=== PATIENT | female | born 1955 | race Caucasian/White ===

== ENCOUNTER 2024-03-05 22:57 | Inpatient (IN) | payer MEDICARE, SELFPAY ==
[2024-03-05] VITALS (10 sets, daily range): BP systolic 93–117; BP diastolic 46–73; BMI 15.2
[2024-03-05 18:34] LABS: % Basophils 0.1 % (0-2); % Eosinophils 0.1 % (0-6); % Immature Granulocytes 0.6 % (0-0.5); % Lymphocytes 19.8 % (20.5-51.1); % Monocytes 8.1 % (1.7-9.3); % Neutrophils 71.3 % (42.2-75.2); Absolute Immature Granulocytes 0.1 10^3/uL (0-0.05); Absolute Lymphocytes 1.8 10^3/uL (1.2-3.4); Absolute Monocytes 0.7 10^3/uL (0.1-0.6); Absolute Neutrophils 6.4 10^3/uL (1.4-6.5); Hematocrit 41.3 % (37.0-47.0); Hemoglobin 15.1 g/dL (12.0-16.0); Mean Corp Hgb Conc. 36.6 g/dL (33.0-37.0); Mean Corpuscular Hgb 31.8 pg (27.0-31.0); Mean Corpuscular Volume 86.9 fL (81.0-99.0); Mean Platelet Volume 9.8 fL (7.4-10.4); Nucleated Red Blood Cells % 0 %; Platelet Count 168 10^3/uL (130-400); Red Blood Cell Count 4.75 10^6/uL (4.20-5.40); Red Cell Dist. Width 13.7 % (11.5-14.5); White Blood Cell Count 8.9 10^3/uL (4.8-10.8)
[2024-03-05] MEDS: NSS 500 IV (18:47)
[2024-03-05 19:08] LABS: Ammonia < 9 umol/L (9-30)
[2024-03-05 19:39] LABS: ALT (SGPT) 41 U/L (0-35); AST (SGOT) 66 U/L (14-36); Albumin 3.1 g/dl (3.5-5.0); Alkaline Phosphatase 77 U/L (38-126); Blood Urea Nitrogen 14 mg/dl (7-17); Calcium 8.1 mg/dl (8.4-10.2); Carbon Dioxide 25 mmol/L (22-30); Chloride 95 mmol/L (98-107); Estimated Creatinine Clearance 45 ml/min; Glucose 83 mg/dl (70-99); Potassium 4.1 mmol/L (3.5-5.1); Sodium 126 mmol/L (135-145); Total Bilirubin 0.9 mg/dl (0.2-1.3); Total Protein 5.8 g/dl (6.3-8.2); eGFR > 60.00
--- NOTE | 2024-03-05 20:05 | ED.GENMED ---
History of Present Illness
General
Chief Complaint: Change in Mental Status
Time Seen by Provider: 03/05/24 18:24
History of Present Illness
History of Present Illness:
68-year-old female with remote history of breast cancer status postmastectomy presents to the emergency department for evaluation of confusion for the past 24 to 48 hours. states that she typically has no level of confusion, seems to be
'off' for the past few days but does not provide many further details of the symptoms. Patient cannot tell me why she is here, she is oriented only to place and self, disoriented to time. She denies any pain or other complaints otherwise. The
does note that she is not eaten or drank for the past several days and it has been 'a few weeks' since she has last eaten a full meal. Does not seek preventative medical care, estimates it has been at least 15 years since her last
medical evaluation. He notes that it was in the early that she was treated for breast cancer
Review of Systems
Review of Systems
Allergies reviewed?: Yes
All Other Systems: ROS reviewed and negative except as documented in HPI and ROS
Phy Exam
Physical Exam
Physical Exam:
GEN: Frail and emaciated appearing, no acute distress
Eyes: PERRLA, EOMs intact, no scleral icterus
HENT: NCAT, oral mucosa dry, severe bitemporal wasting
Lungs: CTAB, no wheezes, rales, rhonchi, normal chest wall excursion
Cardiac: RRR, no M/R/G, no peripheral edema. Radial pulses 2+ bilat
Abdomen: Flat, nontender
Neuro: Alert, follows commands, oriented to self and place only, disoriented to time, bilateral upper and lower extremity strength is symmetric
MSK: No gross deformity or ecchymosis. No edema. No digital clubbing
Skin: No rashes, petechiae. Normal color, no pallor or jaundice.
Psych: Calm, cooperative, proper hygiene
Course
Orders/Labs/Results
Orders:
Orders
03/05/24 18:03
EKG [Electrocardiogram (*1)] Urgent
Reason for Study: Tachycardia
EKG- Treatment ONCE
03/05/24 18:24
Ammonia Urgent
Complete Blood Count/With Diff Urgent
03/05/24 18:37
CT Head W/o Iv Contrast Urgent
Comment:
Reason For Exam: altered mental status
0.9% Sodium Chloride 500 ml [Nss] 500 ml IV BOLUS
03/05/24 19:13
Comprehensive Metabolic Panel Urgent
Serum Osmolality Urgent
Comment: ADD ON
03/05/24 19:48
Add On- LAB Urgent
Tests Added?: serum osmol
03/05/24 20:37
Osmolality, Random Urine Urgent
Date Specimen was Collected: 03/05/24
Time Specimen was Collected: 20:36
Urinalysis Reflex To Culture Urgent
Date Specimen was Collected: 03/05/24
Time Specimen was Collected: 20:36
Urine Microscopic Reflex Cult Urgent
Urine Sodium Urgent
Date Specimen was Collected: 03/05/24
Time Specimen was Collected: 20:36
Urine Culture Urgent
MICHAEL Source: U
Specimen Description:
Date Specimen was Collected: 03/05/24
Time Specimen was Collected: 20:36
03/05/24 21:03
0.9% Sodium Chloride 1000 ml [Nss] 1,000 ml IV 78 mls/hr
Abnormal Lab Results
03/05/24 03/05/24 03/05/24
18:24 19:13 20:37
MCH 31.8 H pg
(27.0-31.0)
Abs Immat Gran (auto) 0.1 H 10^3/uL
(0-0.05)
Absolute Monos (auto) 0.7 H 10^3/uL
(0.1-0.6)
Immature Gran % 0.6 H %
(0-0.5)
Lymphocytes % 19.8 L %
(20.5-51.1)
Sodium 126 L mmol/L
(135-145)
Chloride 95 L mmol/L
(98-107)
Serum Osmolality 261 L mOsm/kg
(275-300)
Calcium 8.1 L mg/dl
(8.4-10.2)
AST 66 H U/L
(14-36)
ALT 41 H U/L
(0-35)
Ammonia < 9 L umol/L
(9-30)
Total Protein 5.8 L g/dl
(6.3-8.2)
Albumin 3.1 L g/dl
(3.5-5.0)
Urine Ketones 1+ A
(Negative)
Ur Occult Blood Reflex 1+ A
(Negative)
Leukocyte Esterase Rfl Trace A
(Negative)
Urine Bacteria (Reflex) Moderate A
(Negative)
Urine Sodium 18 L mmol/L
(30-90)
03/05/24 18:24
03/05/24 19:13
Vital Signs
Initial and Last Documented VS:
Initial Vital Signs
Temp Pulse Resp BP Pulse Ox
98.2 F 115 18 102/73 97
03/05/24 17:58 03/05/24 17:58 03/05/24 17:58 03/05/24 17:58 03/05/24 17:58
Last Documented Vital Signs
Temp Pulse Resp BP Pulse Ox
98.2 F 78 15 117/46 100
03/05/24 17:58 03/05/24 21:08 03/05/24 21:08 03/05/24 21:08 03/05/24 21:08
MDM/Problems Addressed
MDM/Problems Addressed:
Patient is moderately hyponatremic and likely profoundly dehydrated based on history, she does not take any prescription meds that would cause SIADH. Due to her significant confusion will admit for gentle IV fluid rehydration, no evidence of
infectious etiology, CT of the head with no acute disease.
*Critical Care Note
Total Time (30-74mins, 75-104mins- exclusive of procedures): Not Applicable
ED Attending Note
-
Portions of this chart may have been created with voice recognition software.� Occasional wrong word or��sound alike� substitutions may have occurred due to the inherent limitations of voice recognition software.
Discharge Plan
Departure
Patient Disposition: Admit
Date of Disposition: 03/05/24
Time of Disposition: 21:42
Presentation/result/management discussed w/ accepting MD/DO: Hospitalist
Discharge Problem:
Acute metabolic encephalopathy, Acute hyponatremia, Acute dehydration, Malnutrition
Prescriptions:
No Action
No Current Medications
0
Referrals:
NONE,* [Family Provider] -
Interventions
Interventions:
*Risk Screen - Suicide Last Done: 03/05/24 17:58
*General Assessment Last Done: 03/05/24 17:58
*Neglect/Abuse Screening Last Done: 03/05/24 17:58
ED- Pulmonary Assessment Last Done: 03/05/24 18:30
ED- Neurological Assessment Last Done: 03/05/24 18:30
ED- Cardiac Assessment Last Done: 03/05/24 18:30
Discharge Date and Time
Print Language: TAIWANESE
[2024-03-05 20:41] LABS: Osmolality Serum 261 mOsm/kg (275-300)
[2024-03-05 20:46] LABS: Urine Albumin Trace (Neg - Trace); Urine Bilirubin Negative (Negative); Urine Character Slightly Cloudy (Clear); Urine Color Yellow; Urine Glucose Negative (Negative); Urine Ketone 1+ (Negative); Urine Leukocyte Trace (Negative); Urine Nitrite Negative (Negative); Urine Occult Blood 1+ (Negative); Urine Urobilinogen Negative (Neg - 1+)
[2024-03-05 20:59] LABS: Urine Squamous Cell >30 /LPF (Few)
[2024-03-05 21:01] LABS: Urine Bacteria Moderate (Negative); Urine Red Blood Cell 0-2 /HPF (0-2)
[2024-03-05 21:06] LABS: Urine Sodium 18 mmol/L (30-90)
[2024-03-05] MEDS: NSS 1000 IV (21:12)
[2024-03-05 21:15] LABS: Osmolality Urine 481 mOsm/kg (300-900)
--- NOTE | 2024-03-05 21:44 | HPS.HSE ---
Addendum entered and electronically signed by Korey Malik DO 03/05/24 23:32:
Patient seen and examined independently. Agree with findings and plan as set forth by ZUNILDA Khan.
Patient is a 68y F with PMH significant for breast cancer and no recent routine healthcare who presents to ED with her for evaluation of confusion. states that patient has seemed increasingly confused over the past 2 days or so.
Intermittent visual hallucinations noted at home. In the ED, patient is alert but confused. Not oriented to time. She denies any specific complaints.
states that she eats very little - and has done for several years. She drinks water throughout the day and drinks 2-3 beers daily on average. She is an every day smoker.
Ass:
Acute Confusion / Disorientation
Symptomatic Hyponatremia
Alcohol Use Disorder
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
Tobacco Use Disorder
Protein-Calorie Malnutrition
Breast Cancer s/p Mastectomy (1989)
Plan:
Admit for further evaluation and treatment.
Symptoms / confusion likely secondary to Na abnormality which seems secondary to beer potomania / SIADH.
CT head with old CVA / encephalomalacia which could contribute to inappropriate ADH release.
Check CXR, TFTs, AM Cortisol, etc.
Fluid restriction.
Follow for improvement in Na levels and confusion.
Nephrology evaluation for additional recommendations.
Monitor for symptoms of alcohol withdrawal and treat as needed.
Original Note:
Family Physician
-
Family Physician: * NONE
Chief Complaint
-
change in mental status
History of Present Illness
Patient is a 68-year-old female with PMH breast cancer with mastectomy in 1989. Patient is AAOx2 with noted confusion. Patients at bedside that helped supply HPI r/t patient confusion. Over past two day patient has had new onset confusion
with episodes of visual and audible hallucinations. Mr. Pierson states that patient has been eating very little over the past several years, approximately a total of 1-1.5 meals a day. Patient states she drinks water all day, but unable to quantify
an amount, states he has not paid that close attention but she does carry a 'glass' of water with her all day. Patient also reports she smokes a half of pack of cigarettes a day for years and drinks two to three beers a day. Patient and
spouse deny any recent travel, sickness, shortness of breath, chest pain, nausea, vomiting, constipation, diarrhea, urinary symptoms, fever or chills.
Medical History
Past Medical History
Past Medical History: Reports Other
Additional Past Medical History:
Breast Cancer
Past Surgical History: Reports Other
Additional Past Surgical History:
Mastectomy 1989
Social History
Tobacco: Smoker (0.5 pack per day)
Alcohol: Daily (2-3 beers per day)
Drug: None
Personal:
Living: With Family
Employment: Retired
Family History
Family History: Cancer (Mom and Sister from breast cancer)
Allergies / Home Medications
Allergies reflects when Allergies were last updated in [facility].
Home Medications with original date entered in [facility]
Allergy/Medication List:
Allergies
Allergy/AdvReac Type Severity Reaction Status Date / Time
No Known Allergies Allergy Unverified 03/05/24 17:58
Home Medications Table - record
�Medication �Instructions �Recorded �Confirmed
No Meds [No Current Medications] 03/05/24 03/05/24
Review of Systems
-
History Source: Patient and Family
Constitutional: Reports No Symptoms
EENT: Reports No Symptoms
Respiratory: Reports No Symptoms
Cardiac: Reports No Symptoms
Abdomen/GI: Reports No Symptoms
: Reports No Symptoms
Musculoskeletal: Reports No Symptoms
Skin: Reports No Symptoms
Neurological: Reports Other (change in mental status, confusion, audible/visual hallucinations)
Endocrine: Reports No Symptoms
Hematologic/Lymphatic: Reports No Symptoms
Psych: Reports No Symptoms
Physical Exam
Vital Signs
Vital Signs
Temp Pulse Resp BP Pulse Ox
98.2 F 78 15 117/46 100
03/05/24 17:58 03/05/24 21:08 03/05/24 21:08 03/05/24 21:08 03/05/24 21:08
Physical Exam
General: Well Developed, Well Nourished, No Apparent Distress and Cachectic
HEENT: NormoCephalic, Moist mucous membranes, Atraumatic and PERRLA
Respiratory: Clear and Non Labored Respirations
Cardiac: S1/S2 and Regular Rhythm; No Murmur, Rub or Gallop
Breast: Deferred by me
GI: Soft, Non Tender, Non Distended and Normal Bowel Sounds; No Organomegaly
Rectal: Deferred by Provider
Genito-urinary: Deferred by me
Musculoskeletal: No Clubbing, No Cyanosis and No Edema
Skin: Warm, Dry and IV/Catheter Site; No Rash
Neuro: Awake, Alert, Nonfocal/grossly intact and Other (Oriented to self and place, not oriented to time)
Hematologic/Lymphatic: No Lymphadenopathy
Psych: Calm and Confused
Laboratory Results
-
03/05/24 18:24
03/05/24 19:13
Laboratory Results
Total Bilirubin 0.9 mg/dl (0.2-1.3) 03/05/24 19:13
AST 66 U/L (14-36) H 03/05/24 19:13
ALT 41 U/L (0-35) H 03/05/24 19:13
Alkaline Phosphatase 77 U/L (38-126) 03/05/24 19:13
Data Reviewed
-
CT Scan: Report Reviewed by me (No acute intracranial abnormality noted. No acute intracranial hemorrhage. Old infarct with encephalomalacia involving the right temporal lobe.)
Lab Data: Labs Reviewed by me (Na+ 126)
Impression/Plan
-
IMPRESSION/PLAN:
#Hyponatremia vs. SIADH
- Na+ 126
- Head CT: No acute intracranial abnormality noted. No acute intracranial hemorrhage. 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
- Chest X-Ray
- Fluid restriction 40 ounces/day
- Consult Nephrology
#Alcohol dependency
- drinks 2-3 beers per day for years
- MSAS protocol
#Nicotine dependency
- smokes 0.5/pk/day
- encourage smoking cessation
- affects all aspects of care
Full Code
DVT Px:Lovenox
[2024-03-06 00:28] VITALS: BP 119/78; BMI 15.2
--- NOTE | 2024-03-06 00:30 | PTCARENOTE ---
Pt arrived to [facility] from ED and ambulated with x1 assist from stretcher to bed. Pt is AAOx2 to person and place. No complaints of pain, VSS. Call mari explained to pt who verbalizes understanding but remains confused; bed alarm in place and bed
in lowest position.
[2024-03-06 01:47] LABS: INR 1.07; PT 13.7 Sec (11.4-14.6)
[2024-03-06 01:48] LABS: APTT 26.8 Sec (23.4-35.0)
[2024-03-06 01:52] LABS: Phosphorus 3.9 mg/dl (2.5-4.5)
[2024-03-06 02:19] LABS: Alcohol None Detected; GGTP 68 U/L (12-43)
[2024-03-06 02:26] LABS: B-Hydroxybutyrate 1.27 mmol/L (0.02-0.27)
[2024-03-06 05:55] LABS: Urine Albumin Negative (Neg - Trace); Urine Bilirubin Negative (Negative); Urine Character Clear (Clear); Urine Color Yellow; Urine Glucose Negative (Negative); Urine Ketone 2+ (Negative); Urine Leukocyte Negative (Negative); Urine Nitrite Negative (Negative); Urine Occult Blood Negative (Negative); Urine Urobilinogen Negative (Neg - 1+)
[2024-03-06 06:09] LABS: Amphetamines Negative (Negative); Barbiturates Negative (Negative); Benzodiazepines Negative (Negative); Buprenorphine Negative (Negative); Cocaine Negative (Negative); Marijuana Negative (Negative); Methadone Negative (Negative); Methamphetamines Negative (Negative); Opiates Negative (Negative); Phencyclidine Negative (Negative); Tricyclic Antidepressants Negative (Negative)
[2024-03-06 07:00] VITALS: BP 105/65
[2024-03-06 07:25] LABS: Hematocrit 33.9 % (37.0-47.0); Hemoglobin 12.4 g/dL (12.0-16.0); Mean Corp Hgb Conc. 36.6 g/dL (33.0-37.0); Mean Corpuscular Volume 87.6 fL (81.0-99.0); Mean Platelet Volume 9.6 fL (7.4-10.4); Platelet Count 141 10^3/uL (130-400); Red Blood Cell Count 3.87 10^6/uL (4.20-5.40); Red Cell Dist. Width 13.7 % (11.5-14.5); White Blood Cell Count 7.6 10^3/uL (4.8-10.8)
[2024-03-06 08:07] LABS: Cortisol, Random 19.5 ug/dl; TSH 0.56 uIU/ml (0.47-4.68)
[2024-03-06 08:25] LABS: Blood Urea Nitrogen 13 mg/dl (7-17); Calcium 7.9 mg/dl (8.4-10.2); Carbon Dioxide 18 mmol/L (22-30); Chloride 100 mmol/L (98-107); Estimated Creatinine Clearance 52 ml/min; Glucose 61 mg/dl (70-99); Potassium 3.5 mmol/L (3.5-5.1); Sodium 129 mmol/L (135-145); eGFR > 60.00
[2024-03-06 08:36] LABS: Osmolality Serum 264 mOsm/kg (275-300)
[2024-03-06 08:52] LABS: Osmolality Urine 509 mOsm/kg (300-900)
[2024-03-06] MEDS: THIAMINE INJECTION 200 MG IV (09:33)
[2024-03-06] MEDS: FOLVITE 1 MG PO (09:33)
--- NOTE | 2024-03-06 09:44 | W.PN.HOSP.TC ---
Today's Communication/Plan
-
High-dose IV thiamine
Fluid restriction
Nutrition consult
Nephrology consult
PT/OT
Assessment / Plan
Assessment / Plan
Gen-awake, alert, not completely oriented, NAD
HEENT-NC, AT, anicteric, clear oral mm
Neck-supple
CV-reg, no M, +S1/S2
Lungs-clear B/L
Abd-soft, NT, ND
Ext-no edema
Musculoskeletal-no cyanosis, clubbing
Skin-warm and dry
Neuro-grossly non-focal. Right beating nystagmus on right lateral gaze
Psych-calm, cooperative
Wernicke encephalopathy -likely due to alcoholism. Diagnostic criteria are nystagmus, confusion, malnutrition. Ambulate with PT to assess for ataxia. Start high-dose IV thiamine.
Hyponatremia - probably due to multiple factors including SIADH, alcohol consumption, low solute consumption, etc. Sodium improving with fluid restriction. Nephrology consulted.
TSH normal, random cortisol 19.5. Serum osmolality 264, urine osmolality 481, urine sodium 18.
Alcohol use disorder -she claims she drinks 4 cans of beer daily, 12 ounces each. Denies liquor consumption. Counseled on need to abstain moving forward to improve her health. Watch for alcohol withdrawal symptoms. Continue thiamine, folic acid.
Tobacco dependence -chest x-ray consistent with hyperinflation, likely COPD. Incidental 1.5 cm sclerotic lesion in the region of the left suprascapular notch noted. Will need outpatient follow-up.
Protein/calorie malnutrition -in the setting of alcohol abuse. Consult nutrition.
Evidence of old infarct on CT head with encephalomalacia involving the right temporal lobe.
History of breast cancer -treated in 1989 with mastectomy.
Full code
Anticipated Discharge: > 48 hours
Subjective/Interval History
-
Date of Service: March 06, 2024
Patient seen and examined. No complaints.
Objective Data
-
Labs:
Laboratory Results
03/06/24 03/06/24
01:25 06:50
WBC 7.6
Hgb 12.4
Hct 33.9 L
Plt Count 141
PT 13.7
INR 1.07
APTT 26.8
Sodium 129 L
Potassium 3.5
Chloride 100
Carbon Dioxide 18 L
BUN 13
Creatinine 0.6
Glucose 61 L
Calcium 7.9 L
Vital Signs:
Vital Signs
Temp Pulse Resp BP Pulse Ox
98.1 F 99 16 105/65 94
03/06/24 07:00 03/06/24 07:00 03/06/24 07:00 03/06/24 07:00 03/06/24 07:00
I&O
03/05/24 03/06/24 03/07/24
06:59 06:59 06:59
Intake Total 240 / 240
Balance 240 / 240
Review of Systems
-
History Source: Patient
All other systems: Reviewed and negative
--- NOTE | 2024-03-06 11:01 | W.CON.NEPH ---
Consultation
-
Date/Time Consultation Requested: 03/06/2024 7:30 AM
Date/Time Consultation Performed: 03/06/2024 11:00
Requesting Provider: Dr. Malik
Performing Provider: Dr. Chong
Reason for Consultation: Hyponatremia
Medical History
-
Chief Complaint: Hyponatremia
History of Present Illness:
Patient is a 68-year-old female with PMH breast cancer with mastectomy in 1989. The patient presented to the emergency room with confusion. Over past two days the patient has had new onset confusion with episodes of visual and audible
hallucinations. Her states that patient has been eating very little over the past several years, approximately a total of 1-1.5 meals a day. Patient states she drinks water all day, but unable to quantify an amount, states he has
not paid that close attention but she does carry a 'glass' of water with her all day. Patient also reports she smokes a half of pack of cigarettes a day for years and drinks two to three beers a day. Patient and spouse deny any recent travel,
sickness, shortness of breath, chest pain, nausea, vomiting, constipation, diarrhea, urinary symptoms, fever or chills. When she presented to the hospital her serum sodium level was depressed to 126 and nephrology was consulted.
Past Medical History
Breast cancer status post mastectomy in 1989
Social History
Tobacco: Smoker
Alcohol: Daily
Family History
No CKD
Allergies / Home Medications
Allergy/AdvReac Type Severity Reaction Status Date / Time
No Known Allergies Allergy Unverified 03/05/24 17:58
�Medication �Instructions �Recorded �Confirmed �Type
No Meds [No Current Medications] 03/05/24 03/05/24 History
Review of Systems
-
History Source: Patient
All other systems: Negative unless noted
Constitutional: Other (Decreased appetite)
Abdomen/GI: Anorexia
Neurological: Other (Confusion)
Physical Exam
Vital Signs
Vital Signs
Temp Pulse Resp BP Pulse Ox
98.1 F 99 16 105/65 94
03/06/24 07:00 03/06/24 07:00 03/06/24 07:00 03/06/24 07:00 03/06/24 07:00
Lab Results
03/06/24 06:50
03/06/24 06:50
WBC 7.6 10^3/uL (4.8-10.8) 03/06/24 06:50
RBC 3.87 10^6/uL (4.20-5.40) L 03/06/24 06:50
Hgb 12.4 g/dL (12.0-16.0) 03/06/24 06:50
Hct 33.9 % (37.0-47.0) L 03/06/24 06:50
Plt Count 141 10^3/uL (130-400) 03/06/24 06:50
Sodium 129 mmol/L (135-145) L 03/06/24 06:50
Potassium 3.5 mmol/L (3.5-5.1) 03/06/24 06:50
Chloride 100 mmol/L (98-107) 03/06/24 06:50
Carbon Dioxide 18 mmol/L (22-30) L 03/06/24 06:50
BUN 13 mg/dl (7-17) 03/06/24 06:50
Creatinine 0.6 mg/dL (0.6-1.0) 03/06/24 06:50
eGFR > 60.00 03/06/24 06:50
Glucose 61 mg/dl (70-99) L 03/06/24 06:50
Calcium 7.9 mg/dl (8.4-10.2) L 03/06/24 06:50
Phosphorus 3.9 mg/dl (2.5-4.5) 03/06/24 01:25
Albumin 3.1 g/dl (3.5-5.0) L 03/05/24 19:13
Physical Exam
General: AOx3, Nontoxic , NAD, profoundly cachectic
HEENT: PERRL, EOMI, Anicteric, Conjunctivae Clear, Ear/Nose Intact, Hearing Normal, Oropharynx Clear/Moist, Dentition Intact, Facial Symmetry, Neck Supple, Neck: Trachea Midline, No JVD and No Thyromegaly, no Bruits
Respiratory: Clear to auscultation bilaterally with normal lung exersion
Cardiac: S1/S2 and Regular Rate/Rhythm
Breast: Deferred by me
Abdomen: Soft, Nontender, Nondistended, Normal Bowel Sounds and No Hepatosplenomegaly
Rectal: Deferred by Provider
Genito-urinary: No Costovertebral Tenderness
Extremities: No Clubbing, No Cyanosis and No Edema
Skin: No Rash or open lesions
Neuro: Nonfocal/Grossly Intact, CN II-XII (Intact) and Strength (Musculoskeletal exam 5 out of 5 both upper and lower extremities)
Hematologic/Lymphatic: No Cervical Lymphadenopathy, No Submandibular Lymphadenopathy and No Supraclavicular Lymphadenopathy
Psych: Mood/afflect pleasant, Insight/judgement questionable
Vascular: plus 2 pedal and radial pulses
Data Reviewed
-
CT Scan: Report Reviewed by me (CT of head report reviewed old infarct with encephalomalacia of right temporal lobe no acute findings)
Labs: Labs Reviewed by me (CBC BMP urine osmolarity urine sodium)
Old Records: Requested (Will obtain old patient records for previous sodium levels)
Assessment/Plan
-
Impression:
Hyponatremia
Confusion on presentation
Cachexia and anorexia
Tobacco and alcohol dependence
Plan:
Hyponatremia:
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
-I also believe her excessive fluid intake and poor solute intake in the setting of her hyponatremia is contributing
-Fluid restriction and affect
-If serum sodium levels do not rise I would implement salt tablets first
-Monitor closely for alcohol withdrawal
-TSH and cortisol within acceptable limits
[2024-03-06] MEDS: THIAMINE INJECTION 255 MG IV ×2 (12:55→16:32)
[2024-03-06] MEDS: KCL 20 MEQ PO (12:56)
--- NOTE | 2024-03-06 14:28 | CM ---
Initial assessment completed with pt.
Pt is a 68yr old female admitted with Hyponatremia/acute metabolic encephalopathy.
At baseline, pt lives with her in a 2 story home with 3ste and a 2nd floor bed/bath. Pt does have 1st floor bath.
Pt is indep and drives at bedside.
Pt has no equip and no hx of VN/SNF
PCP; [facility]
Pharm; [facility]
PLAN; Pt would like to dc to home with no needs identified.
[2024-03-06 14:45] VITALS: BP 112/77; O2SAT 95
[2024-03-06 15:00] VITALS: BP 119/73
[2024-03-06] MEDS: LOVENOX 40 MG SC (20:41)
[2024-03-06 22:58] VITALS: BP 103/55
[2024-03-07] MEDS: THIAMINE INJECTION 255 MG IV ×4 (00:06→23:48)
[2024-03-07 07:48] LABS: ALT (SGPT) 39 U/L (0-35); AST (SGOT) 56 U/L (14-36); Alkaline Phosphatase 73 U/L (38-126); Blood Urea Nitrogen 12 mg/dl (7-17); Calcium 8.2 mg/dl (8.4-10.2); Carbon Dioxide 17 mmol/L (22-30); Chloride 103 mmol/L (98-107); Estimated Creatinine Clearance 52 ml/min; Glucose 45 mg/dl (70-99); Magnesium 2.2 mg/dl (1.6-2.3); Phosphorus 3.5 mg/dl (2.5-4.5); Potassium 3.8 mmol/L (3.5-5.1); Sodium 132 mmol/L (135-145); Total Bilirubin 0.6 mg/dl (0.2-1.3); Total Protein 5.5 g/dl (6.3-8.2); eGFR > 60.00
[2024-03-07 08:01] VITALS: BP 104/54
[2024-03-07 08:10] LABS: Glucose - Point of Care 77 mg/dl (70-99)
[2024-03-07] MEDS: KCL 20 MEQ PO (09:41)
[2024-03-07] MEDS: FOLVITE 1 MG PO (09:41)
[2024-03-07 10:40] VITALS: BMI 15.2
--- NOTE | 2024-03-07 11:32 | W.PN.HOSP.TC ---
Today's Communication/Plan
-
Add Ensure
Encourage p.o. intake
Continue vitamins
PT/OT
Viral hepatitis panel
Assessment / Plan
Assessment / Plan
Gen-awake, alert, not completely oriented, NAD
HEENT-NC, AT, anicteric, clear oral mm
Neck-supple
CV-reg, no M, +S1/S2
Lungs-clear B/L
Abd-soft, NT, ND
Ext-no edema
Musculoskeletal-no cyanosis, clubbing
Skin-warm and dry
Neuro-grossly non-focal. Right beating nystagmus on right lateral gaze
Psych-calm, cooperative
Wernicke encephalopathy -likely due to alcoholism. Diagnostic criteria are nystagmus, confusion, malnutrition. Ambulate with PT to assess for ataxia. Continue high-dose IV thiamine.
Hyponatremia - probably due to multiple factors including SIADH, alcohol consumption, low solute consumption, etc. Sodium improving with fluid restriction. Nephrology consulted.
TSH normal, random cortisol 19.5. Serum osmolality 264, urine osmolality 481, urine sodium 18.
Hypoglycemia -likely due to malnutrition, alcoholism. Cortisol 19.5 making adrenal insufficiency unlikely.
[place] metabolic acidosis noted, bicarb 17. Positive urine ketones. Suspect starvation ketosis.
Alcohol use disorder -she claims she drinks 4 cans of beer daily, 12 ounces each. Denies liquor consumption. Counseled on need to abstain moving forward to improve her health. Watch for alcohol withdrawal symptoms. Continue thiamine, folic acid.
Patient has little insight into her drinking problem.
Acute hepatitis -mild transaminase elevation noted, GGT 68. Possibly due to alcohol induced hepatitis. Check viral hepatitis panel.
Tobacco dependence -chest x-ray consistent with hyperinflation, likely COPD. Incidental 1.5 cm sclerotic lesion in the region of the left suprascapular notch noted. Will need outpatient follow-up.
Protein/calorie malnutrition -in the setting of alcohol abuse. Nutrition consult noted. Ensure added.
Evidence of old infarct on CT head with encephalomalacia involving the right temporal lobe.
History of breast cancer -treated in 1989 with mastectomy.
Full code
PT/OT
Anticipated Discharge: 24 - 48 hours
Subjective/Interval History
-
Date of Service: March 07, 2024
Patient seen and examined. No complaints.
Objective Data
-
Labs:
Laboratory Results
03/07/24
06:33
Sodium 132 L
Potassium 3.8
Chloride 103
Carbon Dioxide 17 L
BUN 12
Creatinine 0.6
Glucose 45 L*
Calcium 8.2 L
Total Bilirubin 0.6
AST 56 H
ALT 39 H
Alkaline Phosphatase 73
Vital Signs:
Vital Signs
Temp Pulse Resp BP Pulse Ox
97.7 F 81 16 104/54 94
03/07/24 08:01 03/07/24 08:01 03/07/24 08:01 03/07/24 08:01 03/07/24 08:01
I&O
03/06/24 03/07/24 03/08/24
06:59 06:59 06:59
Intake Total 240 / 240 1250 / 1250
Balance 240 / 240 1250 / 1250
Review of Systems
-
History Source: Patient
All other systems: Reviewed and negative
--- NOTE | 2024-03-07 11:58 | CM ---
Patient with Dx Wernicke encephalopathy -likely due to alcoholism. Receiving IV Folic Acid & Thiamine. MSAS 1 per nursing. PT 03/06 recommends HH.
Message from Dr Rivas- patient needs KAMALA evdevika.
Spoke with patient who declines offer to speak with KAMALA, even regarding outpatient referrals or resources.
Plan follow patient's mobility and offer VN for PT as needed.
Plan home.
[2024-03-07 13:58] VITALS: BP 107/64; PULSE 74; O2SAT 95
--- NOTE | 2024-03-07 14:44 | W.PN.NEPH.PH ---
Today's Communication / Plan
-
Adjusted fluid restriction to 48 ounce
Follow BMP
Assessment/Plan
-
Impression:
Hyponatremia
Confusion on presentation/Wernicke's encephalopathy
Cachexia and anorexia
Tobacco and alcohol dependence
Plan:
Hyponatremia:
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
-I also believe her excessive fluid intake and poor solute intake in the setting of her hyponatremia is contributing
-Fluid restriction continues and sodium now up to 132
-If serum sodium levels do not rise I would implement salt tablets first
-Monitor closely for alcohol withdrawal
-TSH and cortisol within acceptable limits
-
-
Date of Service: March 07, 2024
CC / HPI / ROS
-
Chief Complaint:
Hyponatremia
History of Present Illness:
Serum sodium up to 132 on fluid restriction
Hemodynamically stable
Review of Systems:
Mental status improving
Poor appetite
No chest pain or shortness of breath
Labs
-
Labs:
WBC 7.6 10^3/uL (4.8-10.8) 03/06/24 06:50
RBC 3.87 10^6/uL (4.20-5.40) L 03/06/24 06:50
Hgb 12.4 g/dL (12.0-16.0) 03/06/24 06:50
Hct 33.9 % (37.0-47.0) L 03/06/24 06:50
Plt Count 141 10^3/uL (130-400) 03/06/24 06:50
Sodium 132 mmol/L (135-145) L 03/07/24 06:33
Potassium 3.8 mmol/L (3.5-5.1) 03/07/24 06:33
Chloride 103 mmol/L (98-107) 03/07/24 06:33
Carbon Dioxide 17 mmol/L (22-30) L 03/07/24 06:33
BUN 12 mg/dl (7-17) 03/07/24 06:33
Creatinine 0.6 mg/dL (0.6-1.0) 03/07/24 06:33
eGFR > 60.00 03/07/24 06:33
Glucose 45 mg/dl (70-99) L* 03/07/24 06:33
Calcium 8.2 mg/dl (8.4-10.2) L 03/07/24 06:33
Phosphorus 3.5 mg/dl (2.5-4.5) 03/07/24 06:33
Albumin 3.0 g/dl (3.5-5.0) L 03/07/24 06:33
Physical Exam
-
Vital Signs:
Vital Signs
Temp Pulse Resp BP Pulse Ox
97.7 F 81 16 104/54 94
03/07/24 08:01 03/07/24 08:01 03/07/24 08:01 03/07/24 08:01 03/07/24 09:00
Cardiovascular:: Regular rate and rhythm
Respiratory:: Bilateral: CTA
Lung Excursion:: Normal
Abdomen:: Nontender and Soft
Bowel Sounds:: Normal
Extremity Edema:: None: Bilateral:
Jo Catheter: No
[2024-03-07 15:00] VITALS: BP 110/69
[2024-03-07] MEDS: LOVENOX 40 MG SC (17:39)
[2024-03-07 23:57] VITALS: BP 95/70
[2024-03-08 07:26] VITALS: BP 124/71
[2024-03-08] MEDS: THIAMINE INJECTION 250 MG IV (08:44)
[2024-03-08] MEDS: FOLVITE 1 MG PO (08:46)
[2024-03-08] MEDS: KCL 20 MEQ PO ×2 (08:46→13:09)
[2024-03-08 09:11] LABS: ALT (SGPT) 32 U/L (0-35); AST (SGOT) 42 U/L (14-36); Albumin 2.3 g/dl (3.5-5.0); Alkaline Phosphatase 56 U/L (38-126); Blood Urea Nitrogen 6 mg/dl (7-17); Calcium 7.8 mg/dl (8.4-10.2); Carbon Dioxide 22 mmol/L (22-30); Chloride 104 mmol/L (98-107); Estimated Creatinine Clearance 52 ml/min; Glucose 81 mg/dl (70-99); Magnesium 1.9 mg/dl (1.6-2.3); Phosphorus 2.9 mg/dl (2.5-4.5); Potassium 3.4 mmol/L (3.5-5.1); Sodium 133 mmol/L (135-145); Total Bilirubin 0.3 mg/dl (0.2-1.3); Total Protein 4.6 g/dl (6.3-8.2); eGFR > 60.00
--- NOTE | 2024-03-08 12:52 | W.PN.NEPH.PH ---
Today's Communication / Plan
-
replace k
FR
Assessment/Plan
-
Impression:
Hyponatremia
Confusion on presentation/Wernicke's encephalopathy
Cachexia and anorexia
Tobacco and alcohol dependence
Plan:
Hyponatremia:
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
-I also believe her excessive fluid intake and poor solute intake in the setting of her hyponatremia is contributing
-Fluid restriction continues and sodium now up to 133
replace k
-If serum sodium levels do not rise I would implement salt tablets first
-Monitor closely for alcohol withdrawal
-TSH and cortisol within acceptable limits
-
-
Date of Service: March 08, 2024
CC / HPI / ROS
-
Chief Complaint:
Hyponatremia
History of Present Illness:
Serum sodium up to 133 on fluid restriction
Hemodynamically stable
Review of Systems:
Mental status improving
improving appetite
No chest pain or shortness of breath
Labs
-
Labs:
WBC 7.6 10^3/uL (4.8-10.8) 03/06/24 06:50
RBC 3.87 10^6/uL (4.20-5.40) L 03/06/24 06:50
Hgb 12.4 g/dL (12.0-16.0) 03/06/24 06:50
Hct 33.9 % (37.0-47.0) L 03/06/24 06:50
Plt Count 141 10^3/uL (130-400) 03/06/24 06:50
Sodium 133 mmol/L (135-145) L 03/08/24 08:26
Potassium 3.4 mmol/L (3.5-5.1) L 03/08/24 08:26
Chloride 104 mmol/L (98-107) 03/08/24 08:26
Carbon Dioxide 22 mmol/L (22-30) 03/08/24 08:26
BUN 6 mg/dl (7-17) L 03/08/24 08:26
Creatinine 0.4 mg/dL (0.6-1.0) L 03/08/24 08:26
eGFR > 60.00 03/08/24 08:26
Glucose 81 mg/dl (70-99) 03/08/24 08:26
Calcium 7.8 mg/dl (8.4-10.2) L 03/08/24 08:26
Phosphorus 2.9 mg/dl (2.5-4.5) 03/08/24 08:26
Albumin 2.3 g/dl (3.5-5.0) L 03/08/24 08:26
Physical Exam
-
Vital Signs:
Vital Signs
Temp Pulse Resp BP Pulse Ox
98.3 F 75 17 124/71 99
03/08/24 07:26 03/08/24 07:26 03/08/24 07:26 03/08/24 07:26 03/08/24 07:26
Cardiovascular:: Regular rate and rhythm
Respiratory:: Bilateral: CTA
Lung Excursion:: Normal
Abdomen:: Nontender and Soft
Extremity Edema:: None: Bilateral:
Jo Catheter: No
--- NOTE | 2024-03-08 13:38 | W.PN.HOSP.TC ---
Today's Communication/Plan
-
Conitnue IV thiamine
Assessment / Plan
Assessment / Plan
Imaging
Physical Exam
NAD, resting comfortably in bed, at bedside
Temporal wasting, muscle atrophy
Scleral anicteric
Moist mucous membranes
No JVD
CTA bilateral
Normal S1-S2 no murmurs
Soft nontender nondistended bowel sounds active
No peripheral pitting edema, No asterixs
Moves extremities spontaneously
AAOx3
Assessment and Plan
Warnicke's encephalopathy secondary to alcoholism as per previous documentation. I agree with this diagnosis.
-Continue on high-dose IV thiamine
Hyponatremia
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
-Improving now 133
-Fluid restrict
-If not improving then would consider adding salt tabs per nephrology's recommendations
Hypokalemia
-Replete as needed
Severe protein calorie malnutrition with evidence of cachexia temporal wasting
-Encourage protein intake
-Ensure
-Encourage p.o. intake
-Albumin 2.3 with a BMI of 15.2
-Nutrition consult noted
-In the setting of alcohol abuse
Transaminitis
-Related to alcohol use
-Improving mild labs
Anticipated Discharge: 24 - 48 hours
Subjective/Interval History
-
Date of Service: March 08, 2024
Seen and examined. No new complaints. No acute overnight events.
Objective Data
-
Labs:
Laboratory Results
03/08/24 03/08/24
07:20 08:26
Sodium Cancelled 133 L
Potassium Cancelled 3.4 L
Chloride Cancelled 104
Carbon Dioxide Cancelled 22
BUN Cancelled 6 L
Creatinine Cancelled 0.4 L
Glucose Cancelled 81
Calcium Cancelled 7.8 L
Total Bilirubin Cancelled 0.3
AST Cancelled 42 H
ALT Cancelled 32
Alkaline Phosphatase Cancelled 56
Vital Signs:
Vital Signs
Temp Pulse Resp BP Pulse Ox
98.3 F 75 17 124/71 99
03/08/24 07:26 03/08/24 07:26 03/08/24 07:26 03/08/24 07:26 03/08/24 07:26
I&O
03/07/24 03/08/24 03/09/24
06:59 06:59 06:59
Intake Total 1250 / 1250 2069
Balance 1250 / 1250 2069
[2024-03-08 15:27] VITALS: BP 124/62
--- NOTE | 2024-03-08 16:36 | CM ---
Chart reviewed and plan is to home with spouse when stable, possibly with visiting nurse services if patient is agreeable. per notes patient has declined [facility] follow up after discharge.
Plan; Home with spouse when stable.
[2024-03-08] MEDS: LOVENOX 40 MG SC (17:11)
[2024-03-08 21:49] LABS: Hepatitis B Core Ab, Total Negative (Negative); Hepatitis C Antibody Negative (Negative)
[2024-03-08 22:34] LABS: Hepatitis A IgM Antibody Negative (Negative)
[2024-03-08 23:30] VITALS: BP 131/63
[2024-03-09 00:52] LABS: Glucose - Point of Care 81 mg/dl (70-99)
[2024-03-09 07:25] VITALS: BP 119/61
[2024-03-09 08:10] LABS: ALT (SGPT) 29 U/L (0-35); AST (SGOT) 31 U/L (14-36); Albumin 2.5 g/dl (3.5-5.0); Alkaline Phosphatase 60 U/L (38-126); Blood Urea Nitrogen 5 mg/dl (7-17); Calcium 7.8 mg/dl (8.4-10.2); Carbon Dioxide 21 mmol/L (22-30); Chloride 103 mmol/L (98-107); Estimated Creatinine Clearance 52 ml/min; Glucose 71 mg/dl (70-99); Magnesium 1.9 mg/dl (1.6-2.3); Phosphorus 3.2 mg/dl (2.5-4.5); Potassium 3.6 mmol/L (3.5-5.1); Sodium 132 mmol/L (135-145); Total Bilirubin 0.4 mg/dl (0.2-1.3); Total Protein 4.7 g/dl (6.3-8.2); eGFR > 60.00
[2024-03-09] MEDS: KCL 20 MEQ PO (10:07)
[2024-03-09] MEDS: FOLVITE 1 MG PO (10:08)
[2024-03-09] MEDS: THIAMINE INJECTION 250 MG IV (10:08)
[2024-03-09] MEDS: FLUSH (NSS) 1 FLUSH IV (10:09)
--- NOTE | 2024-03-09 11:46 | CM ---
telephonic nurse case manager reviewed patient's chart and met with patient this am, case specialist offered patient visiting nurses services at discharge however patient declined stating that her spouse and daughter would be home to assist if needed.
Plan; Home when stable, patient declined [facility] and visiting nurses at discharge.
--- NOTE | 2024-03-09 14:21 | W.PN.HOSP.TC ---
Today's Communication/Plan
-
still with poor po intake.
will continue ivf for now
likely DC tomorrow
Assessment / Plan
Assessment / Plan
Imaging
Physical Exam
NAD, resting comfortably in bed, at bedside
Temporal wasting, muscle atrophy
Scleral anicteric
Moist mucous membranes
No JVD
CTA bilateral
Normal S1-S2 no murmurs
Soft nontender nondistended bowel sounds active
No peripheral pitting edema, No asterixs
Moves extremities spontaneously
AAOx3
Assessment and Plan
Warnicke's encephalopathy secondary to alcoholism as per previous documentation. I agree with this diagnosis.
-Continue on high-dose IV thiamine
Hyponatremia
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
-Improving now 133
-Fluid restrict
-If not improving then would consider adding salt tabs per nephrology's recommendations
Hypokalemia
-Replete as needed
Severe protein calorie malnutrition with evidence of cachexia temporal wasting
-Encourage protein intake
-Ensure
-Encourage p.o. intake
-Albumin 2.3 with a BMI of 15.2
-Nutrition consult noted
-In the setting of alcohol abuse
Transaminitis
-Related to alcohol use
-Improving mild labs
Anticipated Discharge: Within 24 hours
Subjective/Interval History
-
Date of Service: March 09, 2024
Seen and examined. No new complaints. No acute overniggt events
Objective Data
-
Labs:
Laboratory Results
03/09/24
07:15
Sodium 132 L
Potassium 3.6
Chloride 103
Carbon Dioxide 21 L
BUN 5 L
Creatinine 0.4 L
Glucose 71
Calcium 7.8 L
Total Bilirubin 0.4
AST 31
ALT 29
Alkaline Phosphatase 60
Vital Signs:
Vital Signs
Temp Pulse Resp BP Pulse Ox
98.4 F 61 20 119/61 96
03/09/24 07:25 03/09/24 07:25 03/09/24 07:25 03/09/24 07:25 03/09/24 07:25
I&O
03/08/24 03/09/24 03/10/24
06:59 06:59 06:59
Intake Total 2069 480 / 480
Balance 2069 480 / 480
[2024-03-09 15:09] VITALS: BP 131/67
--- NOTE | 2024-03-09 17:49 | W.PN.NEPH.PH ---
Today's Communication / Plan
-
will s/o, call with ?s
Assessment/Plan
-
Impression:
Hyponatremia
Confusion on presentation/Wernicke's encephalopathy
Cachexia and anorexia
Tobacco and alcohol dependence
Plan:
Hyponatremia:
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
-I also believe her excessive fluid intake and poor solute intake in the setting of her hyponatremia is contributing
-Fluid restriction continues and sodium stable in low 130s
-If serum sodium levels do not rise I would implement salt tablets first
-TSH and cortisol within acceptable limits
encourage solute intake
f/u with PCP, BMP in 1 week post d/c
-
-
Date of Service: March 09, 2024
CC / HPI / ROS
-
Chief Complaint:
Hyponatremia
History of Present Illness:
Serum sodium relatively stable at 132 on fluid restriction
Hemodynamically stable
Review of Systems:
Mental status improving
No chest pain or shortness of breath
Labs
-
Labs:
WBC 7.6 10^3/uL (4.8-10.8) 03/06/24 06:50
RBC 3.87 10^6/uL (4.20-5.40) L 03/06/24 06:50
Hgb 12.4 g/dL (12.0-16.0) 03/06/24 06:50
Hct 33.9 % (37.0-47.0) L 03/06/24 06:50
Plt Count 141 10^3/uL (130-400) 03/06/24 06:50
Sodium 132 mmol/L (135-145) L 03/09/24 07:15
Potassium 3.6 mmol/L (3.5-5.1) 03/09/24 07:15
Chloride 103 mmol/L (98-107) 03/09/24 07:15
Carbon Dioxide 21 mmol/L (22-30) L 03/09/24 07:15
BUN 5 mg/dl (7-17) L 03/09/24 07:15
Creatinine 0.4 mg/dL (0.6-1.0) L 03/09/24 07:15
eGFR > 60.00 03/09/24 07:15
Glucose 71 mg/dl (70-99) 03/09/24 07:15
Calcium 7.8 mg/dl (8.4-10.2) L 03/09/24 07:15
Phosphorus 3.2 mg/dl (2.5-4.5) 03/09/24 07:15
Albumin 2.5 g/dl (3.5-5.0) L 03/09/24 07:15
Physical Exam
-
Vital Signs:
Vital Signs
Temp Pulse Resp BP Pulse Ox
99.2 F 58 18 131/67 95
03/09/24 15:09 03/09/24 15:09 03/09/24 15:09 03/09/24 15:09 03/09/24 15:09
Cardiovascular:: Regular rate and rhythm
Respiratory:: Bilateral: CTA
Lung Excursion:: Normal
Abdomen:: Nontender and Soft
Extremity Edema:: None: Bilateral:
Jo Catheter: No
[2024-03-09] MEDS: LOVENOX 40 MG SC (18:16)
[2024-03-09 22:41] VITALS: BP 138/66
[2024-03-10 07:48] VITALS: BP 120/56
[2024-03-10] MEDS: FOLVITE 1 MG PO (08:39)
[2024-03-10] MEDS: KCL 20 MEQ PO (08:39)
[2024-03-10 08:46] LABS: ALT (SGPT) 31 U/L (0-35); AST (SGOT) 42 U/L (14-36); Albumin 2.8 g/dl (3.5-5.0); Alkaline Phosphatase 65 U/L (38-126); Blood Urea Nitrogen 7 mg/dl (7-17); Carbon Dioxide 18 mmol/L (22-30); Chloride 102 mmol/L (98-107); Estimated Creatinine Clearance 52 ml/min; Glucose 55 mg/dl (70-99); Phosphorus 3.5 mg/dl (2.5-4.5); Potassium 3.8 mmol/L (3.5-5.1); Sodium 134 mmol/L (135-145); Total Bilirubin 0.7 mg/dl (0.2-1.3); Total Protein 5.4 g/dl (6.3-8.2); eGFR > 60.00
[2024-03-10] MEDS: THIAMINE INJECTION 250 MG IV (11:00)
--- NOTE | 2024-03-10 13:35 | PTCARENOTE ---
medsitter removed at approximately 1300. patient continues to have bed alarm present. family at bedside presently
[2024-03-10 15:15] VITALS: BP 117/59
--- NOTE | 2024-03-10 15:19 | W.PN.HOSP.TC ---
Today's Communication/Plan
-
Assessment / Plan
Assessment / Plan
Physical Exam
NAD, resting comfortably in bed, at bedside
Temporal wasting, muscle atrophy
Scleral anicteric
Moist mucous membranes
No JVD
CTA bilateral
Normal S1-S2 no murmurs
Soft nontender nondistended bowel sounds active
No peripheral pitting edema, No asterixs
Moves extremities spontaneously
AAOx3
Assessment and Plan
Warnicke's encephalopathy secondary to alcoholism as per previous documentation. I agree with this diagnosis.
-Continue on high-dose IV thiamine
Hyponatremia
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
-Improving now 134
-Fluid restrict
-If not improving then would consider adding salt tabs per nephrology's recommendations
Hypokalemia
-Replete as needed
Severe protein calorie malnutrition with evidence of cachexia temporal wasting with BMI <18
-Encourage protein intake
-Ensure added. Per not drinking them
-Encourage p.o. intake
-Albumin 2.3 with a BMI of 15.2
-Nutrition consult noted
-In the setting of alcohol abuse
- -Per on going over hte last 1yr.
--she tell me that she does not have an appetite.
- -started remeron
-will need outpt age appropriate cancer screening
-if no improvement in po intake then may need to try feed tube/Peg tube ( updated about this plan)
-tsh 0.56
-will have psych eval
- - she tells me that she is not depressed. to me she has a flat affect, withdrawn, soft speech, poor eye contact, all of which is consistent with depression
- - -appreciate psychs input
Hypoglycemic
-releted to poor po intake
-accuchecks q6h
-if bg remains low then will need to start dextrose containing fluids
-hypoglycemic protocol
Transaminitis
-Related to alcohol use
-Improving meld labs
Anticipated Discharge: 24 - 48 hours
Subjective/Interval History
-
Date of Service: March 10, 2024
Seen and examined. No new complaints. No acute overnight events.
This morning hypoglycemic 55
Breakfast tray in front of her when I evaluated her top portion of banana eat and some scrambled eggs eaten. Likely had about 5% of tray
Objective Data
-
Labs:
Laboratory Results
03/10/24
07:57
Sodium 134 L
Potassium 3.8
Chloride 102
Carbon Dioxide 18 L
BUN 7
Creatinine 0.4 L
Glucose 55 L*
Calcium 8.0 L
Total Bilirubin 0.7
AST 42 H
ALT 31
Alkaline Phosphatase 65
Vital Signs:
Vital Signs
Temp Pulse Resp BP Pulse Ox
98.4 F 72 20 117/59 96
03/10/24 15:15 03/10/24 15:15 03/10/24 15:15 03/10/24 15:15 03/10/24 15:15
I&O
03/09/24 03/10/24 03/11/24
06:59 06:59 06:59
Intake Total 480 / 480 360 / 360
Balance 480 / 480 360 / 360
[2024-03-10 17:47] LABS: Glucose - Point of Care 96 mg/dl (70-99)
[2024-03-10] MEDS: LOVENOX 40 MG SC (17:54)
[2024-03-10] MEDS: REMERON 15 MG PO (21:31)
[2024-03-10 22:41] VITALS: BP 108/60
[2024-03-11 03:37] LABS: Glucose - Point of Care 79 mg/dl (70-99)
[2024-03-11 07:15] LABS: Glucose - Point of Care 76 mg/dl (70-99)
[2024-03-11 07:30] VITALS: BP 116/70
[2024-03-11 07:30] LABS: Phosphorus 3.1 mg/dl (2.5-4.5)
[2024-03-11 07:40] LABS: Glucose - Point of Care 81 mg/dl (70-99)
[2024-03-11] MEDS: FOLVITE 1 MG PO (07:48)
[2024-03-11] MEDS: KCL 20 MEQ PO (07:48)
[2024-03-11] MEDS: THIAMINE INJECTION 250 MG IV (08:05)
[2024-03-11 08:13] LABS: Hematocrit 34.2 % (37.0-47.0); Mean Corp Hgb Conc. 35.1 g/dL (33.0-37.0); Mean Corpuscular Hgb 31.7 pg (27.0-31.0); Mean Corpuscular Volume 90.2 fL (81.0-99.0); Mean Platelet Volume 9.6 fL (7.4-10.4); Platelet Count 176 10^3/uL (130-400); Red Blood Cell Count 3.79 10^6/uL (4.20-5.40); Red Cell Dist. Width 13.7 % (11.5-14.5); White Blood Cell Count 5.7 10^3/uL (4.8-10.8)
--- NOTE | 2024-03-11 09:47 | VNURNOTE ---
Late entry- [facility] liaison met with pt at bedside 03/10. Explained [facility] services, frequency, screened for PCP, homebound status. Unclear of skilled nurse need. The patient declined services. CLARICE Mitchell aware.
--- NOTE | 2024-03-11 09:58 | CM ---
Chart reviewed and pillowcase folder will follow with patient progress and assist with discharge planning needs.
Plan; To follow with patient progress.
--- NOTE | 2024-03-11 10:17 | CON.GI ---
Addendum entered and electronically signed by Owen Navas MD 03/11/24 13:21:
I saw and examined the patient.
The HYDROMETEOROLOGICAL TECHNICIAN or PA's note was reviewed and I agree with the note.
Comment: 68yo female presents with change in MS and no significant recent medical care. She has lost weight over last 5 years and has no appetite. Eats very little. Drinks significant EtOH and treating for Wernicke's encephalopathy this adm. Had
hyponatremia on admission, treated by Nephrology. Denies dysphagia, abd pain, vomiting. BMS somewhat erratic. History partially given by family in room. No prior EGD/colonoscopy. LFTs mildly elevated on admission AST 66, ALT 41. INR and
platelets normal arguing against cirrhosis. GI consulted for PEG. CT CAP ordered
REC:
Would await results of CT CAP first to r/o occult malignancy or other significant pathology
She is able to eat and ideally would prefer enteral feeding via mouth rather than TF. Encouraged PO supplements. Remeron started.
If CT negative, consider DHT feeds first and consider PEG early next week if not improving
Original Note:
Consultation
-
Date/Time Consultation Requested: 03/11/24 1000
Date/Time Consultation Performed: 03/11/24 1015
Requesting Provider: Parish Coe MD
Performing Provider: ZUNILDA Green, Owen navas MD
Reason for Consultation: peg evaluation
Medical History
Chief Complaint / HPI
Chief Complaint: malnutrition
History of Present Illness:
Pt is a 68yo with hx breast Ca with prior mastectomy, chemo and radiation, depression, ETOH/tobacco abuse presents with no medical care for last 10+ years with change in mental status on 03/05. On admission noted with BMI 15 with severe
calorie malnutrition, hyponatremia, hypoalbuminemia and concern for Wernicke's encephalopathy. HCT on admission with old infarct with encephalomalacia right temp lobe and CXR with subscapular sclerotic lesion--- calcification vs mets.Labs on
admission noted with for hyponatremia with Na down to 126 with elevated serum osmolarity c/w SIADH, hypoglycemia with FBS down to 45, hypoalbuminemia with albumin 3.1 on admission and mild AST 66/ALT 41 with improvement since admission. Labs
otherwise stable TSH, cortisol, hbg, platelets and INR. Tox screen neg, no ETOH detected but elevated B hydroxybutyrate. Asked to eval for malnutrition and eval for peg.
In review with family, pt has always been thin with decreased appetite. She retired in December and family concerned for increased ETOH use. Pt admits to 2-3 drink per week but per family at least 2-3 week per day. Prior to admission she was
noted with confusion and difficulty getting out of bed. Pt admits to occasional constipation with miralax use as needed but denies odynophagia, dysphagia, nausea, vomiting, abdominal pain, diarrhea or rectal bleeding. She also denies difficulty
with gait or numbness in extremities.
3. 1.5 cm sclerotic lesion in the region of the left suprascapular notch. Diagnostic possibilities are (1) a benign sclerotic bone tumor, (2) an extraosseous calcific or ossific body, or (3) a blastic osseous metastasis given the history of breast
cancer.
Past Medical History
Past Medical History: Cancer (breast CA with prior mastectomy, chemo and radiation), Psychiatric (depression) and Other (severe protein calorie malnutrition, hyponatremia, SIADH )
Past Surgical History: Other (mastectomy )
Social History
Tobacco: Smoker
Alcohol: Daily (2-3 drinks )
Drug: None
Personal:
Living: With Family
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
Family History
Family History: Other (no family hx colon CA or polyps)
Allergies / Home Medications
Allergy/AdvReac Type Severity Reaction Status Date / Time
No Known Allergies Allergy Unverified 03/05/24 17:58
�Medication �Instructions �Recorded
No Meds [No Current Medications] 03/05/24
Review of Systems
-
History Source: Patient and Family
Constitutional: Reports Weight Loss (over time with chronic low weight and decreased appetite ) and Fatigue
EENT: Reports No Symptoms
Respiratory: Reports No Symptoms
Cardiac: Reports No Symptoms
Abdomen/GI: Reports Constipated
: Reports No Symptoms
Musculoskeletal: Reports No Symptoms
Skin: Reports No Symptoms
Neurological: Reports Weakness
Endocrine: Reports No Symptoms
Hematologic/Lymphatic: Reports No Symptoms
Vital Signs
Temp Pulse Resp BP Pulse Ox
97.4 F 76 24 116/70 97
03/11/24 07:30 03/11/24 07:30 03/11/24 07:30 03/11/24 07:30 03/11/24 07:30
Physical Exam
Exam
General: Other (thin appearing female with flat affect )
HEENT: Normocephalic and Anicteric
Respiratory: Clear
Cardiac: Regular Rhythm
GI: Soft, Non Tender and Non Distended
Musculoskeletal: No Clubbing and No Cyanosis
Skin: Warm and Dry
Neuro: Awake, Alert, AO x 3 and Other (no asterixis )
Psych: Calm
Results
WBC 5.7 10^3/uL (4.8-10.8) 03/11/24 08:04
Hgb 12.0 g/dL (12.0-16.0) 03/11/24 08:04
Hct 34.2 % (37.0-47.0) L 03/11/24 08:04
MCV 90.2 fL (81.0-99.0) 03/11/24 08:04
Plt Count 176 10^3/uL (130-400) D 03/11/24 08:04
Absolute Neuts (auto) 6.4 10^3/uL (1.4-6.5) 03/05/24 18:24
PT 13.7 Sec (11.4-14.6) 03/06/24 01:25
INR 1.07 03/06/24 01:25
APTT 26.8 Sec (23.4-35.0) 03/06/24 01:25
Sodium 134 mmol/L (135-145) L 03/10/24 07:57
Potassium 3.8 mmol/L (3.5-5.1) 03/10/24 07:57
Chloride 102 mmol/L (98-107) 03/10/24 07:57
Carbon Dioxide 18 mmol/L (22-30) L 03/10/24 07:57
BUN 7 mg/dl (7-17) 03/10/24 07:57
Creatinine 0.4 mg/dL (0.6-1.0) L 03/10/24 07:57
Calcium 8.0 mg/dl (8.4-10.2) L 03/10/24 07:57
Total Bilirubin 0.7 mg/dl (0.2-1.3) 03/10/24 07:57
AST 42 U/L (14-36) H 03/10/24 07:57
ALT 31 U/L (0-35) 03/10/24 07:57
Alkaline Phosphatase 65 U/L (38-126) 03/10/24 07:57
Hepatitis A IgM Ab Negative (Negative) 03/07/24 11:56
Hep B Core Total Ab Negative (Negative) 03/07/24 11:56
Hep B Core IgM Ab Cancelled 03/07/24 11:56
Hepatitis C Antibody Negative (Negative) 03/07/24 11:56
Diagnostic Image Results:
CT chest/abd/pelvis pending
03/05 HCT
No acute intracranial abnormality noted. No acute intracranial hemorrhage. 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
03/06/2024 CR Chest - 2 Views
1. Moderate bilateral lung hyperinflation.
2. Previous right mastectomy.
3. 1.5 cm sclerotic lesion in the region of the left suprascapular notch. Diagnostic possibilities are (1) a benign sclerotic bone tumor, (2) an extraosseous calcific or ossific body, or (3) a blastic osseous metastasis given the history of breast
cancer.
Prior GI Procedures:
EGD: none
Colonoscopy: none
Assessment / Plan
-
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 On admission noted with
BMI 15 with severe calorie malnutrition (per family chronic low wt) hyponatremia with SIADH, hypoalbuminemia, hypoglycemia, mild transaminase elevation and concern for Wernicke's encephalopathy. Asked to eval for malnutrition and peg placement.
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 Labs on admission noted with for hyponatremia with Na down to 126 with elevated serum osmolarity c/w SIADH,
hypoglycemia with FBS down to 45, hypoalbuminemia with albumin 3.1 on admission and mild AST 66/ALT 41 with improvement since admission. Labs otherwise stable TSH, cortisol, hbg, platelets and INR. Tox screen neg, no ETOH detected but elevated B
hydroxybutyrate. No prior EGD or colonoscopy.
-several calorie malnutrition
-change in mental status with concern for Wernicke's encephalopathy
-hyponatremia with SIADH
-hypoglycemia
-depression
-ETOH/tobacco abuse
-tobacco abuse
-transaminase elevation with improvement since admission
-CXR with sclerotic lesion-- calcification vs mets
-hx breast CA 1989 with mastectomy/chemo and radiation with no medical care in last 10 + years
-constipation
PLAN:
In review with family pt has had chronic low weight now with some worsening appetite recently
agree with Remeron can help with depression and appetite-- will need close watch of Na with use
plan for CT chest/abd/pelvis -- will add oral contrast to study to exclude malignant process with hx breast CA/sclerotic lesion on CXR
if CT stable discussed option for nutrition-- ideal option is oral diet with supplement but if pt unwilling to eat can consider temporary DHT to see if start of nutrition stimulates appetites. If still no improvement can consider peg but noted with
risks of procedure vs benefit
ETOH abstinence
continue thiamine and folate
encouraged PO intakes
cont rx for hyponatremia per renal
reviewed with Psych with concern for depression
some chronic constipation -- check stool burden on CT-- will need to consider eventual OP screening colonoscopy when able to tolerate prep
family updated
-
-
Thank you for consultation and allowing me to participate in the patient's care. Please call the communications instructor GI physician during the after hours with any questions or concerns.
[2024-03-11 10:37] LABS: Blood Urea Nitrogen 8 mg/dl (7-17); Carbon Dioxide 22 mmol/L (22-30); Chloride 103 mmol/L (98-107); Estimated Creatinine Clearance 52 ml/min; Glucose 75 mg/dl (70-99); Potassium 3.8 mmol/L (3.5-5.1); Sodium 132 mmol/L (135-145); eGFR > 60.00
[2024-03-11] MEDS: OMNIPAQUE 50 ML PO (11:00)
--- NOTE | 2024-03-11 11:32 | CON.MD ---
Consultation - Medical
-
patient seen chart reviewed. case discussed with cm and gi. daughter and at bedside. 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 family notes she had note eaten for a few days and in recent weeks she had
not consumed a full meal. her bmi is 15.2. she has always been on the thin side but never this thin. unclear how much weight she has lost. judie feels mom has been increasingly depressed for about five years. 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 she said 'it was starting to get old'. d has noted mom's sensorium at this point is much clearer and patient was able to engage in this interview. she was oriented for the most part (she said originally
it was nov then corrected herself). she was not ready to say she was depressed but when d said her opinion she did not disagree. she has been drinking more admits to two to three beers daily . she has no energy at this point. sleeps too much. she
is NOT suicidal there is nothing to suggest psychosis she does not enjoy much. she used to garden, read watch tv now not much interests her. she was on zoloft some years ago. she thinks it 'may have helped but is not sure
past psych hx no hosp or therapy in the past see above re zoloft
medical hx breast ca rx w mastectomy in 1989. she has not seen an md in over ten years. notable on admit hyponatremia resolving w Na now of 134 hx cva as seen on cat brain. cbc ok qtc elevated at 549 ua osmolality greater than [address] chest abd pelvis w contrast ordered vital signs ok has not been in etoh wd notably needed no ativan as per msas beta hydroxybutyrate elevated patient apparently has had hypoglycemic episodes documented here
fh mother w dep anx brother depressed committed suicide
substance abuse see above re etoh
social resides w h of many years retired medical records receptionist two kids two grands used to enjoy reading gardening
mse alert ox3 cooperative. some psychomotor retardation. depressed mood affect constricted no si aver intelligence insight poor judgment fair
recommendations i do feel patient is depressed. she is NOT suicidal. remeron ok could help w appetite and depression BUT need to monitor serum sodium. while remeron is better as far as hyponatremia goes it still can cause it. patient needs a pcp
to monitor physical and psych condition. it is unlikely she will go to a psychiatrist. feeding tube apparently under discussion advised patient that eating would be preferable obviously to a feeding tube . psych will look in on her over the
weekend.
--- NOTE | 2024-03-11 11:36 | PN.CDI ---
CDI
- -
CDI:
Physician Documentation Request
Admit Date: 03/05/24 22:57
Dear Doctor Saravanan,
Please review the following and provide your response in the progress notes.
Clinical Indicators:
- RN skin assessment indicates stage 2 coccyx pressure injury, POA
Physician documentation of the type and location of wounds is required for compliant documentation. Based on the above clinical findings and your assessment, please provide the following in your progress note:
1. Location of the ulcer/wound, including laterality.
2. Type (etiology) of ulcer/wound:
- Diabetic ulcer
- Arterial (ischemic) ulcer
- Traumatic wound
- Venous stasis ulcer
- Pressure (decubitus) ulcer
- Non-healing surgical wound
- Other
- Unable to determine
Use of terms such as suspected, likely, concern for, or probable (associated with a specific diagnosis that is being evaluated, monitored, or treated as if it exists) are acceptable and can be coded in the inpatient setting, when documented at the
time of discharge.
Thank you,
Anne Greco RN
CDI Specialist
Please use your independent medical judgment in providing your response.
*Source: National Pressure Ulcer Advisory Panel (NPUAP)
[2024-03-11 12:13] LABS: Glucose - Point of Care 165 mg/dl (70-99)
[2024-03-11 12:58] VITALS: BP 120/79
--- NOTE | 2024-03-11 13:49 | W.PN.HOSP.TC ---
Today's Communication/Plan
-
Assessment / Plan
Assessment / Plan
Physical Exam
NAD, resting comfortably in bed, daughter and both at bedside
Temporal wasting, muscle atrophy
Scleral anicteric
Moist mucous membranes
No JVD
CTA bilateral
Normal S1-S2 no murmurs
Soft nontender nondistended bowel sounds active
No peripheral pitting edema, No asterixs
Moves extremities spontaneously
AAOx3
Assessment and Plan
Warnicke's encephalopathy secondary to alcoholism as per previous documentation. I agree with this diagnosis.
-Continue on high-dose IV thiamine
Hyponatremia
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
-Improving now 134
-Fluid restrict
-Start salt tabs as she has been started on Remeron which has potential of causing hyponatremia
Hypokalemia
-Replete as needed
Severe protein calorie malnutrition with evidence of cachexia temporal wasting with BMI <18
-Encourage protein intake
-Ensure added. Per not drinking them
-Encourage p.o. intake
-Albumin 2.3 with a BMI of 15.2
-Nutrition consult noted
-In the setting of alcohol abuse
- -Per on going over hte last 1yr.
--she tell me that she does not have an appetite.
- -started remeron
-will need outpt age appropriate cancer screening
-if no improvement in po intake then may need to try feed tube/Peg tube ( updated about this plan)
-tsh 0.56
-will have psych eval
- - she tells me that she is not depressed. to me she has a flat affect, withdrawn, soft speech, poor eye contact, all of which is consistent with depression
- - -appreciate psychs input
I spoke with daughter at bedside. Discussed feeding tube. Discussed obtaining CT chest abdomen pelvis to rule out occult malignancy. GI consulted.
Hypoglycemic
-releted to poor po intake
-accuchecks q6h
-if bg remains low then will need to start dextrose containing fluids
-hypoglycemic protocol
Transaminitis
-Related to alcohol use
-Improving meld labs
Anticipated Discharge: > 48 hours
Subjective/Interval History
-
Date of Service: March 11, 2024
Seen and examined. No new complaints. No acute overnight events.
Objective Data
-
Labs:
Laboratory Results
03/11/24 03/11/24
06:17 08:04
WBC 5.7
Hgb 12.0
Hct 34.2 L
Plt Count 176 D
Sodium 132 L
Potassium 3.8
Chloride 103
Carbon Dioxide 22
BUN 8
Creatinine 0.4 L
Glucose 75
Calcium 8.0 L
Vital Signs:
Vital Signs
Temp Pulse Resp BP Pulse Ox
97.4 F 76 24 116/70 97
03/11/24 07:30 03/11/24 07:30 03/11/24 07:30 03/11/24 07:30 03/11/24 07:30
I&O
03/10/24 03/11/24 03/12/24
06:59 06:59 06:59
Intake Total 360 / 360 1200 / 1200
Balance 360 / 360 1200 / 1200
[2024-03-11 16:00] VITALS: BP 87/52
[2024-03-11] MEDS: LOVENOX 40 MG SC (16:07)
[2024-03-11 16:18] VITALS: BP 90/48
[2024-03-11 16:52] LABS: Glucose - Point of Care 150 mg/dl (70-99)
[2024-03-11] MEDS: SODIUM CHLORIDE 1 GRAM PO (19:39)
[2024-03-11 21:16] LABS: Glucose - Point of Care 136 mg/dl (70-99)
[2024-03-11] MEDS: REMERON 15 MG PO (21:21)
[2024-03-11 23:27] VITALS: BP 123/59
[2024-03-12 07:30] VITALS: BP 138/71
[2024-03-12 07:37] LABS: Glucose - Point of Care 107 mg/dl (70-99)
[2024-03-12 08:04] LABS: Hematocrit 36.7 % (37.0-47.0); Hemoglobin 12.9 g/dL (12.0-16.0); Mean Corp Hgb Conc. 35.1 g/dL (33.0-37.0); Mean Corpuscular Hgb 32.7 pg (27.0-31.0); Mean Corpuscular Volume 93.1 fL (81.0-99.0); Mean Platelet Volume 9.2 fL (7.4-10.4); Platelet Count 217 10^3/uL (130-400); Red Blood Cell Count 3.94 10^6/uL (4.20-5.40); Red Cell Dist. Width 13.6 % (11.5-14.5); White Blood Cell Count 6.4 10^3/uL (4.8-10.8)
[2024-03-12 09:31] LABS: Blood Urea Nitrogen 9 mg/dl (7-17); Calcium 8.5 mg/dl (8.4-10.2); Carbon Dioxide 28 mmol/L (22-30); Chloride 103 mmol/L (98-107); Estimated Creatinine Clearance 52 ml/min; Glucose 100 mg/dl (70-99); Potassium 3.9 mmol/L (3.5-5.1); Sodium 135 mmol/L (135-145); eGFR > 60.00
[2024-03-12] MEDS: SODIUM CHLORIDE 1 GRAM PO ×2 (09:49→21:33)
[2024-03-12] MEDS: KCL 20 MEQ PO (09:50)
[2024-03-12] MEDS: FOLVITE 1 MG PO (09:51)
[2024-03-12] MEDS: THIAMINE INJECTION 250 MG IV (09:52)
[2024-03-12 11:46] LABS: Glucose - Point of Care 191 mg/dl (70-99)
--- NOTE | 2024-03-12 14:42 | CM ---
manager of financial reporting reviewed patient's chart and met with patient, daughter, son and spouse. Patient ambulated 200 feet and recommendation is for visiting nurses, referral sent [facility] visiting nurses and referral sent to [facility] liaison yesterday. family
are asking about rehab however physical therapy are recommending home health not rehab at discharge. Family asking for list of private caregivers at discharge, list of caregivers provided to patient and family.
Plan; Home with spouse, and [facility], family has list of private caregivers.
[2024-03-12 15:00] VITALS: BP 96/54
--- NOTE | 2024-03-12 15:03 | W.PN.HOSP.TC ---
Today's Communication/Plan
-
still has poor po intake.
Assessment / Plan
Assessment / Plan
Imaging
CTAP
IMPRESSION:
Ovoid calcified soft tissue mass between the left scapular coracoid process and clavicle could represent dystrophic ossification along the course of the coracoclavicular ligament, possibly related to remote trauma or repetitive microtrauma, or
perhaps soft tissue chondroma.
No suspicious osteolytic or blastic lesion.
Mucous plugging in the left lower lobe. Minor patchy parenchymal opacity in the left lower lobe, related to atelectasis as a result of mucous plugging, or underlying infectious bronchiolitis.
Minor focus of subtle bronchiolitis in the central right lower lobe.
No focal dense consolidation.
Mild emphysematous lung changes. 1.5 mm nodule in the anterolateral left upper lobe. Consider follow-up in one year.
No obstructive uropathy. Renal cysts. Left renal small benign angiomyolipoma. Probable small complex left renal cyst (hemorrhagic or proteinaceous). Small solid mass not entirely excluded. Initial step for further evaluation may be considered with
ultrasound.
Moderate to advanced sigmoid diverticulosis. No diverticulitis.
Physical Exam
NAD, resting comfortably in bed, daughter and both at bedside
Temporal wasting, muscle atrophy
Scleral anicteric
Moist mucous membranes
No JVD
CTA bilateral
Normal S1-S2 no murmurs
Soft nontender nondistended bowel sounds active
No peripheral pitting edema, No asterixs
Moves extremities spontaneously
AAOx3
Assessment and Plan
Wernicke's encephalopathy secondary to alcoholism as per previous documentation. I agree with this diagnosis.
-Completed high-dose IV thiamine
-Continue PO thiamine
Hyponatremia
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
-Improving now 135
-Fluid restrict
-Started salt tabs as she has been started on Remeron which has potential of causing hyponatremia
-Continue to follow
Hypokalemia
-Replete as needed
Severe protein calorie malnutrition with evidence of cachexia temporal wasting with BMI <18
-Encourage protein intake
-Ensure added. Per not drinking them
-Encourage p.o. intake
-Albumin 2.3 with a BMI of 15.2
-Nutrition consult noted
-In the setting of alcohol abuse
- -Per on going over hte last 1yr.
--she tell me that she does not have an appetite.
- -started remeron
-will need outpt age appropriate cancer screening
-if no improvement in po intake then may need to try feed tube/Peg tube ( updated about this plan)
-tsh 0.56
-will have psych eval
- - she tells me that she is not depressed. to me she has a flat affect, withdrawn, soft speech, poor eye contact, all of which is consistent with depression
- - -appreciate psychs input
I spoke with daughter at bedside. Discussed feeding tube. Discussed obtaining CT chest abdomen pelvis to rule out occult malignancy. GI consulted.
-may consider DHT, family wants to see how much po intake she will take before placing a feeding tube
Hypoglycemic
-releted to poor po intake
-accuchecks q6h
-if bg remains low then will need to start dextrose containing fluids
-hypoglycemic protocol
Transaminitis
-Related to alcohol use
-Improving meld labs
-Repeat ordered for the AM
Anticipated Discharge: 24 - 48 hours
Subjective/Interval History
-
Date of Service: March 12, 2024
seen and examined. no new complaints. no acute overnight events
daughter at [facility]
verbalizing more this AM, most since Brooke started seeing her
daughter states that she had some chicken, a burger david from [employer]
reveiew CT report with daughter and gave her a copy
Objective Data
-
Labs:
Laboratory Results
03/12/24 03/12/24
07:46 09:09
WBC 6.4
Hgb 12.9
Hct 36.7 L
Plt Count 217 D
Sodium 135
Potassium 3.9
Chloride 103
Carbon Dioxide 28
BUN 9
Creatinine 0.5 L
Glucose 100 H
Calcium 8.5
Vital Signs:
Vital Signs
Temp Pulse Resp BP Pulse Ox
98.4 F 91 20 138/71 96
03/12/24 07:30 03/12/24 07:30 03/12/24 07:30 03/12/24 07:30 03/12/24 07:30
I&O
03/11/24 03/12/24 03/13/24
06:59 06:59 06:59
Intake Total 1200 / 1200 2039
Balance 1200 / 1200 2039
--- NOTE | 2024-03-12 16:47 | W.PN.GI.CBS2 ---
Addendum entered and electronically signed by Ria Zarate MD 03/12/24 19:50:
Remeron seems to be helping as well.
Addendum entered and electronically signed by Ria Zarate MD 03/12/24 19:50:
I saw and examined the patient.
The WINE STEWARD/STEWARDESS or PA's note was reviewed and I agree with the note.
Comment: Patient currently feels well. Denies any abdominal pain, nausea or vomiting. Reports that she is able to eat better. Family bedside.
History of alcohol abuse since tobacco abuse. Concern for Wernicke's encephalopathy.
Given she is able to tolerate p.o. diet, will do calorie count and if she continues to eat well, no need to discuss regarding PEG tube and patient is not interested either.
She does have chronic constipation, continue MiraLAX daily. Will need outpatient colonoscopy.
Will follow-up Friday on the calorie count, continue Ensure. Family updated at bedside
Original Note:
Today's Communication / Plan
-
Improved, patient tolerating more PO intake (ate soup, Ensure today; bur/fri yesterday)
-continue Remeron
Assessment / Plan
-
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 On admission noted with
BMI 15 with severe calorie malnutrition (per family chronic low wt) hyponatremia with SIADH, hypoalbuminemia, hypoglycemia, mild transaminase elevation and concern for Wernicke's encephalopathy. Asked to eval for malnutrition and peg placement.
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 Labs on admission noted with for hyponatremia with Na down to 126 with elevated serum osmolarity c/w SIADH,
hypoglycemia with FBS down to 45, hypoalbuminemia with albumin 3.1 on admission and mild AST 66/ALT 41 with improvement since admission. Labs otherwise stable TSH, cortisol, hbg, platelets and INR. Tox screen neg, no ETOH detected but elevated B
hydroxybutyrate. No prior EGD or colonoscopy.
-several calorie malnutrition
-change in mental status with concern for Wernicke's encephalopathy
-hyponatremia with SIADH
-hypoglycemia
-depression
-ETOH/tobacco abuse
-tobacco abuse
-transaminase elevation with improvement since admission
-CXR with sclerotic lesion-- calcification vs mets
-hx breast CA 1989 with mastectomy/chemo and radiation with no medical care in last 10 + years
-constipation
CT Abdomen/pelvis 03/11/24:
-Ovoid calcified soft tissue mass between the left scapular coracoid process and clavicle could represent dystrophic ossification along the course of the coracoclavicular ligament, possibly related to remote trauma or repetitive microtrauma, or
perhaps soft tissue chondroma.
-No suspicious osteolytic or blastic lesion.
-Mucous plugging in the left lower lobe. Minor patchy parenchymal opacity in the left lower lobe, related to atelectasis as a result of mucous plugging, or underlying infectious bronchiolitis.
-Minor focus of subtle bronchiolitis in the central right lower lobe.
-No focal dense consolidation.
-Mild emphysematous lung changes. 1.5 mm nodule in the anterolateral left upper lobe. Consider follow-up in one year.
-No obstructive uropathy. Renal cysts. Left renal small benign angiomyolipoma. Probable small complex left renal cyst (hemorrhagic or proteinaceous). Small solid mass not entirely excluded. Initial step for further evaluation may be considered with
ultrasound.
-Moderate to advanced sigmoid diverticulosis. No diverticulitis.
PLAN:
-In review with family pt has had chronic low weight now with some worsening appetite recently
-Agree with Remeron can help with depression and appetite-- will need close watch of Na with use
-ETOH abstinence
-continue thiamine and folate
-encouraged PO intake; patient has been eating more (confirmed by daughter who is at bedside). Would hold off on Dobhoff tube or PEG as patient seems to be tolerating PO intake better.
-some chronic constipation -- check stool burden on CT-- will need to consider eventual OP screening colonoscopy when able to tolerate prep
family updated
Subjective
Subjective
Date of Service: March 12, 2024
Patient has been eating more. Today she ate soup and Ensure. Yesterday had a burger, mal[place] fries.
-Remeron recently started, tolerating well
-no abdominal pain, n/v, or heartburn
Objective
Data Reviewed
Laboratory Data:
Laboratory Results
03/12/24 07:46
03/12/24 09:09
Laboratory Results
PT 13.7 Sec (11.4-14.6) 03/06/24 01:25
INR 1.07 03/06/24 01:25
APTT 26.8 Sec (23.4-35.0) 03/06/24 01:25
Phosphorus 3.1 mg/dl (2.5-4.5) 03/11/24 06:17
Magnesium 2.0 mg/dl (1.6-2.3) 03/11/24 06:17
Total Bilirubin 0.7 mg/dl (0.2-1.3) 03/10/24 07:57
AST 42 U/L (14-36) H 03/10/24 07:57
ALT 31 U/L (0-35) 03/10/24 07:57
Alkaline Phosphatase 65 U/L (38-126) 03/10/24 07:57
Vital Signs and I&O:
Vital Signs
Temp Pulse Resp BP Pulse Ox
97.9 F 68 16 96/54 96
03/12/24 15:00 03/12/24 15:00 03/12/24 15:00 03/12/24 15:00 03/12/24 15:00
I&O
03/11/24 03/12/24 03/13/24
06:59 06:59 06:59
Intake Total 1200 / 1200 2039
Balance 1200 / 1200 2039
Physical Exam
Physical Exam
GI: Soft, Non Distended, Non Tender and Normal Bowel Sounds
[2024-03-12 16:56] LABS: Glucose - Point of Care 98 mg/dl (70-99)
[2024-03-12] MEDS: LOVENOX 40 MG SC (18:18)
[2024-03-12 19:00] VITALS: BP 95/52
[2024-03-12] MEDS: REMERON 15 MG PO (21:33)
[2024-03-12 23:20] VITALS: BP 124/60
[2024-03-13 00:14] LABS: Glucose - Point of Care 116 mg/dl (70-99)
[2024-03-13 06:31] LABS: Glucose - Point of Care 97 mg/dl (70-99)
[2024-03-13 07:15] VITALS: BP 114/61
[2024-03-13 07:36] LABS: Hematocrit 31.4 % (37.0-47.0); Hemoglobin 10.8 g/dL (12.0-16.0); Mean Corp Hgb Conc. 34.4 g/dL (33.0-37.0); Mean Corpuscular Hgb 31.5 pg (27.0-31.0); Mean Corpuscular Volume 91.5 fL (81.0-99.0); Mean Platelet Volume 9.4 fL (7.4-10.4); Platelet Count 221 10^3/uL (130-400); Red Blood Cell Count 3.43 10^6/uL (4.20-5.40); Red Cell Dist. Width 13.7 % (11.5-14.5); White Blood Cell Count 6.8 10^3/uL (4.8-10.8)
[2024-03-13 07:55] LABS: ALT (SGPT) 20 U/L (0-35); AST (SGOT) 17 U/L (14-36); Albumin 2.4 g/dl (3.5-5.0); Alkaline Phosphatase 49 U/L (38-126); Blood Urea Nitrogen 7 mg/dl (7-17); Calcium 8.1 mg/dl (8.4-10.2); Carbon Dioxide 30 mmol/L (22-30); Chloride 104 mmol/L (98-107); Direct Bilirubin 0.1 mg/dl (0.0-0.4); Estimated Creatinine Clearance 52 ml/min; Glucose 96 mg/dl (70-99); Potassium 3.9 mmol/L (3.5-5.1); Sodium 136 mmol/L (135-145); Total Bilirubin 0.3 mg/dl (0.2-1.3); Total Protein 4.8 g/dl (6.3-8.2); eGFR > 60.00
[2024-03-13] MEDS: KCL 20 MEQ PO (10:22)
[2024-03-13] MEDS: SODIUM CHLORIDE 1 GRAM PO ×2 (10:22→20:03)
[2024-03-13] MEDS: FOLVITE 1 MG PO (10:22)
[2024-03-13] MEDS: VITAMIN B1 100 MG PO (10:22)
[2024-03-13] MEDS: MIRALAX 17 GRAMS PO (10:24)
[2024-03-13 13:29] LABS: Glucose - Point of Care 164 mg/dl (70-99)
--- NOTE | 2024-03-13 13:57 | W.PN.HOSP.TC ---
Today's Communication/Plan
-
calorie counts per GI
Assessment / Plan
Assessment / Plan
Imaging
CTAP
IMPRESSION:
Ovoid calcified soft tissue mass between the left scapular coracoid process and clavicle could represent dystrophic ossification along the course of the coracoclavicular ligament, possibly related to remote trauma or repetitive microtrauma, or
perhaps soft tissue chondroma.
No suspicious osteolytic or blastic lesion.
Mucous plugging in the left lower lobe. Minor patchy parenchymal opacity in the left lower lobe, related to atelectasis as a result of mucous plugging, or underlying infectious bronchiolitis.
Minor focus of subtle bronchiolitis in the central right lower lobe.
No focal dense consolidation.
Mild emphysematous lung changes. 1.5 mm nodule in the anterolateral left upper lobe. Consider follow-up in one year.
No obstructive uropathy. Renal cysts. Left renal small benign angiomyolipoma. Probable small complex left renal cyst (hemorrhagic or proteinaceous). Small solid mass not entirely excluded. Initial step for further evaluation may be considered with
ultrasound.
Moderate to advanced sigmoid diverticulosis. No diverticulitis.
Physical Exam
NAD, resting comfortably in bed, daughter and both at bedside
Temporal wasting, muscle atrophy
Scleral anicteric
Moist mucous membranes
No JVD
CTA bilateral
Normal S1-S2 no murmurs
Soft nontender nondistended bowel sounds active
No peripheral pitting edema, No asterixs
Moves extremities spontaneously
AAOx3
Assessment and Plan
Wernicke's encephalopathy secondary to alcoholism as per previous documentation. I agree with this diagnosis.
-Completed high-dose IV thiamine
-Continue PO thiamine
Hyponatremia
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
-Improving now 135
-Fluid restrict
-Started salt tabs as she has been started on Remeron which has potential of causing hyponatremia
-Continue to follow
Hypokalemia
-Replete as needed
Severe protein calorie malnutrition with evidence of cachexia temporal wasting with BMI <18
-Encourage protein intake
-Ensure added. Per not drinking them
-Encourage p.o. intake
-Albumin 2.3 with a BMI of 15.2
-Nutrition consult noted
-In the setting of alcohol abuse
- -Per on going over hte last 1yr.
--she tell me that she does not have an appetite.
- -started remeron
-will need outpt age appropriate cancer screening
-if no improvement in po intake then may need to try feed tube/Peg tube ( updated about this plan)
-tsh 0.56
-evaled by psych, no further recs provided, outpatietn follow up
-GI following, rec calorie counts and if low then would place terminal supervisor feeding tube
Hypoglycemic
-releted to poor po intake
-accuchecks q6h
-if bg remains low then will need to start dextrose containing fluids
-hypoglycemic protocol
Transaminitis
-Related to alcohol use
-Improving meld labs
-Repeat ordered for the AM
Anticipated Discharge: 24 - 48 hours
Subjective/Interval History
-
Date of Service: March 13, 2024
seen and examined. no new compalints. no acute overnight events
was about to eat breakfast, more and 4 pancake medallions with ensure
Objective Data
-
Labs:
Laboratory Results
03/13/24
07:12
WBC 6.8
Hgb 10.8 L
Hct 31.4 L
Plt Count 221
Sodium 136
Potassium 3.9
Chloride 104
Carbon Dioxide 30
BUN 7
Creatinine 0.4 L
Glucose 96
Calcium 8.1 L
Total Bilirubin 0.3
AST 17
ALT 20
Alkaline Phosphatase 49
Vital Signs:
Vital Signs
Temp Pulse Resp BP Pulse Ox
98.4 F 65 14 114/61 100
03/13/24 07:15 03/13/24 07:15 03/13/24 07:15 03/13/24 07:15 03/13/24 07:15
I&O
03/12/24 03/13/24 03/14/24
06:59 06:59 06:59
Intake Total 2039 530 / 530
Balance 2039 530 / 530
[2024-03-13 15:20] VITALS: BP 106/53
[2024-03-13] MEDS: LOVENOX 40 MG SC (17:24)
[2024-03-13 18:00] LABS: Glucose - Point of Care 141 mg/dl (70-99)
[2024-03-13] MEDS: REMERON 15 MG PO (22:06)
[2024-03-13 23:00] VITALS: BP 116/54
[2024-03-14 00:37] LABS: Glucose - Point of Care 107 mg/dl (70-99)
[2024-03-14 06:58] LABS: Glucose - Point of Care 95 mg/dl (70-99)
[2024-03-14 07:21] VITALS: BP 120/60
[2024-03-14 07:24] LABS: Hematocrit 31.9 % (37.0-47.0); Hemoglobin 11.1 g/dL (12.0-16.0); Mean Corp Hgb Conc. 34.8 g/dL (33.0-37.0); Mean Corpuscular Hgb 32.9 pg (27.0-31.0); Mean Corpuscular Volume 94.7 fL (81.0-99.0); Mean Platelet Volume 9.8 fL (7.4-10.4); Platelet Count 246 10^3/uL (130-400); Red Blood Cell Count 3.37 10^6/uL (4.20-5.40); Red Cell Dist. Width 13.9 % (11.5-14.5); White Blood Cell Count 7.9 10^3/uL (4.8-10.8)
[2024-03-14 07:40] LABS: Blood Urea Nitrogen 8 mg/dl (7-17); Carbon Dioxide 28 mmol/L (22-30); Chloride 105 mmol/L (98-107); Estimated Creatinine Clearance 52 ml/min; Glucose 84 mg/dl (70-99); Potassium 3.8 mmol/L (3.5-5.1); Sodium 138 mmol/L (135-145); eGFR > 60.00
[2024-03-14] MEDS: SODIUM CHLORIDE 1 GRAM PO ×2 (07:58→19:50)
[2024-03-14] MEDS: VITAMIN B1 100 MG PO (07:59)
[2024-03-14] MEDS: FOLVITE 1 MG PO (07:59)
[2024-03-14] MEDS: KCL 20 MEQ PO (07:59)
[2024-03-14] MEDS: MIRALAX 17 GRAMS PO (08:00)
[2024-03-14 12:11] LABS: Glucose - Point of Care 165 mg/dl (70-99)
--- NOTE | 2024-03-14 13:21 | W.PN.HOSP.TC ---
Addendum entered and electronically signed by Parish Coe MD 03/14/24 14:25:
present on admission coccyx
left buttock area
stage 2
Original Note:
Today's Communication/Plan
-
calorie count
update daughter [phone] (Sonal)
Assessment / Plan
Assessment / Plan
Imaging
CTAP
IMPRESSION:
Ovoid calcified soft tissue mass between the left scapular coracoid process and clavicle could represent dystrophic ossification along the course of the coracoclavicular ligament, possibly related to remote trauma or repetitive microtrauma, or
perhaps soft tissue chondroma.
No suspicious osteolytic or blastic lesion.
Mucous plugging in the left lower lobe. Minor patchy parenchymal opacity in the left lower lobe, related to atelectasis as a result of mucous plugging, or underlying infectious bronchiolitis.
Minor focus of subtle bronchiolitis in the central right lower lobe.
No focal dense consolidation.
Mild emphysematous lung changes. 1.5 mm nodule in the anterolateral left upper lobe. Consider follow-up in one year.
No obstructive uropathy. Renal cysts. Left renal small benign angiomyolipoma. Probable small complex left renal cyst (hemorrhagic or proteinaceous). Small solid mass not entirely excluded. Initial step for further evaluation may be considered with
ultrasound.
Moderate to advanced sigmoid diverticulosis. No diverticulitis.
Physical Exam
NAD, resting comfortably in bed, daughter and both at bedside
Temporal wasting, muscle atrophy
Scleral anicteric
Moist mucous membranes
No JVD
CTA bilateral
Normal S1-S2 no murmurs
Soft nontender nondistended bowel sounds active
No peripheral pitting edema, No asterixs
Moves extremities spontaneously
AAOx3
Assessment and Plan
Wernicke's encephalopathy secondary to alcoholism as per previous documentation. I agree with this diagnosis.
-Completed high-dose IV thiamine
-Continue PO thiamine
Hyponatremia
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
-Improving now 135
-Fluid restrict
-Started salt tabs as she has been started on Remeron which has potential of causing hyponatremia
-Continue to follow
Hypokalemia
-Replete as needed
Severe protein calorie malnutrition with evidence of cachexia temporal wasting with BMI <18
-Encourage protein intake
-Ensure added. Per not drinking them
-Encourage p.o. intake
-Albumin 2.3 with a BMI of 15.2
-Nutrition consult noted
-In the setting of alcohol abuse
- -Per on going over hte last 1yr.
--she tell me that she does not have an appetite.
- -started remeron
-will need outpt age appropriate cancer screening
-if no improvement in po intake then may need to try feed tube/Peg tube ( updated about this plan)
-tsh 0.56
-evaled by psych, no further recs provided, outpatietn follow up
-GI following, rec calorie counts and if low then would place intermediate teacher feeding tube
Hypoglycemic
-releted to poor po intake
-accuchecks q6h
-if bg remains low then will need to start dextrose containing fluids
-hypoglycemic protocol
Transaminitis
-Related to alcohol use
-Improving meld labs
-Repeat ordered for the AM
calorie counts
update daughter [phone] (Sonal)
Anticipated Discharge: 24 - 48 hours
Subjective/Interval History
-
Date of Service: March 14, 2024
seen and examined. no new comaplitns
daughter sonal at bedside
-she flies back to [place] tonight: [phone]
Objective Data
-
Labs:
Laboratory Results
03/14/24
06:00
WBC 7.9
Hgb 11.1 L
Hct 31.9 L
Plt Count 246
Sodium 138
Potassium 3.8
Chloride 105
Carbon Dioxide 28
BUN 8
Creatinine 0.4 L
Glucose 84
Calcium 8.0 L
Vital Signs:
Vital Signs
Temp Pulse Resp BP Pulse Ox
97.8 F 57 16 120/60 97
03/14/24 07:21 03/14/24 07:21 03/14/24 07:21 03/14/24 07:21 03/14/24 07:21
I&O
03/13/24 03/14/24 03/15/24
06:59 06:59 06:59
Intake Total 530 / 530 1440 / 1440
Balance 530 / 530 1440 / 1440
[2024-03-14 15:00] VITALS: BP 101/56
[2024-03-14 17:00] LABS: Glucose - Point of Care 108 mg/dl (70-99)
[2024-03-14] MEDS: LOVENOX 40 MG SC (18:01)
[2024-03-14 21:12] LABS: Glucose - Point of Care 96 mg/dl (70-99)
[2024-03-14] MEDS: REMERON 15 MG PO (21:19)
[2024-03-14 23:43] VITALS: BP 152/64
[2024-03-15 00:12] LABS: Glucose - Point of Care 86 mg/dl (70-99)
[2024-03-15 06:18] LABS: Glucose - Point of Care 89 mg/dl (70-99)
[2024-03-15 07:46] VITALS: BP 124/70
[2024-03-15] MEDS: VITAMIN B1 100 MG PO (07:53)
[2024-03-15] MEDS: KCL 20 MEQ PO (07:53)
[2024-03-15] MEDS: FOLVITE 1 MG PO (07:53)
[2024-03-15] MEDS: MIRALAX 17 GRAMS PO ×2 (07:53→20:48)
[2024-03-15] MEDS: SODIUM CHLORIDE 1 GRAM PO ×2 (07:53→20:48)
[2024-03-15 08:23] LABS: Hemoglobin 10.8 g/dL (12.0-16.0); Mean Corp Hgb Conc. 34.8 g/dL (33.0-37.0); Mean Corpuscular Hgb 32.8 pg (27.0-31.0); Mean Corpuscular Volume 94.2 fL (81.0-99.0); Mean Platelet Volume 9.2 fL (7.4-10.4); Platelet Count 304 10^3/uL (130-400); Red Blood Cell Count 3.29 10^6/uL (4.20-5.40); Red Cell Dist. Width 13.7 % (11.5-14.5); White Blood Cell Count 6.1 10^3/uL (4.8-10.8)
[2024-03-15 08:34] LABS: Blood Urea Nitrogen 10 mg/dl (7-17); Carbon Dioxide 27 mmol/L (22-30); Chloride 105 mmol/L (98-107); Estimated Creatinine Clearance 52 ml/min; Glucose 86 mg/dl (70-99); Potassium 4.2 mmol/L (3.5-5.1); Sodium 136 mmol/L (135-145); eGFR > 60.00
--- NOTE | 2024-03-15 10:21 | W.PN.HOSP.TC ---
Today's Communication/Plan
-
Continue calorie counts
Low flow require alternative feedings for such as PEG tube
update daughter [phone] (Mary)
Assessment / Plan
Assessment / Plan
Imaging
CTAP
IMPRESSION:
Ovoid calcified soft tissue mass between the left scapular coracoid process and clavicle could represent dystrophic ossification along the course of the coracoclavicular ligament, possibly related to remote trauma or repetitive microtrauma, or
perhaps soft tissue chondroma.
No suspicious osteolytic or blastic lesion.
Mucous plugging in the left lower lobe. Minor patchy parenchymal opacity in the left lower lobe, related to atelectasis as a result of mucous plugging, or underlying infectious bronchiolitis.
Minor focus of subtle bronchiolitis in the central right lower lobe.
No focal dense consolidation.
Mild emphysematous lung changes. 1.5 mm nodule in the anterolateral left upper lobe. Consider follow-up in one year.
No obstructive uropathy. Renal cysts. Left renal small benign angiomyolipoma. Probable small complex left renal cyst (hemorrhagic or proteinaceous). Small solid mass not entirely excluded. Initial step for further evaluation may be considered with
ultrasound.
Moderate to advanced sigmoid diverticulosis. No diverticulitis.
Physical Exam
NAD, resting comfortably in bed, daughter and both at bedside
Temporal wasting, muscle atrophy
Scleral anicteric
Moist mucous membranes
No JVD
CTA bilateral
Normal S1-S2 no murmurs
Soft nontender nondistended bowel sounds active
No peripheral pitting edema, No asterixs
Moves extremities spontaneously
AAOx3
Assessment and Plan
Wernicke's encephalopathy secondary to alcoholism as per previous documentation. I agree with this diagnosis.
-Completed high-dose IV thiamine
-Continue PO thiamine
Hyponatremia
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
-Improving now 135
-Fluid restrict
-Started salt tabs as she has been started on Remeron which has potential of causing hyponatremia
-Continue to follow
Hypokalemia
-Replete as needed
Severe protein calorie malnutrition with evidence of cachexia temporal wasting with BMI <18
-Encourage protein intake
-Ensure added. Per not drinking them
-Encourage p.o. intake
-Albumin 2.3 with a BMI of 15.2
-Nutrition consult noted
-In the setting of alcohol abuse
- -Per on going over hte last 1yr.
--she tell me that she does not have an appetite.
- -started remeron
-will need outpt age appropriate cancer screening
-if no improvement in po intake then may need to try feed tube/Peg tube ( updated about this plan)
-tsh 0.56
-evaled by psych, no further recs provided, outpatietn follow up
-GI following, rec calorie counts and if low then would place parts counterman feeding tube
Hypoglycemic
-releted to poor po intake
-accuchecks q6h
-if bg remains low then will need to start dextrose containing fluids
-hypoglycemic protocol
Transaminitis
-Related to alcohol use
-Improving meld labs
-Repeat ordered for the AM
calorie counts
update daughter [phone] (Mary)
Anticipated Discharge: 24 - 48 hours
Subjective/Interval History
-
Date of Service: March 15, 2024
Seen and examined. No new complaints. No acute overnight events.
States that she is eating however breakfast tray looks quite full
Again states does not have much of appetite
No family at bedside to push her to eat
Objective Data
-
Labs:
Laboratory Results
03/15/24
07:30
WBC 6.1
Hgb 10.8 L
Hct 31.0 L
Plt Count 304 D
Sodium 136
Potassium 4.2
Chloride 105
Carbon Dioxide 27
BUN 10
Creatinine 0.4 L
Glucose 86
Calcium 8.0 L
Vital Signs:
Vital Signs
Temp Pulse Resp BP Pulse Ox
98.3 F 62 17 124/70 96
03/15/24 07:46 03/15/24 07:46 03/15/24 07:46 03/15/24 07:46 03/15/24 07:46
I&O
03/14/24 03/15/24 03/16/24
06:59 06:59 06:59
Intake Total 1440 / 1440
Balance 1440 / 1440
[2024-03-15 12:50] LABS: Glucose - Point of Care 80 mg/dl (70-99)
--- NOTE | 2024-03-15 14:00 | CM ---
Home with spouse.
Plan; Home with spouse.
[2024-03-15 15:16] VITALS: BP 94/51; BP 98/54; PULSE 65; O2SAT 97
[2024-03-15 15:37] VITALS: BP 94/51
[2024-03-15] MEDS: LOVENOX 40 MG SC (17:16)
--- NOTE | 2024-03-15 17:51 | W.PN.GI.CBS2 ---
Today's Communication / Plan
-
PLAN:
Calorie count in progress with patient does not seem to be taking enough oral intake. severe protein energy malnutrition-noted nutrition recommendations.
Discussed with patient that if she does not have enough calorie intake, next step would be a feeding tube placement for failure to thrive.
Patient currently on Remeron, unclear, which it is helping her at this point.
she had CT scan of the chest/abdomen's pelvis without contrast which did not show any evidence of malignancy causing weight loss. Thank
-Noted hemoglobin is slightly low
Will check celiac panel and heme test stool as well.
-No bowel movement since admission in spite of MiraLAX, will increase MiraLAX to twice a day.
-ETOH abstinence
-continue thiamine and folate
Assessment / Plan
-
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 On admission noted with
BMI 15 with severe calorie malnutrition (per family chronic low wt) hyponatremia with SIADH, hypoalbuminemia, hypoglycemia, mild transaminase elevation and concern for Wernicke's encephalopathy. Asked to eval for malnutrition and peg placement.
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 Labs on admission noted with for hyponatremia with Na down to 126 with elevated serum osmolarity c/w SIADH,
hypoglycemia with FBS down to 45, hypoalbuminemia with albumin 3.1 on admission and mild AST 66/ALT 41 with improvement since admission. Labs otherwise stable TSH, cortisol, hbg, platelets and INR. Tox screen neg, no ETOH detected but elevated B
hydroxybutyrate. No prior EGD or colonoscopy.
-several calorie malnutrition
-change in mental status with concern for Wernicke's encephalopathy
-hyponatremia with SIADH
-hypoglycemia
-depression
-ETOH/tobacco abuse
-tobacco abuse
-transaminase elevation with improvement since admission
-CXR with sclerotic lesion-- calcification vs mets
-hx breast CA 1989 with mastectomy/chemo and radiation with no medical care in last 10 + years
-constipation
CT Abdomen/pelvis 03/11/24:
-Ovoid calcified soft tissue mass between the left scapular coracoid process and clavicle could represent dystrophic ossification along the course of the coracoclavicular ligament, possibly related to remote trauma or repetitive microtrauma, or
perhaps soft tissue chondroma.
-No suspicious osteolytic or blastic lesion.
-Mucous plugging in the left lower lobe. Minor patchy parenchymal opacity in the left lower lobe, related to atelectasis as a result of mucous plugging, or underlying infectious bronchiolitis.
-Minor focus of subtle bronchiolitis in the central right lower lobe.
-No focal dense consolidation.
-Mild emphysematous lung changes. 1.5 mm nodule in the anterolateral left upper lobe. Consider follow-up in one year.
-No obstructive uropathy. Renal cysts. Left renal small benign angiomyolipoma. Probable small complex left renal cyst (hemorrhagic or proteinaceous). Small solid mass not entirely excluded. Initial step for further evaluation may be considered with
ultrasound.
-Moderate to advanced sigmoid diverticulosis. No diverticulitis.
PLAN:
Calorie count in progress with patient does not seem to be taking enough oral intake. severe protein energy malnutrition-noted nutrition recommendations.
Discussed with patient that if she does not have enough calorie intake, next step would be a feeding tube placement for failure to thrive.
Patient currently on Remeron, unclear, which it is helping her at this point.
she had CT scan of the chest/abdomen's pelvis without contrast which did not show any evidence of malignancy causing weight loss. Thank
-Noted hemoglobin is slightly low
Will check celiac panel and heme test stool as well.
-No bowel movement since admission in spite of MiraLAX, will increase MiraLAX to twice a day.
-ETOH abstinence
-continue thiamine and folate
Subjective
Subjective
Date of Service: March 15, 2024
Patient denies any complaints. No bowel movement since admission.
Objective
Data Reviewed
Laboratory Data:
Laboratory Results
03/15/24 07:30
03/15/24 07:30
Laboratory Results
PT 13.7 Sec (11.4-14.6) 03/06/24 01:25
INR 1.07 03/06/24 01:25
APTT 26.8 Sec (23.4-35.0) 03/06/24 01:25
Phosphorus 3.1 mg/dl (2.5-4.5) 03/11/24 06:17
Magnesium 2.0 mg/dl (1.6-2.3) 03/11/24 06:17
Total Bilirubin 0.3 mg/dl (0.2-1.3) 03/13/24 07:12
AST 17 U/L (14-36) 03/13/24 07:12
ALT 20 U/L (0-35) 03/13/24 07:12
Alkaline Phosphatase 49 U/L (38-126) 03/13/24 07:12
Vital Signs and I&O:
Vital Signs
Temp Pulse Resp BP Pulse Ox
98.1 F 65 19 94/51 97
03/15/24 15:37 03/15/24 15:37 03/15/24 15:37 03/15/24 15:37 03/15/24 15:37
I&O
03/14/24 03/15/24 03/16/24
06:59 06:59 06:59
Intake Total 1440 / 1440
Balance 1440 / 1440
Physical Exam
Physical Exam
GI: Soft, Non Distended and Non Tender
[2024-03-15] MEDS: REMERON 15 MG PO (20:53)
[2024-03-15 23:00] VITALS: BP 106/49
[2024-03-16 00:29] LABS: Glucose - Point of Care 85 mg/dl (70-99)
[2024-03-16 06:04] LABS: Glucose - Point of Care 84 mg/dl (70-99)
[2024-03-16 07:20] VITALS: BP 136/66
[2024-03-16] MEDS: FOLVITE 1 MG PO (07:33)
[2024-03-16] MEDS: KCL 20 MEQ PO (07:33)
[2024-03-16] MEDS: MIRALAX 17 GRAMS PO (07:33)
[2024-03-16] MEDS: SODIUM CHLORIDE 1 GRAM PO (07:39)
[2024-03-16] MEDS: VITAMIN B1 100 MG PO (07:39)
[2024-03-16 08:15] LABS: Mean Corp Hgb Conc. 34.4 g/dL (33.0-37.0); Mean Corpuscular Hgb 31.8 pg (27.0-31.0); Mean Corpuscular Volume 92.5 fL (81.0-99.0); Mean Platelet Volume 9.8 fL (7.4-10.4); Platelet Count 247 10^3/uL (130-400); Red Blood Cell Count 3.46 10^6/uL (4.20-5.40); Red Cell Dist. Width 13.8 % (11.5-14.5); White Blood Cell Count 4.8 10^3/uL (4.8-10.8)
[2024-03-16 08:40] LABS: Blood Urea Nitrogen 10 mg/dl (7-17); Calcium 8.1 mg/dl (8.4-10.2); Carbon Dioxide 24 mmol/L (22-30); Chloride 107 mmol/L (98-107); Estimated Creatinine Clearance 52 ml/min; Glucose 76 mg/dl (70-99); Iron 60 ug/dl (37-170); Potassium 4.5 mmol/L (3.5-5.1); Sodium 136 mmol/L (135-145); eGFR > 60.00
[2024-03-16 08:49] LABS: Percent Saturation 32 % (20-50); Total Iron Binding Capacity 182 ug/dl (265-497)
[2024-03-16 10:14] LABS: Folate > 20.0 ng/ml (2.76-20); Vitamin B12 694 pg/ml (239-931)
--- NOTE | 2024-03-16 11:32 | W.PN.UPDATE ---
Update Note
Progress Note Update
Patient seen at bedside, chart reviewed, discussed with staff. Ms. Pierson is presently resting. RN denies any acute issues overnight. Patient has been noted to be cooperative. calorie count completed yesterday and awaiting results/recommendations.
There has been talk of a feeding tube however, RN believes this is not the wish if the family?
Impression/Recommendations: R/O depressive disorder, unspecified; Wernicke's encephalopathy secondary to alcoholism per history; Cachexia - Would continue with Remeron 15mg which could benefit depressive symptoms and appetite, started on 03/10 and
could take up to 6 weeks for notable benefit. Will follow.
--- NOTE | 2024-03-16 11:46 | W.PN.GI.CBS2 ---
Today's Communication / Plan
-
I review of nursing notes taking 50-80 percent and currently eating over 50 % lunch and not finished
calorie counts pending but I reviewed with patient again for peg and she declines
would hold on peg as pt appetite improving
will check follow up weight
await celiac panel with mild anemia
ETOH abstinence
cont thiamine/folate
cont Miralax daily
OP follow up for considering eventual colonoscopy
for discharge today
Assessment / Plan
-
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 On admission noted with
BMI 15 with severe calorie malnutrition (per family chronic low wt) hyponatremia with SIADH, hypoalbuminemia, hypoglycemia, mild transaminase elevation and concern for Wernicke's encephalopathy. Asked to eval for malnutrition and peg placement.
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 Labs on admission noted with for hyponatremia with Na down to 126 with elevated serum osmolarity c/w SIADH,
hypoglycemia with FBS down to 45, hypoalbuminemia with albumin 3.1 on admission and mild AST 66/ALT 41 with improvement since admission. Labs otherwise stable TSH, cortisol, hbg, platelets and INR. Tox screen neg, no ETOH detected but elevated B
hydroxybutyrate. No prior EGD or colonoscopy.
-several calorie malnutrition
-change in mental status with concern for Wernicke's encephalopathy
-hyponatremia with SIADH
-hypoglycemia
-depression
-ETOH/tobacco abuse
-tobacco abuse
-transaminase elevation with improvement since admission
-CXR with sclerotic lesion-- calcification vs mets
-hx breast CA 1989 with mastectomy/chemo and radiation with no medical care in last 10 + years
-constipation
CT Abdomen/pelvis 03/11/24:
-Ovoid calcified soft tissue mass between the left scapular coracoid process and clavicle could represent dystrophic ossification along the course of the coracoclavicular ligament, possibly related to remote trauma or repetitive microtrauma, or
perhaps soft tissue chondroma.
-No suspicious osteolytic or blastic lesion.
-Mucous plugging in the left lower lobe. Minor patchy parenchymal opacity in the left lower lobe, related to atelectasis as a result of mucous plugging, or underlying infectious bronchiolitis.
-Minor focus of subtle bronchiolitis in the central right lower lobe.
-No focal dense consolidation.
-Mild emphysematous lung changes. 1.5 mm nodule in the anterolateral left upper lobe. Consider follow-up in one year.
-No obstructive uropathy. Renal cysts. Left renal small benign angiomyolipoma. Probable small complex left renal cyst (hemorrhagic or proteinaceous). Small solid mass not entirely excluded. Initial step for further evaluation may be considered with
ultrasound.
-Moderate to advanced sigmoid diverticulosis. No diverticulitis.
PLAN:
I review of nursing notes taking 50-80 percent and currently eating over 50 % lunch and not finished
calorie counts pending but I reviewed with patient again for peg and she declines
would hold on peg as pt appetite improving
will check follow up weight
await celiac panel with mild anemia
ETOH abstinence
cont thiamine/folate
cont Miralax daily
OP follow up for considering eventual colonoscopy
for discharge today
Subjective
Subjective
Date of Service: March 16, 2024
03/16 formed stools, awaiting calorie counts, variable intake per nursing 50-80% but currently eating full grilled cheese [place] and 1/2 tomato soup
Objective
Data Reviewed
Laboratory Data:
Laboratory Results
03/16/24 07:45
03/16/24 07:14
Laboratory Results
PT 13.7 Sec (11.4-14.6) 03/06/24 01:25
INR 1.07 03/06/24 01:25
APTT 26.8 Sec (23.4-35.0) 03/06/24 01:25
Phosphorus 3.1 mg/dl (2.5-4.5) 03/11/24 06:17
Magnesium 2.0 mg/dl (1.6-2.3) 03/11/24 06:17
Total Bilirubin 0.3 mg/dl (0.2-1.3) 03/13/24 07:12
AST 17 U/L (14-36) 03/13/24 07:12
ALT 20 U/L (0-35) 03/13/24 07:12
Alkaline Phosphatase 49 U/L (38-126) 03/13/24 07:12
Vital Signs and I&O:
Vital Signs
Temp Pulse Resp BP Pulse Ox
98.2 F 56 19 136/66 99
03/16/24 07:20 03/16/24 07:20 03/16/24 07:20 03/16/24 07:20 03/16/24 07:20
I&O
03/15/24 03/16/24 03/17/24
06:59 06:59 06:59
Intake Total 480 / 480
Balance 480 / 480
Physical Exam
Physical Exam
HEENT: Anicteric, Moist mucous membranes and Other (thin appearing)
Cardiology: Normal Sinus Rhythm
Pulmonary: Clear
GI: Soft, Non Distended and Non Tender
Extremities: No Edema
Neuro: Non Focal
[2024-03-16 12:02] LABS: Glucose - Point of Care 93 mg/dl (70-99)
--- NOTE | 2024-03-16 12:06 | PTCARENOTE ---
notified dietitian, patient's calorie count is ready to be assessed.
--- NOTE | 2024-03-16 13:02 | CM ---
Home with spouse, and to follow up with obtaining a PCP, per patient she has an appointment set up, [facility] but without a PCP unable to set up vn, [id number] aware, patient's family have hired private duty after discharge.
Plan; Home no needs.
[2024-03-16 13:09] VITALS: BP 99/42
--- NOTE | 2024-03-16 13:39 | VNURNOTE ---
[facility] referral in place for home PT to see pt after she is seen by new PCP. Noted in referral. Placed in [facility].
--- NOTE | 2024-03-16 16:16 | W.PN.HOSP.TC ---
Today's Communication/Plan
-
d/c home
Assessment / Plan
Assessment / Plan
CT A/P
Ovoid calcified soft tissue mass between the left scapular coracoid process and clavicle could represent dystrophic ossification along the course of the coracoclavicular ligament, possibly related to remote trauma or repetitive microtrauma, or
perhaps soft tissue chondroma.
No suspicious osteolytic or blastic lesion.
Mucous plugging in the left lower lobe. Minor patchy parenchymal opacity in the left lower lobe, related to atelectasis as a result of mucous plugging, or underlying infectious bronchiolitis.
Minor focus of subtle bronchiolitis in the central right lower lobe.
No focal dense consolidation.
Mild emphysematous lung changes. 1.5 mm nodule in the anterolateral left upper lobe. Consider follow-up in one year.
No obstructive uropathy. Renal cysts. Left renal small benign angiomyolipoma. Probable small complex left renal cyst (hemorrhagic or proteinaceous). Small solid mass not entirely excluded. Initial step for further evaluation may be considered with
ultrasound.
Moderate to advanced sigmoid diverticulosis. No diverticulitis.

Wernicke's encephalopathy secondary to alcoholism as per previous documentation.
-Completed high-dose IV thiamine
-Continue PO thiamine
Hyponatremia -resolved
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
-Improving now 135
-Fluid restrict
-Started salt tabs as she has been started on Remeron which has potential of causing hyponatremia
-Continue to follow
Hypokalemia
-Replete as needed
Severe protein calorie malnutrition with evidence of cachexia temporal wasting with BMI <18
-Encourage protein intake
-Ensure added. Per not drinking them
-Encourage p.o. intake
-Albumin 2.3 with a BMI of 15.2
-Nutrition consult noted
-In the setting of alcohol abuse
-if no improvement in po intake then may need to try feed tube/Peg tube ( updated about this plan)
-tsh 0.56
-evaled by psych, no further recs provided, outpatient follow up
-GI following, rec calorie counts and if low then would place gyroscope repairer feeding tube
Hypoglycemic
-related to poor po intake
-accu-checks q6h
-if bg remains low then will need to start dextrose containing fluids
-hypoglycemic protocol
Transaminitis
-Related to alcohol use
-Improving meld labs
-Repeat ordered for the AM
Full code
Discharge home
Anticipated Discharge: Today
Subjective/Interval History
-
Date of Service: March 16, 2024
No issues overnight
Objective Data
-
Labs:
Laboratory Results
03/16/24 03/16/24
07:14 07:45
WBC 4.8
Hgb 11.0 L
Hct 32.0 L
Plt Count 247
Sodium 136
Potassium 4.5
Chloride 107
Carbon Dioxide 24
BUN 10
Creatinine 0.4 L
Glucose 76
Calcium 8.1 L
Vital Signs:
Vital Signs
Temp Pulse Resp BP Pulse Ox
98.2 F 72 18 99/42 96
03/16/24 13:09 03/16/24 13:09 03/16/24 13:09 03/16/24 13:09 03/16/24 13:09
I&O
03/15/24 03/16/24 03/17/24
06:59 06:59 06:59
Intake Total 480 / 480 180 / 180
Output Total 0 / 0
Balance 480 / 480 180 / 180
Review of Systems
-
Respiratory: Reports No Symptoms
Cardiac: Reports No Symptoms
Abdomen/GI: Reports No Symptoms
Physical Exam
-
General: Cachectic
HEENT: Negative Oxygen
Respiratory: Clear to Auscultation
Cardiac: Regular Rhythm and S1/S2; Negative Murmur or Rub
GI: Soft, Nontender, Nondistended and Normal Bowel Sounds
Musculoskeletal: No Edema
Neuro: Awake, Alert, Oriented, No Motor Deficits and Nonfocal/Grossly Intact
Psych: Calm
--- NOTE | 2024-03-16 17:06 | W.DCSUMMARY ---
Discharge Summary
Discharge Data
Date of Admission: 03/05/24
Date of Discharge: 03/16/24
-
Pending Results: No
Hospital Course
Discharging Physician : Dr Joaquin Coe
Disposition : Home
Primary care physician : Dr Wellington Berry
Principal Discharge diagnosis :
Warnicke's encephalopathy
Hyponatremia
Severe protein calorie malnutrition
Episodes of hypoglycemia
Alcohol use disorder
Acute transaminitis
Chronic Discharge diagnosis :
History of breast cancer post mastectomy/chemo/radiation
Depression
Cerebral infarcts
Hospital Course :
Patient is a 68-year-old female with above-mentioned past medical history was brought into hospital for new onset of confusion. Patient was noted to having increasing confusion over 48 hours. Patient also was noted to having some visual
hallucinations. Patient have alcohol use disorder and drinks 2-3 beers daily on average. Patient was admitted for further evaluation with initial CT head in ER showing old CVA and encephalomalacia. Clinically patient was diagnosed to have
Warnicke's encephalopathy and was started on high-dose of IV thiamine. Patient had slow improvement in mentation. At admission patient was also noted to be having hyponatremia and Hypoglycemia. Hyponatremia was felt to be related to low solute
intake and possible ADH excess. Patient was started on fluid restriction. TSH/random cortisol were within normal limit. Nephrology was involved in care and following during this hospitalization. After normalization of sodium patient recommended
to continue follow-up with primary care physician for periodic lab work. Patient also had severe protein calorie malnutrition and was encouraged to increase oral intake. Patient had CT chest abdomen pelvis which ruled out any malignancy. PEG tube
was discussed although patient declined. Patient at discharge recommended to continue taking Ensure with meals to increase protein/calorie intake. Patient was discharged home, home health was planned to be arranged although patient does not have a
primary care physician and is planning to be seen by 1 in 2 weeks.
Important imaging findings :
None
Procedure findings :
None
Discharge Plan
-
Patient Disposition: Home (Routine Discharge)
Discharge Diagnosis/Procedures: Alcohol use disorder, Hyponatremia, Wernicke's encephalopathy, Protein calorie malnutrition
Condition: Fair
Diet: Regular
Additional Diets: Please consume Ensure Protein shake or Pudding with meal.
Activity: As tolerated
Driving Restrictions: No driving
Bathing Restrictions: OK to Shower
Activity Restrictions/Additional Instructions:
CTAP
IMPRESSION:
Ovoid calcified soft tissue mass between the left scapular coracoid process and clavicle could represent dystrophic ossification along the course of the coracoclavicular ligament, possibly related to remote trauma or repetitive microtrauma, or
perhaps soft tissue chondroma.
No suspicious osteolytic or blastic lesion.
Mucous plugging in the left lower lobe. Minor patchy parenchymal opacity in the left lower lobe, related to atelectasis as a result of mucous plugging, or underlying infectious bronchiolitis.
Minor focus of subtle bronchiolitis in the central right lower lobe.
No focal dense consolidation.
Mild emphysematous lung changes. 1.5 mm nodule in the anterolateral left upper lobe. Consider follow-up in one year.
No obstructive uropathy. Renal cysts. Left renal small benign angiomyolipoma. Probable small complex left renal cyst (hemorrhagic or proteinaceous). Small solid mass not entirely excluded. Initial step for further evaluation may be considered with
ultrasound.
Moderate to advanced sigmoid diverticulosis. No diverticulitis.
Avoid alcohol
Outpatient urology follow up for renal cyst
Outpatient PCP follow up
Outpatient psych follow up
Outpatient pulmonary follow up for pulmonary function testing, CT demonstrating emphysematous changes
Outpatient cbc and bmp in 1week with PCP
Repeat CT chest with in 1 year due to pulm nodule
Referrals:
Owen Powell MD [Active] - (follow up for weight issues, consider colonoscopy for screening. Avoid all ETOH. Calll 1 week to review celiac testing)
eNreida Berry MD [Active] - 03/30/24
Prescriptions:
New
thiamine HCl (vitamin B1) 100 mg Tablet
100 mg PO DAILY 30 Days Qty: 30 1RF
mirtazapine 15 mg Tablet
15 mg PO HS 30 Days Qty: 30 1RF
folic acid 1 mg Tablet
1 mg PO DAILY 30 Days Qty: 30 0RF
Combivent Respimat 20-100 mcg/actuation mist
1 puff inhalation Q6H 30 Days Qty: 4 0RF
Discharge Orders:
Discharge Patient (As Directed); Ordered 03/16/24
Ordered By: Joaquin Coe
Discharge Date and Time
Discharge Date/Time: 03/16/24 13:46
Print Language: GREEK
[2024-03-17 11:28] LABS: tTG IgA Antibody 14.1 EU/ml (0-19); tTG IgG Antibody 10.5 EU/ml (0-19)
[2024-03-17 23:36] LABS: IgA 324 mg/dl (70-400)
== END 2024-03-16 13:46 | disposition home or self-care (01) | DRG 643 ==
LOC: 4 WEST ACU 22:57
PROVIDERS: Hospitalist; Internal Medicine Gastroenterology; Nurse Practitioner Family; Physician Assistant; ADMITTING PHYSICIAN Hospitalist; ATTENDING PHYSICIAN Hospitalist; CONSULT PHYSICIAN Internal Medicine Endocrinology, Diabetes & Metabolism; CONSULT PHYSICIAN Psychiatry & Neurology Psychiatry; CONSULT PHYSICIAN Specialist; EMERGENCY PHYSICIAN Emergency Medicine
DX: E22.2 Syndrome of inappropriate secretion of antidiuretic hormone (principal); E43 Unspecified severe protein-calorie malnutrition; E51.2 Wernicke's encephalopathy; Z68.1 Body mass index [BMI] 19.9 or less, adult; R64 Cachexia; L89.322 Pressure ulcer of left buttock, stage 2; E88.09 Other disorders of plasma-protein metabolism, not elsewhere classified; F17.210 Nicotine dependence, cigarettes, uncomplicated; F10.20 Alcohol dependence, uncomplicated; E86.0 Dehydration; E16.2 Hypoglycemia, unspecified; K70.10 Alcoholic hepatitis without ascites; E87.6 Hypokalemia; F32.A Depression, unspecified; N28.1 Cyst of kidney, acquired; K57.30 Diverticulosis of large intestine without perforation or abscess without bleeding; K59.09 Other constipation; Z92.21 Personal history of antineoplastic chemotherapy; Z90.11 Acquired absence of right breast and nipple; Z85.3 Personal history of malignant neoplasm of breast
CPT/HCPCS: 70450; 71046; 71260; 74177; 80048; 80053; 80306; 81003; 81015; 82010; 82077; 82140; 82248; 82533; 82607; 82728; 82746; 82784; 82962; 82977; 83516; 83540; 83550; 83735; 83930; 83935; 84100; 84300; 84443; 85025; 85027; 85610; 85730; 86231; 86704; 86705; 86709; 86803; 87086; 93005; 96360; 96361; 97116; 97162; 97166; 97530; 97535; 99285; 99406; Q9967

== ENCOUNTER 2024-04-26 14:48 | Inpatient (IN) | payer MEDICARE, SELFPAY ==
[2024-04-26] VITALS (13 sets, daily range): BP systolic 111–169; BP diastolic 51–91; BMI 18.8
--- NOTE | 2024-04-26 10:30 | EDRN ---
Pt arrived w/ dirty clothes and hair unkempt as well as very dirty skin. All fingernails appear to have stool imbedded in them and very dirty. Pt has poop stains on shirt and pants. Pt had her bra stuffed w/multiple kleenex. Pt was given a box of
kleenex upon her request and started dabbing her nose and putting more and more kleenex into her bra on arrival. Pt had jacey 50 kleenexes in her bra. Pt is very thin and cachectic looking. Pt has a pony tail in her hair and 10 barrettes in her hair
at varying angles. Son reports pt will not shower and pt has been going around house cleaning it then repeating this routine multiple times throughout the day. Pt also has not eaten for 2 days prior to arrival. 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 Pt upon arrival is argumenative and has asked to go to BR 15 times in past 15 minutes. pt informed no but repetitively asking to go. Pt was taken to BR and did not void but had spot of
stool that was saved for a specimen. Pt's son states pt is not clean at home and going to BR non-stop urine and poop and inc of poop in the BR and the house. Pt refuses to go to MD office and family is using MD via phone and house visits.
--- NOTE | 2024-04-26 10:45 | ED.GENMED ---
History of Present Illness
General
Chief Complaint: Abdominal Symptoms
Time Seen by Provider: 04/26/24 10:26
History of Present Illness
History of Present Illness:
5-year-old female presents to the emergency department for ration of altered mental status. According to her son she has been ambulating about the house frantically frequently visiting the bathroom over the past several days. She also appears to
be acutely confused off her baseline. 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 Per the son she is no longer drinking alcohol. Resides with her
but he is unable to take care of her at this point.
Review of Systems
Review of Systems
Allergies reviewed?: Yes
All Other Systems: ROS reviewed and negative except as documented in HPI and ROS
Phy Exam
Physical Exam
Physical Exam:
GEN: Acutely well-appearing but thin and frail, disheveled
Eyes: PERRLA, EOMs intact, no scleral icterus
HENT: NCAT, oral mucosa moist
Lungs: CTAB, no wheezes, rales, rhonchi, normal chest wall excursion
Cardiac: RRR, no M/R/G, no peripheral edema. Radial pulses 2+ bilat
Abdomen: S, NT, ND, NABS, no masses or hepatosplenomegaly
Neuro: Alert, follows commands but appears quite anxious pacing about the room, confused to time and events
MSK: No gross deformity or ecchymosis. No edema. No digital clubbing
Skin: No rashes, petechiae. Normal color, no pallor or jaundice.
Psych: Anxious, easily redirected, disheveled
Course
Orders/Labs/Results
Orders:
Orders
04/26/24 10:44
CT Head W/o Iv Contrast Urgent
Comment:
Reason For Exam: altered mental status
04/26/24 11:39
Complete Blood Count/With Diff Urgent
Comprehensive Metabolic Panel Urgent
Serum Osmolality Urgent
04/26/24 12:46
Norovirus by PCR Urgent
MICHAEL Source: Feces/Stool
Specimen Description:
Date Specimen was Collected: 04/26/24
Time Specimen was Collected: 12:41
Stool Culture Urgent
MICHAEL Source: Feces/Stool
Specimen Description:
Date Specimen was Collected: 04/26/24
Time Specimen was Collected: 12:41
04/26/24 13:13
Urinalysis Reflex To Culture Urgent
Date Specimen was Collected: 04/26/24
Time Specimen was Collected: 13:06
Urine Sodium Urgent
Date Specimen was Collected: 04/26/24
Time Specimen was Collected: 13:06
04/26/24 13:53
Speech Screening from Li Routine
04/26/24 14:02
CDIFF [C difficile Antigen & Toxins] Routine
MICHAEL Source: Feces/Stool
Specimen Description:
04/26/24 14:05
Admit/Transfer Patient As Directed
Co-Sign Provider:
Level of Care: Inpatient admission
Assign to:: Medical/Surgical
Physician / Group: Gail
Diagnosis: Dementia, altered MS
Reason for Hospitalization: Above
Expected length of stay greater than two midnights?: Yes
ELOS- Estimated Length of Stay in days: 2
I certify the patient meets the requirements for IP care: Yes
04/26/24 14:06
PRN Pain Medication Management As Directed
May give lesser potent ordered pain med per pt: Yes
preference::
Protocol:: Medication orders for pain may be administered in a
manner that supports deferring to patient preference
when the pt is:
- Requesting an ordered lesser potent pain medication.
Least to most potent pain medications are defined
as: acetaminophen < NSAID < tramadol < opioids
(morphine, oxycodone, hydromorphone).
- Requesting a lesser dose of the same medication IF
ORDERED.
- Requesting a less intrusive route of administration
if both routes are prescribed by the provider (PO <
IV).
04/26/24 14:07
Code Status As Directed
Resuscitation Status: Full Code
Abnormal Lab Results
04/26/24 04/26/24
11:39 13:13
RBC 3.56 L 10^6/uL
(4.20-5.40)
Hgb 11.2 L g/dL
(12.0-16.0)
Hct 32.8 L %
(37.0-47.0)
MCH 31.5 H pg
(27.0-31.0)
Absolute Neuts (auto) 8.1 H 10^3/uL
(1.4-6.5)
Absolute Lymphs (auto) 1.1 L 10^3/uL
(1.2-3.4)
Absolute Monos (auto) 0.9 H 10^3/uL
(0.1-0.6)
Neutrophils % 79.5 H %
(42.2-75.2)
Lymphocytes % 10.7 L %
(20.5-51.1)
Sodium 127 L mmol/L
(135-145)
Chloride 93 L mmol/L
(98-107)
Serum Osmolality 266 L mOsm/kg
(275-300)
Total Protein 6.1 L g/dl
(6.3-8.2)
Urine Sodium 6 L mmol/L
(30-90)
04/26/24 11:39
04/26/24 11:39
Vital Signs
Initial and Last Documented VS:
Initial Vital Signs
Temp Pulse Resp Pulse Ox
98.5 F 92 16 100
04/26/24 10:29 04/26/24 10:29 04/26/24 10:29 04/26/24 10:29
Last Documented Vital Signs
Temp Pulse Resp BP Pulse Ox
98.5 F 71 13 143/71 100
04/26/24 10:29 04/26/24 15:00 04/26/24 15:00 04/26/24 15:00 04/26/24 12:04
MDM/Problems Addressed
MDM/Problems Addressed:
Patient is clearly altered, low sodium may be playing a role however cannot discount the potential role of gradual cognitive decline at this time. Will admit to the hospitalist service for further management
*Critical Care Note
Total Time (30-74mins, 75-104mins- exclusive of procedures): Not Applicable
ED Attending Note
-
Portions of this chart may have been created with voice recognition software.� Occasional wrong word or��sound alike� substitutions may have occurred due to the inherent limitations of voice recognition software.
Discharge Plan
Departure
Patient Disposition: Admit
Date of Disposition: 04/26/24
Time of Disposition: 13:30
Admit to: Med/Surg
Presentation/result/management discussed w/ accepting MD/DO: Hospitalist
Discharge Problem:
Acute encephalopathy, Acute hyponatremia
Interventions
Interventions:
*Risk Screen - Suicide Last Done: 04/26/24 10:29
*General Assessment Last Done: 04/26/24 10:29
*Neglect/Abuse Screening Last Done: 04/26/24 14:00
ED- Fall Risk Assessment Last Done: 04/26/24 10:29
*ED COVID-19 Vaccine History Last Done: 04/26/24 10:47
BK-Qamigk-Btsrbockfs Assessment Last Done: 04/26/24 11:58
ED- Cardiac Assessment Last Done: 04/26/24 11:58
ED- Neurological Assessment Last Done: 04/26/24 11:58
ED- Pulmonary Assessment Last Done: 04/26/24 11:58
ED Swallowing Screen Last Done: 04/26/24 12:30
[2024-04-26 11:47] LABS: % Basophils 0.2 % (0-2); % Eosinophils 0.2 % (0-6); % Immature Granulocytes 0.3 % (0-0.5); % Lymphocytes 10.7 % (20.5-51.1); % Monocytes 9.1 % (1.7-9.3); % Neutrophils 79.5 % (42.2-75.2); Absolute Lymphocytes 1.1 10^3/uL (1.2-3.4); Absolute Monocytes 0.9 10^3/uL (0.1-0.6); Absolute Neutrophils 8.1 10^3/uL (1.4-6.5); Hematocrit 32.8 % (37.0-47.0); Hemoglobin 11.2 g/dL (12.0-16.0); Mean Corp Hgb Conc. 34.1 g/dL (33.0-37.0); Mean Corpuscular Hgb 31.5 pg (27.0-31.0); Mean Corpuscular Volume 92.1 fL (81.0-99.0); Mean Platelet Volume 8.9 fL (7.4-10.4); Nucleated Red Blood Cells % 0 %; Platelet Count 260 10^3/uL (130-400); Red Blood Cell Count 3.56 10^6/uL (4.20-5.40); Red Cell Dist. Width 13.8 % (11.5-14.5); White Blood Cell Count 10.1 10^3/uL (4.8-10.8)
[2024-04-26 12:03] LABS: ALT (SGPT) 18 U/L (0-35); AST (SGOT) 31 U/L (14-36); Albumin 3.6 g/dl (3.5-5.0); Alkaline Phosphatase 77 U/L (38-126); Blood Urea Nitrogen 17 mg/dl (7-17); Calcium 8.8 mg/dl (8.4-10.2); Carbon Dioxide 28 mmol/L (22-30); Chloride 93 mmol/L (98-107); Estimated Creatinine Clearance 57 ml/min; Glucose 96 mg/dl (70-99); Potassium 3.7 mmol/L (3.5-5.1); Sodium 127 mmol/L (135-145); Total Bilirubin 0.7 mg/dl (0.2-1.3); Total Protein 6.1 g/dl (6.3-8.2); eGFR > 60.00
[2024-04-26 12:31] LABS: Osmolality Serum 266 mOsm/kg (275-300)
--- NOTE | 2024-04-26 13:10 | EDRN ---
Unable to get a commode. ED PCT is going to attempt urine spec in BR at this time as pt is incessant about getting OOB to BR to void.
[2024-04-26 13:32] LABS: Urine Albumin Negative (Neg - Trace); Urine Bilirubin Negative (Negative); Urine Character Clear (Clear); Urine Color Yellow; Urine Glucose Negative (Negative); Urine Ketone Negative (Negative); Urine Leukocyte Negative (Negative); Urine Nitrite Negative (Negative); Urine Occult Blood Negative (Negative); Urine Urobilinogen Negative (Neg - 1+)
--- NOTE | 2024-04-26 13:50 | EDRN ---
Dr. Worley in room w/ pt and son at this time.
[2024-04-26 13:53] LABS: Urine Sodium 6 mmol/L (30-90)
--- NOTE | 2024-04-26 14:15 | HPS.HSE ---
Family Physician
-
Family Physician: NOT KNOW UNKNOWN - PT DOES
Chief Complaint
-
Progressive decline of cognitive status.
History of Present Illness
Patient is a 68 years old female who was admitted in February 2024 at that time working diagnosis was progressive dementia with alcohol use disorder and Wernicke's encephalopathy.
According to patient's son who is present at the bedside patient had been progressively declining in terms of her cognitive status, mood mostly disoriented wandering around the house, progressively declining oral intake with poor appetite. She has
been abstinent from alcohol since her previous admission February 2024. Poor historian herself, although per patient's son there was a concern for frequent urination and patient empirically initiated on Bactrim, although she has no fever, urinary
symptoms. She also has a loose stools, although denies abdominal pain nausea and vomiting.
Medical History
Past Medical History
Past Medical History: Reports Cancer (Breast carcinoma status post mastectomy, chemo and radiation treatment.), CVA and Other (Dementia likely vascular type)
Past Surgical History: Reports Other (Mastectomy)
Social History
Tobacco: Non-smoker
Alcohol: Former
Drug: None
Personal:
Living: With Family
Employment: Not Employed
Family History
Family History: Not pertinent
Allergies / Home Medications
Allergies reflects when Allergies were last updated in [facility].
Home Medications with original date entered in [facility]
Allergy/Medication List:
Allergies
Allergy/AdvReac Type Severity Reaction Status Date / Time
No Known Allergies Allergy Unverified 04/26/24 10:28
Home Medications
folic acid 1 mg tablet 1 mg PO DAILY 30 days #30 tabs 03/12/24
mirtazapine 15 mg tablet 15 mg PO HS 30 days #30 tabs 03/12/24
thiamine HCl (vitamin B1) 100 mg tablet 100 mg PO DAILY 30 days #30 tabs 03/12/24
ipratropium 20 mcg-albuterol 100 mcg/actuation mist for inhalation (Combivent Respimat) 1 puff inhalation R DAILY 04/26/24
sulfamethoxazole 800 mg-trimethoprim 160 mg tablet 1 tab PO BID 04/26/24
Review of Systems
-
Unable to obtain full review of systems at this time due to: Dementia
A 12 point ROS was completed and negative except as noted: No
Physical Exam
Vital Signs
Vital Signs
Temp Pulse Resp BP Pulse Ox
98.5 F 71 18 169/85 100
04/26/24 10:29 04/26/24 13:45 04/26/24 13:45 04/26/24 13:00 04/26/24 12:04
Physical Exam
General: Well Developed, Well Nourished and No Apparent Distress
HEENT: NormoCephalic, Moist mucous membranes and Atraumatic
Respiratory: Clear
Cardiac: S1/S2 and Regular Rhythm; No Murmur or Rub
GI: Soft, Non Tender, Non Distended and Normal Bowel Sounds; No Organomegaly
Rectal: Deferred by Provider
Musculoskeletal: No Clubbing, No Cyanosis and No Edema
Skin: No Rash
Neuro: Nonfocal/grossly intact
Laboratory Results
-
04/26/24 11:39
04/26/24 11:39
Laboratory Results
Total Bilirubin 0.7 mg/dl (0.2-1.3) 04/26/24 11:39
AST 31 U/L (14-36) 04/26/24 11:39
ALT 18 U/L (0-35) 04/26/24 11:39
Alkaline Phosphatase 77 U/L (38-126) 04/26/24 11:39
Impression/Plan
-
IMPRESSION:
68 years old female presents with progressively declining cognitive status, poor oral intake
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
Alcohol use disorder recently abstinent from March 11
History of Wernicke encephalopathy
Mild hyponatremia.
Other conditions:
History of breast carcinoma status postmastectomy/chemotherapy/radiation baseline old cerebral infarct
Depression.
PLAN:
Progressive declining with worsening cognitive status, poor oral intake.
Dementia vascular type likely.
CT scan of the head with no acute abnormalities.
Prior CVA with encephalomalacia within the right temporal lobe. Overall chronic changes consistent with small vessel ischemic disease.
Exam with no focal neurologic findings.
Does not appear to be infected, afebrile and nontoxic-appearing.
Recent TSH, B12 all within normal limits
Urinalysis within normal limits.
Sodium 127, although this is most likely not the cause of progressive decline over time.
Case management consultation for placement.
Monitor mental status with hydration.
Check ammonia level.
Mild hyponatremia sodium 127.
Suspect hypovolemia with low oral intake. Mild hypochloremic alkalosis.
Recent TSH within normal limits.
Check urine osmolarity.
Challenge with normal saline and follow BMP.
Protein calorie malnutrition BMI of 18
Continue Remeron
Regular diet with Ensure supplement
Reported loose stools
Will check for C. difficile and norovirus
Full code
DVT prophylaxis heparin
--- NOTE | 2024-04-26 15:11 | EDRN ---
Pt is drinking excessively water one tall glass after another. Pt also asking over and over again to go to BR. Unable to locate a commode and pt would not void w/ purewyck. Pt just had liquid BM inc on floor.
--- NOTE | 2024-04-26 17:22 | EDRN ---
Pt is on the call mari every 15 minutes to go to BR and inc of stool that drips out of her on the floor enroute to BR.
--- NOTE | 2024-04-26 17:25 | EDRN ---
Receptacle placed to get stool sample for C Diff as ordered.
--- NOTE | 2024-04-26 18:40 | PTCARENOTE ---
Received pt from ED via wheelchair. AAOx1-3. Forgetful, confused. Pt ambulated to bed with standby assist. Will inform nightshift RN.
--- NOTE | 2024-04-26 19:42 | PTCARENOTE ---
Addendum entered by Kalyn Segovia RN 04/26/24 20:46:
pt. now on med sitter
Original Note:
Pt. arrived to 3W at change of shift and placed on bed alarm. Pt. states she is anxious and that is what is causing her to need to use the bathroom so frequently. This RN asked why pt felt anxious, pt unable to say. Pt. unable to recall her age or
what year it is, but knows she is at [facility]. Admission and assessment complete, care ongoing.
[2024-04-26] MEDS: VITAMIN B1 100 MG PO (20:06)
[2024-04-26] MEDS: HEPARIN 5000 UNITS SC (20:06)
[2024-04-26] MEDS: FOLVITE 1 MG PO (20:06)
[2024-04-26] MEDS: NSS 1000 IV (20:07)
[2024-04-26 21:17] LABS: Osmolality Urine 74 mOsm/kg (300-900)
[2024-04-26] MEDS: REMERON 15 MG PO (23:18)
[2024-04-27 00:36] LABS: Ammonia < 9 umol/L (9-30)
[2024-04-27] MEDS: NSS 1000 IV (06:08)
[2024-04-27 06:44] LABS: Blood Urea Nitrogen 6 mg/dl (7-17); Calcium 7.8 mg/dl (8.4-10.2); Carbon Dioxide 25 mmol/L (22-30); Chloride 102 mmol/L (98-107); Estimated Creatinine Clearance 66 ml/min; Glucose 66 mg/dl (70-99); Potassium 3.3 mmol/L (3.5-5.1); Sodium 134 mmol/L (135-145); eGFR > 60.00
[2024-04-27] MEDS: SPIRIVA RESPIMAT 2.5 MCG 2 PUFF INH (07:15)
[2024-04-27] MEDS: ProAIR HFA INHALER 1 PUFF INH (07:15)
[2024-04-27 07:32] VITALS: BP 118/52
[2024-04-27] MEDS: VITAMIN B1 100 MG PO (08:04)
[2024-04-27] MEDS: HEPARIN 5000 UNITS SC ×2 (08:05→21:23)
[2024-04-27] MEDS: FOLVITE 1 MG PO (08:05)
--- NOTE | 2024-04-27 13:10 | CM ---
CM met with pt and son/Kwame Pierson bedside ([phone])
Pt did not participate in meeting
Pt with worsening dementia and resides with spouse in 2 with 3 [address], full flight to 2nd floor
Pt is independent with ambulation with no ADs
Pt requesting coaxing and cueing to complete bathing tasks, also needs coaxing for eating
Currently, not receptive to coaxing from family for bathing and eating, typically refuses to complete tasks
Pt with no elopement tendencies or aggression, calm and pleasant during meeting in room
Family notes pt refusal to leave home and participate in bathing tasks
PCP- Home visiting PCP arranged- Dr. Coy Seth
Outpt follow up care has been challenging due to pt's refusal to leave home
Family now making arrangements for LTC as spouse can no longer manage pt at home
Son resides in [facility] and dtr in [place]
Notes funds in tact for memory care- multiple tours set up this week
They will be reaching out to an civil litigation attorney for POA vs guardianship paperwork as well
CM provided son with memory care resources, [facility] info as well
Funding reviewed for memory care vs SNF LTC vs CCRCs also reviewed
Awaiting outcome of PT eval to determine if skilled needs on dc
Discharge Disposition- anticipate new admission to memory care
[2024-04-27] MEDS: KCL 40 MEQ PO (13:50)
[2024-04-27 14:24] VITALS: BP 104/69; O2SAT 96
[2024-04-27 14:59] VITALS: BP 106/79
--- NOTE | 2024-04-27 15:11 | W.PN.HOSP.TC ---
Today's Communication/Plan
-
Monitor oral intake.
Follow BMP for recurrent hyponatremia
Long-term placement arrangements.
Assessment / Plan
Assessment / Plan
IMPRESSION:
68 years old female presents with progressively declining cognitive status, poor oral intake
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
Alcohol use disorder recently abstinent from March 11
History of Wernicke encephalopathy
Mild hyponatremia.
Other conditions:
History of breast carcinoma status postmastectomy/chemotherapy/radiation baseline old cerebral infarct
Depression.
PLAN:
Progressive declining with worsening cognitive status, poor oral intake.
Dementia vascular type likely.
CT scan of the head with no acute abnormalities.
Prior CVA with encephalomalacia within the right temporal lobe. Overall chronic changes consistent with small vessel ischemic disease.
Exam with no focal neurologic findings.
Does not appear to be infected, afebrile and nontoxic-appearing.
Recent TSH, B12 all within normal limits
Urinalysis within normal limits.
Sodium 127, although this is most likely not the cause of progressive decline over time.
Case management consultation for placement.
Monitor mental status with hydration.
Check ammonia level.
Mild hyponatremia sodium 127.
Suspect hypovolemia with low oral intake. Mild hypochloremic alkalosis.
Recent TSH within normal limits.
Sodium improved with volume expansion 127�134.
Hypokalemia replete and monitor.
Protein calorie malnutrition BMI of 18
Continue Remeron
Regular diet with Ensure supplement
Reported loose stools
Cultures pending. Monitor output. Negative for norovirus
Full code
DVT prophylaxis heparin
Anticipated Discharge: 24 - 48 hours
Subjective/Interval History
-
Date of Service: April 27, 2024
Objective Data
-
Labs:
Laboratory Results
04/27/24
05:13
Sodium 134 L
Potassium 3.3 L
Chloride 102
Carbon Dioxide 25
BUN 6 L
Creatinine 0.5 L
Glucose 66 L
Calcium 7.8 L
Vital Signs:
Vital Signs
Temp Pulse Resp BP Pulse Ox
98.3 F 81 17 106/79 96
04/27/24 14:59 04/27/24 14:59 04/27/24 14:59 04/27/24 14:59 04/27/24 14:59
I&O
04/26/24 04/27/24 04/28/24
06:59 06:59 06:59
Intake Total 480 / 480
Balance 480 / 480
Physical Exam
-
General: Cachectic
HEENT: Negative Oxygen
Respiratory: Clear to Auscultation
Cardiac: Regular Rhythm and S1/S2; Negative Murmur or Rub
GI: Soft, Nontender, Nondistended and Normal Bowel Sounds
Musculoskeletal: No Edema
Neuro: Awake, Alert, Oriented, No Motor Deficits and Nonfocal/Grossly Intact
Psych: Calm
[2024-04-27] MEDS: REMERON 15 MG PO (21:23)
[2024-04-27 23:41] VITALS: BP 116/58
--- NOTE | 2024-04-28 06:18 | PTCARENOTE ---
Pt continues to have repetitive behaviors. Pt is hyper-focused on using the bathroom constantly, however when she sits on the commode she rarely urinates or has a bowel movement. Pt. leaking small amounts of stool across room and on the floor and
is leaving toilet paper she wiped with in various places around the room. Bedside commode provided for patient, however she is forgetful and wanders. Pt. remains on med sitter.
[2024-04-28 06:57] LABS: Blood Urea Nitrogen 8 mg/dl (7-17); Calcium 8.1 mg/dl (8.4-10.2); Carbon Dioxide 27 mmol/L (22-30); Chloride 105 mmol/L (98-107); Estimated Creatinine Clearance 66 ml/min; Glucose 98 mg/dl (70-99); Potassium 3.6 mmol/L (3.5-5.1); Sodium 135 mmol/L (135-145); eGFR > 60.00
[2024-04-28 08:18] VITALS: BP 145/68
[2024-04-28] MEDS: SPIRIVA RESPIMAT 2.5 MCG 2 PUFF INH (08:31)
[2024-04-28] MEDS: ProAIR HFA INHALER 1 PUFF INH (08:31)
[2024-04-28] MEDS: VITAMIN B1 100 MG PO (09:09)
[2024-04-28] MEDS: HEPARIN 5000 UNITS SC ×2 (09:10→21:02)
[2024-04-28] MEDS: FOLVITE 1 MG PO (09:10)
--- NOTE | 2024-04-28 10:04 | CM ---
Addendum entered by Ekaterina Wilson RN 04/28/24 15:11:
Received message from [facility] for clinicals to be faxed to ([phone]).
Original Note:
Reviewed the chart notes and spoke with the patient at the bedside. Patient confused. Medsitter in place. Per notes, family looking for placement and will be touring various facilities in the area. CM continues to be available to patient/family
and is monitoring medical plan for needs at discharge.
Plan: Discharge to a facility once bed secured.
[2024-04-28 15:00] VITALS: BP 105/59
--- NOTE | 2024-04-28 15:29 | W.PN.HOSP.TC ---
Today's Communication/Plan
-
Continue supportive care.
Monitor oral intake.
Pending placement.
Medically optimized for discharge.
Assessment / Plan
Assessment / Plan
IMPRESSION:
68 years old female presents with progressively declining cognitive status, poor oral intake
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
Alcohol use disorder recently abstinent from March 11
History of Wernicke encephalopathy
Mild hyponatremia.
Other conditions:
History of breast carcinoma status postmastectomy/chemotherapy/radiation baseline old cerebral infarct
Depression.
PLAN:
Progressive declining with worsening cognitive status, poor oral intake.
Dementia vascular type likely.
CT scan of the head with no acute abnormalities.
Prior CVA with encephalomalacia within the right temporal lobe. Overall chronic changes consistent with small vessel ischemic disease.
Exam with no focal neurologic findings.
Does not appear to be infected, afebrile and nontoxic-appearing.
Recent TSH, B12 all within normal limits
Urinalysis within normal limits.
Sodium 127, although this is most likely not the cause of progressive decline over time.
Case management consultation for placement.
Monitor mental status with hydration.
Mild hyponatremia sodium 127.
Suspect hypovolemia with low oral intake. Mild hypochloremic alkalosis.
Recent TSH within normal limits.
Sodium improved with volume expansion 127�134.
Hypokalemia replete and monitor.
Protein calorie malnutrition BMI of 18
Continue Remeron
Regular diet with Ensure supplement
Reported loose stools
Cultures pending. Monitor output. Negative for norovirus
Full code
DVT prophylaxis heparin
Anticipated Discharge: 24 - 48 hours
Subjective/Interval History
-
Date of Service: April 28, 2024
Objective Data
-
Labs:
Laboratory Results
04/28/24
05:59
Sodium 135
Potassium 3.6
Chloride 105
Carbon Dioxide 27
BUN 8
Creatinine 0.4 L
Glucose 98
Calcium 8.1 L
Vital Signs:
Vital Signs
Temp Pulse Resp BP Pulse Ox
97.5 F 79 16 145/68 92
04/28/24 08:18 04/28/24 08:18 04/28/24 08:18 04/28/24 08:18 04/28/24 08:18
I&O
04/27/24 04/28/24 04/29/24
06:59 06:59 06:59
Intake Total 480 / 480 2170 / 2170
Balance 480 / 480 2170 / 2170
Physical Exam
-
General: Cachectic
HEENT: Negative Oxygen
Respiratory: Clear to Auscultation
Cardiac: Regular Rhythm and S1/S2; Negative Murmur or Rub
GI: Soft, Nontender, Nondistended and Normal Bowel Sounds
Musculoskeletal: No Edema
Neuro: Awake, Alert, Oriented, No Motor Deficits and Nonfocal/Grossly Intact
Psych: Calm
[2024-04-28] MEDS: REMERON 15 MG PO (21:02)
[2024-04-28 23:55] VITALS: BP 123/79
--- NOTE | 2024-04-29 03:57 | DOWNTIME ---
There was a [facility] Client Registered Nurse Midwife Downtime on 04/29/2024 from 0200 to 04/29/2024 at 0325 . Downtime documentation of patient's care, including medication administrations, has been reconciled in the electronic record per guidelines. Refer to the
patient's paper chart under the miscellaneous tab to see printed paper medication records and downtime forms.
--- NOTE | 2024-04-29 05:44 | PTCARENOTE ---
Pt slept well overnight. No issues to report. Will continue to monitor.
[2024-04-29] MEDS: SPIRIVA RESPIMAT 2.5 MCG 2 PUFF INH (07:47)
[2024-04-29] MEDS: ProAIR HFA INHALER 1 PUFF INH (07:48)
[2024-04-29 08:07] VITALS: BP 140/69
[2024-04-29] MEDS: HEPARIN 5000 UNITS SC ×2 (09:04→20:12)
[2024-04-29] MEDS: VITAMIN B1 100 MG PO (09:05)
[2024-04-29] MEDS: FOLVITE 1 MG PO (09:05)
--- NOTE | 2024-04-29 13:37 | PN.CDI ---
CDI
- -
CDI:
Physician Documentation Request
Admit Date: 04/26/24 14:48
Dear Doctor Gail,
Patient presented to emergency department for altered mental status. ' According to her son she has been ambulating about the house frantically frequently visiting the bathroom over the past several days. She also appears to be acutely confused off
her baseline'
04/26 ED nursing note 'Pt is drinking excessively water one tall glass after another. Pt also asking over and over again to go to [facility]....Pt is on the call mari every 15 minutes to go to [facility] '
Also noted by another nurse ' Pt. states she is anxious....This RN asked why pt felt anxious, pt unable to say'
04/28 Nursing note 'Pt continues to have repetitive behaviors....she is forgetful and wanders. Pt. remains on med sitter'
Please further specify any associated manifestations of dementia:
Associated Manifestations
Dementia without behavioral disturbance
Dementia with behavioral disturbances
- Agitation
- Combative behavior
- Violent behavior
Dementia with Anxiety
Dementia with delirium
- Confusion
- Sundowning
Dementia with wandering
Other, please specify
No associated manifestations
Use of terms such as suspected, likely, concern for, or probable (associated with a specific diagnosis that is being evaluated, monitored, or treated as if it exists) are acceptable and can be coded in the inpatient setting, when documented at the
time of discharge.
Thank you,
Mariola Marx RN, BSN
CDI Specialist
tiger text
Please use your independent medical judgment in providing your response.
--- NOTE | 2024-04-29 13:47 | PN.CDI ---
CDI
- -
CDI:
Physician Documentation Request
Admit Date: 04/26/24 14:48
Dear Doctor Gail,
Hospitalist progress notes state 'Protein calorie malnutrition BMI of 18'
To ensure the quality of the medical record, based on the above information and the recognized standards for malnutrition , could you please verify in your progress notes which of the following responses best reflects the patient's nutritional
status:
(Specify severity) Malnutrition is/was present and is a clinical diagnosis (please provide additional support in the medical record)
No nutritional deficiency
Other (please specify)
[place] Criteria ([facility] Hospitalist 2017)
2 or more criteria must be present for either
non severe or severe malnutrition
Note that the criteria differs related to the
presence of an acute or chronic illness
Acute Illness Chronic Illness
Energy Intake Non Severe: <75% for >7 days Non Severe: <75% for >1 month
Severe: <50% for >5 days Severe: <75% for >1 month
Weight Loss Non Severe: 1-2% over 1 week Non Severe: 5% over 1 month
5% over 1 month 7.5% over 3 months
7.5% over 3 months 10% over 6 months
1 year N/A 20% over 1 year
Severe: >2% over 1 week Severe: >5% over 1 month
>5% over 1 month >7.5% over 3 months
>7.5% over 3 months >10% over 6 months
1 year N/A >20% over 1 year
Body Fat Non Severe: Mild Decrease Non Severe: Mild Loss
Severe: Moderate Decrease Severe: Severe Loss
Muscle Mass Non Severe: Mild Decrease Non Severe: Mild Loss
Severe: Moderate Decrease Severe: Severe Loss
Fluid Accumulation Non Severe: Mild Accumulation Non Severe: Mild Accumulation
Severe: Moderate to severe Severe: Moderate to severe
accumulation accumulation
Reduced Peace Officer Strength Non Severe: N/A Non Severe: N/A
Severe: Measurably reduced Severe: Measurably reduced
Use of terms such as suspected, likely, concern for, or probable (associated with a specific diagnosis that is being evaluated, monitored, or treated as if it exists) are acceptable and can be coded in the inpatient setting, when documented at the
time of discharge.
Thank you,
Mariola Marx RN, BSN
CDI Specialist
tiger text
Please use your independent medical judgment in providing your response.
--- NOTE | 2024-04-29 15:04 | W.PN.HOSP.TC ---
Today's Communication/Plan
-
Placement pending family decision and bed availability.
Assessment / Plan
Assessment / Plan
IMPRESSION:
68 years old female presents with progressively declining cognitive status, poor oral intake
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
Alcohol use disorder recently abstinent from March 11
History of Wernicke encephalopathy
Mild hyponatremia.
Other conditions:
History of breast carcinoma status postmastectomy/chemotherapy/radiation baseline old cerebral infarct
Depression.
PLAN:
Progressive declining with worsening cognitive status, poor oral intake.
Dementia vascular type likely.
CT scan of the head with no acute abnormalities.
Prior CVA with encephalomalacia within the right temporal lobe. Overall chronic changes consistent with small vessel ischemic disease.
Exam with no focal neurologic findings.
Does not appear to be infected, afebrile and nontoxic-appearing.
Recent TSH, B12 all within normal limits
Urinalysis within normal limits.
Sodium 127, although this is most likely not the cause of progressive decline over time.
Case management consultation for placement.
Monitor mental status with hydration.
Mild hyponatremia sodium 127.
Suspect hypovolemia with low oral intake. Mild hypochloremic alkalosis.
Recent TSH within normal limits.
Sodium improved with volume expansion 127�134.
Hypokalemia replete and monitor.
Protein calorie malnutrition BMI of 18
Continue Remeron
Regular diet with Ensure supplement
Reported loose stools
Cultures pending. Monitor output. Negative for norovirus
Full code
DVT prophylaxis heparin
Anticipated Discharge: Within 24 hours
Subjective/Interval History
-
Date of Service: April 29, 2024
Objective Data
-
Vital Signs:
Vital Signs
Temp Pulse Resp BP Pulse Ox
97.9 F 63 16 140/69 98
04/29/24 08:07 04/29/24 08:07 04/29/24 08:07 04/29/24 08:07 04/29/24 08:07
I&O
04/28/24 04/29/24 04/30/24
06:59 06:59 06:59
Intake Total 2170 / 2170 360 / 360
Balance 2170 / 2170 360 / 360
Physical Exam
-
General: Cachectic
HEENT: Negative Oxygen
Respiratory: Clear to Auscultation
Cardiac: Regular Rhythm and S1/S2; Negative Murmur or Rub
GI: Soft, Nontender, Nondistended and Normal Bowel Sounds
Musculoskeletal: No Edema
Neuro: Awake, Alert, Oriented, No Motor Deficits and Nonfocal/Grossly Intact
Psych: Calm
--- NOTE | 2024-04-29 15:07 | W.DS.TRANS ---
DC Summary - Cover Stripper
-
Discharge Instructions:
Discharge Diagnosis/Procedures Dementia with failure to thrive
Diet Regular
Instructions:
Stand-Alone Forms:
Changes to Home Medications: No
Discharge Medications:
DC Medications w/original date entered in [facility]
folic acid 1 mg tablet 1 mg PO DAILY 30 days #30 tabs 03/12/24
mirtazapine 15 mg tablet 15 mg PO HS 30 days #30 tabs 03/12/24
thiamine HCl (vitamin B1) 100 mg tablet 100 mg PO DAILY 30 days #30 tabs 03/12/24
ipratropium 20 mcg-albuterol 100 mcg/actuation mist for inhalation (Combivent Respimat) 1 puff inhalation R DAILY SOB 04/26/24
Home Medication Changes
Pending Results: No
[2024-04-29 15:24] VITALS: BP 127/59; PULSE 74; O2SAT 98
--- NOTE | 2024-04-29 15:42 | CM ---
Family changed their mind . They do not want to have pt go to [facility]. Michaela at notified.
Spoke with Mary contreras she thiks they want [facility] [place].
Explained that pt is medically ready for dc and to notify CM as soon as possible.
Family requesting ambulance transport.
PLAN To Assisted living / Memory care
[2024-04-29 16:00] VITALS: BP 114/60
[2024-04-29] MEDS: REMERON 15 MG PO (20:13)
[2024-04-29 23:29] VITALS: BP 138/61
[2024-04-30 07:15] VITALS: BP 150/77
[2024-04-30] MEDS: FOLVITE 1 MG PO (07:48)
[2024-04-30] MEDS: HEPARIN 5000 UNITS SC ×2 (07:48→20:26)
[2024-04-30] MEDS: VITAMIN B1 100 MG PO (07:48)
[2024-04-30] MEDS: SPIRIVA RESPIMAT 2.5 MCG 2 PUFF INH (08:20)
[2024-04-30] MEDS: ProAIR HFA INHALER 1 PUFF INH (08:20)
--- NOTE | 2024-04-30 11:02 | CM ---
Addendum entered by Chani Mejia 04/30/24 14:01:
Received a call from Malathi @ [facility];
Facility will accept until Friday

Original Note:
[employer] Worker spoke via phone with patient's daughter, Mary; she reported that [facility] is being considered; call center representative from facility planning to visit patient and assess today
Plan: Discharge to Assisted Living Facility; placement and discharge date to be determined
--- NOTE | 2024-04-30 15:03 | PTCARENOTE ---
1315 Pt moved to the back room 330 for neutropenic precautions. Pt with 1 unit of PRBC infusing. Pt tolerated well. No s/s of adverse effect 15 minutes vitals done and documented in [facility].
[2024-04-30 15:18] VITALS: BP 160/70
--- NOTE | 2024-04-30 15:37 | W.PN.HOSP.TC ---
Today's Communication/Plan
-
Pending placement
Assessment / Plan
Assessment / Plan
IMPRESSION:
68 years old female presents with progressively declining cognitive status, poor oral intake
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
Alcohol use disorder recently abstinent from March 11
History of Wernicke encephalopathy
Mild hyponatremia.
Other conditions:
History of breast carcinoma status postmastectomy/chemotherapy/radiation baseline old cerebral infarct
Depression.
PLAN:
Progressive declining with worsening cognitive status, poor oral intake.
Dementia vascular type likely.
CT scan of the head with no acute abnormalities.
Prior CVA with encephalomalacia within the right temporal lobe. Overall chronic changes consistent with small vessel ischemic disease.
Exam with no focal neurologic findings.
Does not appear to be infected, afebrile and nontoxic-appearing.
Recent TSH, B12 all within normal limits
Urinalysis within normal limits.
Sodium 127, although this is most likely not the cause of progressive decline over time.
Case management consultation for placement.
Monitor mental status with hydration.
Mild hyponatremia sodium 127.
Suspect hypovolemia with low oral intake. Mild hypochloremic alkalosis.
Recent TSH within normal limits.
Sodium improved with volume expansion 127�134.
Hypokalemia replete and monitor.
Protein calorie malnutrition BMI of 18
Continue Remeron
Regular diet with Ensure supplement
Reported loose stools
Cultures pending. Monitor output. Negative for norovirus
Full code
DVT prophylaxis heparin
Anticipated Discharge: 24 - 48 hours
Subjective/Interval History
-
Date of Service: April 30, 2024
Objective Data
-
Vital Signs:
Vital Signs
Temp Pulse Resp BP Pulse Ox
97.5 F 60 18 160/70 99
04/30/24 15:18 04/30/24 15:18 04/30/24 15:18 04/30/24 15:18 04/30/24 15:18
I&O
04/29/24 04/30/24 05/01/24
06:59 06:59 06:59
Intake Total 360 / 360 1440 / 1440
Balance 360 / 360 1440 / 1440
Physical Exam
-
General: Cachectic
HEENT: Negative Oxygen
Respiratory: Clear to Auscultation
Cardiac: Regular Rhythm and S1/S2; Negative Murmur or Rub
GI: Soft, Nontender, Nondistended and Normal Bowel Sounds
Musculoskeletal: No Edema
Neuro: Awake, Alert, Oriented, No Motor Deficits and Nonfocal/Grossly Intact
Psych: Calm
[2024-04-30] MEDS: REMERON 15 MG PO (21:49)
[2024-05-01 00:05] VITALS: BP 104/51
[2024-05-01] MEDS: SPIRIVA RESPIMAT 2.5 MCG 2 PUFF INH (07:40)
[2024-05-01 08:00] VITALS: BP 136/69
[2024-05-01] MEDS: VITAMIN B1 100 MG PO (09:21)
[2024-05-01] MEDS: HEPARIN 5000 UNITS SC ×2 (09:22→19:57)
[2024-05-01] MEDS: FOLVITE 1 MG PO (09:22)
[2024-05-01 11:29] LABS: Blood Urea Nitrogen 7 mg/dl (7-17); Calcium 8.4 mg/dl (8.4-10.2); Carbon Dioxide 31 mmol/L (22-30); Chloride 95 mmol/L (98-107); Estimated Creatinine Clearance 66 ml/min; Glucose 117 mg/dl (70-99); Potassium 3.2 mmol/L (3.5-5.1); Sodium 134 mmol/L (135-145); eGFR > 60.00
--- NOTE | 2024-05-01 12:54 | W.PN.HOSP.TC ---
Today's Communication/Plan
-
Placement
Assessment / Plan
Assessment / Plan
IMPRESSION:
68 years old female presents with progressively declining cognitive status, poor oral intake
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
Alcohol use disorder recently abstinent from March 11
History of Wernicke encephalopathy
Mild hyponatremia.
Mild hypokalemia
Other conditions:
History of breast carcinoma status postmastectomy/chemotherapy/radiation baseline old cerebral infarct
Depression.
PLAN:
Progressive declining with worsening cognitive status, poor oral intake.
Dementia vascular type likely.
CT scan of the head with no acute abnormalities.
Prior CVA with encephalomalacia within the right temporal lobe. Overall chronic changes consistent with small vessel ischemic disease.
Exam with no focal neurologic findings.
Does not appear to be infected, afebrile and nontoxic-appearing.
Recent TSH, B12 all within normal limits
Urinalysis within normal limits.
Sodium 127, although this is most likely not the cause of progressive decline over time.
Case management consultation for placement.
Monitor mental status with hydration.
Mild hyponatremia sodium 127.
Suspect hypovolemia with low oral intake. Mild hypochloremic alkalosis.
Recent TSH within normal limits.
Sodium improved with volume expansion 127�134.
Hypokalemia replete and monitor.
Protein calorie malnutrition BMI of 18
Continue Remeron
Regular diet with Ensure supplement
Reported loose stools
Cultures pending. Monitor output. Negative for norovirus
Full code
DVT prophylaxis heparin
Anticipated Discharge: 24 - 48 hours
Subjective/Interval History
-
Date of Service: May 01, 2024
Objective Data
-
Labs:
Laboratory Results
05/01/24
10:58
Sodium 134 L
Potassium 3.2 L
Chloride 95 L
Carbon Dioxide 31 H
BUN 7
Creatinine 0.5 L
Glucose 117 H
Calcium 8.4
Vital Signs:
Vital Signs
Temp Pulse Resp BP Pulse Ox
98.1 F 64 16 136/69 97
05/01/24 08:00 05/01/24 10:10 05/01/24 10:10 05/01/24 08:00 05/01/24 10:10
I&O
04/30/24 05/01/24 05/02/24
06:59 06:59 06:59
Intake Total 1440 / 1440 2200 / 2200
Balance 1440 / 1440 2200 / 2200
Physical Exam
-
General: Cachectic
HEENT: Negative Oxygen
Respiratory: Clear to Auscultation
Cardiac: Regular Rhythm and S1/S2; Negative Murmur or Rub
GI: Soft, Nontender, Nondistended and Normal Bowel Sounds
Musculoskeletal: No Edema
Neuro: Awake, Alert, Oriented, No Motor Deficits and Nonfocal/Grossly Intact
Psych: Calm
[2024-05-01] MEDS: KCL 40 MEQ PO (13:48)
[2024-05-01 16:00] VITALS: BP 147/82
[2024-05-01] MEDS: REMERON 15 MG PO (21:30)
[2024-05-01 23:35] VITALS: BP 140/68
[2024-05-02 07:47] VITALS: BP 122/56
[2024-05-02] MEDS: SPIRIVA RESPIMAT 2.5 MCG 2 PUFF INH (07:48)
[2024-05-02] MEDS: HEPARIN 5000 UNITS SC ×2 (08:03→19:58)
[2024-05-02] MEDS: FOLVITE 1 MG PO (08:03)
[2024-05-02] MEDS: VITAMIN B1 100 MG PO (08:03)
--- NOTE | 2024-05-02 13:42 | W.PN.HOSP.TC ---
Today's Communication/Plan
-
Pending placement
Assessment / Plan
Assessment / Plan
IMPRESSION:
68 years old female presents with progressively declining cognitive status, poor oral intake
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
Alcohol use disorder recently abstinent from March 11
History of Wernicke encephalopathy
Mild hyponatremia.
Mild hypokalemia
Other conditions:
History of breast carcinoma status postmastectomy/chemotherapy/radiation baseline old cerebral infarct
Depression.
PLAN:
Progressive declining with worsening cognitive status, poor oral intake.
Dementia vascular type likely.
CT scan of the head with no acute abnormalities.
Prior CVA with encephalomalacia within the right temporal lobe. Overall chronic changes consistent with small vessel ischemic disease.
Exam with no focal neurologic findings.
Does not appear to be infected, afebrile and nontoxic-appearing.
Recent TSH, B12 all within normal limits
Urinalysis within normal limits.
Sodium 127, although this is most likely not the cause of progressive decline over time.
Case management consultation for placement.
Monitor mental status with hydration.
Mild hyponatremia sodium 127.
Suspect hypovolemia with low oral intake. Mild hypochloremic alkalosis.
Recent TSH within normal limits.
Sodium improved with volume expansion 127�134.
Hypokalemia replete and monitor.
Protein calorie malnutrition BMI of 18
Continue Remeron
Regular diet with Ensure supplement
Reported loose stools
Cultures pending. Monitor output. Negative for norovirus
Full code
DVT prophylaxis heparin
Anticipated Discharge: Within 24 hours
Subjective/Interval History
-
Date of Service: May 02, 2024
Objective Data
-
Vital Signs:
Vital Signs
Temp Pulse Resp BP Pulse Ox
97.9 F 66 16 122/56 98
05/02/24 07:47 05/02/24 07:50 05/02/24 07:50 05/02/24 07:47 05/02/24 07:50
I&O
05/01/24 05/02/24 05/03/24
06:59 06:59 06:59
Intake Total 2200 / 2200 960 / 960
Balance 2200 / 2200 960 / 960
Physical Exam
-
General: Cachectic
HEENT: Negative Oxygen
Respiratory: Clear to Auscultation
Cardiac: Regular Rhythm and S1/S2; Negative Murmur or Rub
GI: Soft, Nontender, Nondistended and Normal Bowel Sounds
Musculoskeletal: No Edema
Neuro: Awake, Alert, Oriented, No Motor Deficits and Nonfocal/Grossly Intact
Psych: Calm
[2024-05-02 15:24] VITALS: BP 139/72
[2024-05-02] MEDS: REMERON 15 MG PO (21:49)
[2024-05-02 23:08] VITALS: BP 135/74
[2024-05-03] MEDS: SPIRIVA RESPIMAT 2.5 MCG 2 PUFF INH (07:24)
[2024-05-03 07:47] VITALS: BP 115/59
[2024-05-03] MEDS: VITAMIN B1 100 MG PO (08:26)
[2024-05-03] MEDS: HEPARIN 5000 UNITS SC (08:26)
[2024-05-03] MEDS: FOLVITE 1 MG PO (08:26)
--- NOTE | 2024-05-03 09:39 | W.DS.TRANS ---
DC Summary - Health Companion
-
Discharge Instructions:
Discharge Diagnosis/Procedures Dementia with failure to thrive
Diet Regular
Instructions:
Stand-Alone Forms:
Changes to Home Medications: No
Discharge Medications:
DC Medications w/original date entered in [employer]
folic acid 1 mg tablet 1 mg PO DAILY 30 days #30 tabs 03/12/24
mirtazapine 15 mg tablet 15 mg PO HS 30 days #30 tabs 03/12/24
thiamine HCl (vitamin B1) 100 mg tablet 100 mg PO DAILY 30 days #30 tabs 03/12/24
ipratropium 20 mcg-albuterol 100 mcg/actuation mist for inhalation (Combivent Respimat) 1 puff inhalation R DAILY SOB 04/26/24
Home Medication Changes
Pending Results: No
--- NOTE | 2024-05-03 09:49 | CM ---
CM following re: discharge planning.
Reviewed pt's chart, met with pt, spoke to pt's Juno, daughter Mary and Kylahmisbah Samuel to update on discharge plan progress.
Discharge order noted. Both pt's daughter and pt's Juno are aware, expressed their agreement and they stated that [facility] accepted the pt and they will transport the pt at discharge. IMM reviewed, placed on chart, pt has a
copy.
Requested DME form completed, signed by MD and provided to [facility] staff with discharge package.
CM spoke to Kylahmisbah Samuel and she confirmed that pt is accepted for admission to [facility] memory care unit and [facility] will provide w/c van to transport the pt at 11:[address] a[address]
[facility] nursing report [phone], ask LUIZA Samuel
Discharge instructions fax: [phone]
D/C plan: [facility] memory care.
--- NOTE | 2024-05-03 12:20 | PN.CDI ---
CDI
- -
CDI:
Physician Documentation Request
Admit Date: 04/26/24 14:48
Dear Doctor Gail,
Patient presented to ED for evaluation for altered mental status. Discharge problem from ED noted to be ' Acute encephalopathy...'
Patient has known dementia suspected vascular type.
After careful study, please clarify the following:
____ - Acute encephalopathy is a valid diagnosis - please specify type toxic, metabolic, etc.
____ - Acute encephalopathy is not a valid diagnosis.
____ - Other
Use of terms such as suspected, likely, concern for, or probable (associated with a specific diagnosis that is being evaluated, monitored, or treated as if it exists) are acceptable and can be coded in the inpatient setting, when documented at the
time of discharge.
Thank you,
Mariola Marx RN, BSN
CDI Specialist
tiger text
Please use your independent medical judgment in providing your response.
[2024-05-03 12:53] VITALS: BP 148/98
== END 2024-05-03 14:15 | DRG 641 ==
LOC: 3 WEST ACU 14:48
PROVIDERS: Physician Assistant; ADMITTING PHYSICIAN Internal Medicine; EMERGENCY PHYSICIAN Emergency Medicine
DX: E87.1 Hypo-osmolality and hyponatremia (principal); E46 Unspecified protein-calorie malnutrition; Z68.1 Body mass index [BMI] 19.9 or less, adult; F10.10 Alcohol abuse, uncomplicated; F32.A Depression, unspecified; E87.6 Hypokalemia; E87.8 Other disorders of electrolyte and fluid balance, not elsewhere classified; E87.3 Alkalosis; R62.7 Adult failure to thrive; F01.50 Vascular dementia, unspecified severity, without behavioral disturbance, psychotic disturbance, mood disturbance, and anxiety
CPT/HCPCS: 70450; 80048; 80053; 81003; 82140; 83930; 83935; 84300; 85025; 87045; 87046; 87427; 87798; 94640; 97162; 97530; 99285

== ENCOUNTER → 2024-05-26 11:21 | Outpatient (REF) | payer MEDICARE, SELFPAY ==
[2024-05-26 12:10] LABS: % Basophils 1.1 % (0-2); % Eosinophils 2.8 % (0-6); % Immature Granulocytes 0.5 % (0-0.5); % Lymphocytes 35.3 % (20.5-51.1); % Monocytes 8.4 % (1.7-9.3); % Neutrophils 51.9 % (42.2-75.2); Absolute Basophils 0.1 10^3/uL (0-0.2); Absolute Eosinophils 0.2 10^3/uL (0-0.7); Absolute Lymphocytes 2.3 10^3/uL (1.2-3.4); Absolute Monocytes 0.5 10^3/uL (0.1-0.6); Absolute Neutrophils 3.4 10^3/uL (1.4-6.5); Hematocrit 35.1 % (37.0-47.0); Hemoglobin 11.1 g/dL (12.0-16.0); Mean Corp Hgb Conc. 31.6 g/dL (33.0-37.0); Mean Corpuscular Hgb 30.4 pg (27.0-31.0); Mean Corpuscular Volume 96.2 fL (81.0-99.0); Mean Platelet Volume 9.6 fL (7.4-10.4); Nucleated Red Blood Cells % 0 %; Platelet Count 294 10^3/uL (130-400); Red Blood Cell Count 3.65 10^6/uL (4.20-5.40); Red Cell Dist. Width 14.9 % (11.5-14.5); White Blood Cell Count 6.5 10^3/uL (4.8-10.8)
[2024-05-26 12:32] LABS: Blood Urea Nitrogen 8 mg/dl (7-17); Calcium 8.3 mg/dl (8.4-10.2); Carbon Dioxide 28 mmol/L (22-30); Chloride 102 mmol/L (98-107); Glucose 82 mg/dl (70-99); HDL Cholesterol 65 mg/dl; LDL Cholesterol, Calculated 124 mg/dl; Potassium 4.5 mmol/L (3.5-5.1); Sodium 136 mmol/L (135-145); Total Cholesterol 200 mg/dl (50-199); Triglyceride 57 mg/dl (10-149); Very Low Density Lipoprotein 11 mg/dl (0-30); eGFR > 60.00
[2024-05-26 12:43] LABS: Free T4 0.73 ng/dl (0.78-2.19); Vitamin D, 25-OH*** 13.3 ng/mL (30-80)
[2024-05-26 12:56] LABS: TSH 1.39 uIU/ml (0.47-4.68)
[2024-05-26 13:03] LABS: Glycohemoglobin (HgbA1c) 4.8 % (4.0-5.6)
[2024-05-26 13:16] LABS: Vitamin B12 285 pg/ml (239-931)
== END ==
LOC: OLABSOL 11:21
PROVIDERS: ATTENDING PHYSICIAN Nurse Practitioner Adult Health
DX: D51.9 Vitamin B12 deficiency anemia, unspecified (principal); D64.9 Anemia, unspecified; E03.9 Hypothyroidism, unspecified; R94.4 Abnormal results of kidney function studies; E78.5 Hyperlipidemia, unspecified; E55.9 Vitamin D deficiency, unspecified; D11.9 Benign neoplasm of major salivary gland, unspecified
CPT/HCPCS: 36415; 80048; 80061; 82306; 82607; 83036; 84439; 84443; 85025

== ENCOUNTER 2024-07-03 22:13 | Inpatient (IN) | payer MEDICARE, SELFPAY ==
[2024-07-03] VITALS (7 sets, daily range): BP systolic 113–163; BP diastolic 55–113
[2024-07-03 13:49] LABS: % Basophils 0.3 % (0-2); % Eosinophils 0.1 % (0-6); % Immature Granulocytes 0.6 % (0-0.5); % Lymphocytes 8.1 % (20.5-51.1); % Monocytes 6.7 % (1.7-9.3); % Neutrophils 84.2 % (42.2-75.2); Absolute Basophils 0.1 10^3/uL (0-0.2); Absolute Immature Granulocytes 0.1 10^3/uL (0-0.05); Absolute Lymphocytes 1.5 10^3/uL (1.2-3.4); Absolute Monocytes 1.2 10^3/uL (0.1-0.6); Absolute Neutrophils 15.6 10^3/uL (1.4-6.5); Hematocrit 36.1 % (37.0-47.0); Hemoglobin 12.7 g/dL (12.0-16.0); Mean Corp Hgb Conc. 35.2 g/dL (33.0-37.0); Mean Corpuscular Hgb 29.3 pg (27.0-31.0); Mean Corpuscular Volume 83.2 fL (81.0-99.0); Mean Platelet Volume 8.4 fL (7.4-10.4); Nucleated Red Blood Cells % 0 %; Platelet Count 370 10^3/uL (130-400); Red Blood Cell Count 4.34 10^6/uL (4.20-5.40); Red Cell Dist. Width 13.5 % (11.5-14.5); White Blood Cell Count 18.5 10^3/uL (4.8-10.8)
[2024-07-03 13:53] LABS: Urine Albumin 1+ (Neg - Trace); Urine Bilirubin Negative (Negative); Urine Character Clear (Clear); Urine Color Yellow; Urine Glucose Negative (Negative); Urine Ketone Negative (Negative); Urine Leukocyte Negative (Negative); Urine Nitrite Negative (Negative); Urine Occult Blood 2+ (Negative); Urine Specific Gravity 1.005 (<1.030); Urine Urobilinogen Negative (Neg - 1+)
[2024-07-03 14:11] LABS: Urine White Cell 0-2 /HPF (0-5)
[2024-07-03 15:01] LABS: ALT (SGPT) 16 U/L (0-35); AST (SGOT) 32 U/L (14-36); Albumin 4.3 g/dl (3.5-5.0); Alkaline Phosphatase 86 U/L (38-126); Blood Urea Nitrogen 4 mg/dl (7-17); Calcium 8.7 mg/dl (8.4-10.2); Carbon Dioxide 22 mmol/L (22-30); Chloride 87 mmol/L (98-107); Glucose 110 mg/dl (70-99); Potassium 3.8 mmol/L (3.5-5.1); Sodium 121 mmol/L (135-145); Total Bilirubin 0.8 mg/dl (0.2-1.3); eGFR > 60.00
--- NOTE | 2024-07-03 16:44 | ED.GENMED ---
History of Present Illness
General
Chief Complaint: Fall
Source: patient and skilled nursing records
Exam Limitations: dementia
Time Seen by Provider: 07/03/24 16:02
Nursing documentation reviewed up to this point in time: agreed with
History of Present Illness
History of Present Illness:
Patient is a 68-year-old female w/ history dementia presenting to the emergency department via EMS from nursing facility after unwitnessed fall and change in mental status. Patient unable to contribute much to history given dementia. Did contact
nursing facility however was told there was no nurse in the building to discuss what happened this morning.
According to EMS and nursing documentation�patient was found down in her room at the nursing facility. She was covered in urine. Unknown head strike. Patient apparently has also had a change in mental status. No fevers.
Patient herself denies any headache, chest pain, shortness of breath. She does however note that she has some mild abdominal pain and lack of appetite.
Review of Systems
Review of Systems
Allergies reviewed?: Yes
All Other Systems: ROS reviewed and negative except as documented in HPI and ROS
Phy Exam
Physical Exam
Physical Exam:
Vitals: Hypertensive, tachycardic
General: In no apparent distress. Chronically weak appearing
Skin: Warm and dry, no rashes or lesions
Head: Normocephalic, atraumatic
Eyes: Sclera nonicteric. EOMs intact. No nystagmus.
Throat: Protecting airway
Neck: Normal ROM, no cervical spine tenderness, no meningismus
Cardiac: Regular rate and rhythm, no murmurs.
Pulm: Normal respiratory effort, no wheezes, rales, rhonchi heard on exam. O2 saturation 97 on room air
Abdomen: Abdomen soft. Mild diffuse abdominal tenderness without rebound tenderness or guarding.
Extremities: No evidence of cyanosis or edema
Neuro: AAOx 1 to person, not place or time. Moving all extremities. Fluid speech.
Psychiatric: Normal affect.
Course
Orders/Labs/Results
Orders:
Orders
07/03/24 13:27
Straight cath- Treatment ONCE
07/03/24 13:38
Complete Blood Count/With Diff Urgent
Osmolality, Random Urine Urgent
Date Specimen was Collected: 07/03/24
Time Specimen was Collected: 13:28
Comment: ADDON
Urinalysis Reflex To Culture Urgent
Date Specimen was Collected: 07/03/24
Time Specimen was Collected: 13:28
Urine Microscopic Reflex Cult Urgent
Urine Sodium Urgent
Date Specimen was Collected: 07/03/24
Time Specimen was Collected: 13:28
Comment: MICHAELON
Urine Culture Urgent
MICHAEL Source: U
Specimen Description:
Date Specimen was Collected: 07/03/24
Time Specimen was Collected: 13:28
Comment: ADDON
07/03/24 14:41
Comprehensive Metabolic Panel Urgent
Creatine Phosphokinase Urgent
Comment: ADDON
Serum Osmolality Urgent
Comment: ADDON
07/03/24 16:28
Add On- LAB Urgent
Tests Added?: CK
Cervical Spine wo Contrast CT [CT Cervical Spine W/o Iv Contr] Urgent
Comment:
Reason For Exam: unwitnessed fall, dementia
07/03/24 16:29
CT Abd/pelvis W Iv Cont Urgent
Comment:
Reason For Exam: abdomial pain, anorexia
CT Head W/o Iv Contrast Urgent
Comment:
Reason For Exam: unwitnessed fall
07/03/24 16:30
Electrocardiogram (*1) Urgent
Reason for Study: Fatigue / Weakness
EKG- Treatment ONCE
07/03/24 16:31
Add On- LAB Urgent
Tests Added?: serum osmolality, urine NA, urine osmol
CR Chest - 2 Views Urgent
Comment:
Reason For Exam: URI symptoms per skilled nursing
07/03/24 16:47
COVID-19 Antigen Urgent
Source: Nasal Swab
Lactic Acid Q4H
Comment: CANCEL 2nd LACTIC ACID IF 1st LACTIC ACID IS LESS THAN 2
Troponin I Urgent
Blood Culture Q30M
MICHAEL Source: Blood/Venous
Specimen Description:
Blood Culture Q30M
MICHAEL Source: Blood/Venous
Specimen Description:
Influenza A+B Rapid Molecular Urgent
MICHAEL Source: Nasal Swab
Specimen Description:
07/03/24 21:16
EKG- Treatment ONCE
07/03/24 21:17
Add On - Microbiology Urgent
Tests Added?: urine culture
07/03/24 21:32
Troponin I Urgent
07/03/24 21:57
Admit/Transfer Patient As Directed
Co-Sign Provider:
Level of Care: Inpatient admission
Assign to:: Medical/Surgical
Physician / Group: [email or web address]
Diagnosis: acute on chr hyponatremia, unwitnesed fall, mild rhabdo , AMS
Reason for Hospitalization: acute on chr hyponatremia, unwitnessed fall, mild rhabdomyolysis , AMS
Expected length of stay greater than two midnights?: Yes
ELOS- Estimated Length of Stay in days: 4
I certify the patient meets the requirements for IP care: Yes
07/03/24 22:02
Code Status As Directed
Resuscitation Status: Full Code
07/03/24 23:00
Flush (0.9% Sodium Chloride) [Flush (Nss)] See Dose Instructions IV PER PROTOCOL
07/04/24 00:08
0.9% Sodium Chloride [Nss (Preservative Free)] See Protocol IV PRN PRN
Acetaminophen [Tylenol] 650 mg PO Q4HPRN PRN
Bisacodyl [Dulcolax] 10 mg RECTAL [id number] PRN
Docusate W/Senna [Senokot-S] 1 tablet PO BIDPRN PRN
FOLic ACID [Folvite] 1 mg 0.9% Sodium Chloride 50 ml [Nss] 50 ml IV DAILYPRN
Lorazepam [Ativan] 1 mg IV Q1HPRN PRN
Lorazepam [Ativan] 1 mg PO Q2HPRN PRN
Lorazepam [Ativan] 2 mg IV Q1HPRN PRN
Mirtazapine [Remeron] 15 mg PO HS
Polyethylene Glycol Powder [Miralax] 17 grams PO DAILYPRN PRN
07/04/24 00:08
Case Management Consult Once
Case Management Consult: Other
Comment: Substance abuse counseling
Consult Notification Routine
Specialty to Notify: Nephrology
Date consulting provider notified: 07/04/24
Time consulting provider notified: 07:26
Notified:: Provider
DIETARY CONSULT Routine
Reason for Consult: Nutrition support, possible refeeding guidelines
NEPHROLOGY CONSULT Routine
Consulting Provider: Damon Cronin
Was physician already notified: No
Reason for consult: Acute hyponatremia,Low Ur Osm , low Sr Osm ? Water excess
Activity As Directed
Activity Level: With Assistance
Intake/ Output As Directed
Frequency: Per unit guidelines
MSAS SCORE As Directed
MSAS Score 0-4: Repeat MSAS every 2 hours until 0-4 for three consecutive assessments, then every 4 hours x 48
hours.
MSAS Score 5-7: For MILD withdrawl symptoms. Repeat MSAS and RASS every 2 hours
MSAS Score 8-11: For MODERATE withdrawal symptoms. Repeat MSAS and RASS every 1 hour. Consider ICU or IMU
level of care.
MSAS Score > 11: For SEVERE withdrawal symptoms. Repeat MSAS and RASS every 1 hour. Notify provider, consider
ICU level of care.
MSAS Additional Instructions: If no improvement or no decrease in score from severe to moderate within 12
hours, consult psychiatry
MSAS Notify Provider: Notify provider if patient requires more than 10 mg of Lorazepam in eight hour period.
Vital Signs As Directed
Frequency: Per unit guidelines
Weight As Directed
Frequency: Daily
DX Deep Vein Thrombosis Video Routine
07/04/24 00:34
Alcohol Urgent
B-Hydroxybutyrate Urgent
Basic Metabolic Panel Q6H
GGTP Urgent
07/04/24 05:18
Complete Blood Count/No Diff IN AM
07/04/24 Breakfast
Regular
At Your Request: Limited Participation
Does patient need a safe tray?: No
Fluid Restriction: 1200 mL/day (40 oz)
Oral Supplement (If unsure of flavor order apple or vanilla): Ensure Enlive Chocolate
Supplement Frequency: TID
07/04/24 08:00
FOLic ACID [Folvite] 1 mg PO DAILY
Heparin 5,000 units SC Q12
Thiamine Injection 200 mg IV Q12
Tiotropium [place] 2.5 Mcg [Spiriva Respimat 2.5 Mcg] 2 puff INH R DAILY
thiamine HCl (vitamin B1) 100 mg PO DAILY
07/04/24 10:14
Urinalysis Routine
Date Specimen was Collected: 07/04/24
Time Specimen was Collected: 10:12
Urine Drug Abuse Screen Routine
Date Specimen was Collected: 07/04/24
Time Specimen was Collected: 10:12
07/07/24 08:00
Thiamine HCl [Vitamin B1] 100 mg PO BID
Abnormal Lab Results
07/03/24 07/03/24 07/03/24
13:38 14:41 16:47
WBC 18.5 H 10^3/uL
(4.8-10.8)
Hct 36.1 L %
(37.0-47.0)
Abs Immat Gran (auto) 0.1 H 10^3/uL
(0-0.05)
Absolute Neuts (auto) 15.6 H 10^3/uL
(1.4-6.5)
Absolute Monos (auto) 1.2 H 10^3/uL
(0.1-0.6)
Immature Gran % 0.6 H %
(0-0.5)
Neutrophils % 84.2 H %
(42.2-75.2)
Lymphocytes % 8.1 L %
(20.5-51.1)
Sodium 121 L mmol/L
(135-145)
Chloride 87 L mmol/L
(98-107)
BUN 4 L mg/dl
(7-17)
Creatinine 0.4 L mg/dL
(0.6-1.0)
Glucose 110 H mg/dl
(70-99)
Serum Osmolality 249 L mOsm/kg
(275-300)
Creatine Kinase 716 H U/L
(30-135)
Troponin I 0.324 H* ng/ml
Ur Occult Blood Reflex 2+ A
(Negative)
Urine RBC 7-10 A /HPF
(0-2)
Urine Osmolality 120 L mOsm/kg
(300-900)
Urine Albumin (Reflex) 1+ A
(Neg - Trace)
07/03/24
21:32
WBC
Hct
Abs Immat Gran (auto)
Absolute Neuts (auto)
Absolute Monos (auto)
Immature Gran %
Neutrophils %
Lymphocytes %
Sodium
Chloride
BUN
Creatinine
Glucose
Serum Osmolality
Creatine Kinase
Troponin I 0.230 H* D ng/ml
Ur Occult Blood Reflex
Urine RBC
Urine Osmolality
Urine Albumin (Reflex)
07/03/24 13:38
07/03/24 14:41
Vital Signs
Initial and Last Documented VS:
Initial Vital Signs
Temp Pulse Resp BP Pulse Ox
98.3 F 112 20 163/113 97
07/03/24 13:09 07/03/24 13:09 07/03/24 13:09 07/03/24 13:09 07/03/24 13:09
Last Documented Vital Signs
Temp Pulse Resp BP Pulse Ox
98.2 F 76 18 120/59 97
07/04/24 11:00 07/04/24 11:00 07/04/24 11:00 07/04/24 11:00 07/04/24 11:00
MDM/Problems Addressed
Differential Diagnosis Includes:
Not limited to: Viral illness, UTI, rhabdomyolysis, pneumonia, sepsis, electrolyte abnormality, intracerebral hemorrhage, etc.
MDM/Problems Addressed:
68-year-old female presenting after unwitnessed fall at skilled nursing. History difficult to obtain given history of dementia. Vital signs stable. Physical exam as above. Patient arrives alert, oriented x 1 which is her baseline. No evidence of
traumatic injury. Cardio/pulmonary assessment unremarkable. Patient is moving all extremities. Abdomen soft with mild diffuse tenderness. No focal neurologic changes from her baseline. Differential is broad at this time. Will rule out traumatic
injury from fall as well as metabolic/infectious sources that may have led to fall. Basic labs were initiated in triage significant for leukocytosis of 18.5. Chemistry shows acute hyponatremia of 121. Given unknown circumstance surrounding
fall�will obtain CK, troponin. Will check head and cervical spine CT as well as abdominal CT. Will check chest x-ray. Given significant leukocytosis�will obtain lactic and blood send cultures. Patient receiving IV fluids. Patient will require
admission for acute hyponatremia.
Update: Lactic of 2. Troponin is elevated 0.324 without any acute ischemic changes noted on EKG. Low suspicion for ACS although will continue to trend. CK of 716. Urine without convincing evidence of infection. Imaging pending. Patient remains
hemodynamically stable.
Update: Imaging reviewed. Chest x-ray without acute abnormalities. CT head, cervical spine, and abdomen/pelvis without acute abnormalities. Patient remained stable. She will require admission for acute hyponatremia. There is also a concern for
occult infection given significant leukocytosis�however this may be reactive. No source of infection identified and patient is afebrile�will avoid ABX for now. Blood cultures and urine cultures have been sent. Will continue to trend troponin.
Patient excepted to hospital service in stable condition. Case discussed with attending physician.
Chronic conditions affecting care:
Dementia
Acute Exacerbation and/or Progression of Chronic Illness:
N/A
*Radiology
Radiology exam reviewed: preliminary read by ED provider (Chest x-ray reviewed by me-no acute abnormalities) and radiology read reviewed
*Pulse Oximetry
Patient hypoxic: no
*EKG
Interpreted by ED Provider?: Yes
EKG Intrepretation Date: 07/03/24
Interpretation: abnormal
Comparison EKG: changes noted
Heart Rate: 94
Rate: normal
Rhythm: sinus
[place]: left axis deviation
Interval: long QT
QRS Pattern: normal QRS
Ischemia: non-specific ST changes (Anterior/inferior leads)
*Makeup Editor Interpretation
Rate: normal
Interpretation: normal
Heart Rate: 96
Rhythm: sinus
*Critical Care Note
Total Time (30-74mins, 75-104mins- exclusive of procedures): Not Applicable
Patient Management
Discussion with other providers: Hospitalist
Escalation/DeEscalation of care consider admission/obs:
Admit for acute hyponatremia/troponin trend
ED Attending Note
-
Portions of this chart may have been created with voice recognition software.� Occasional wrong word or��sound alike� substitutions may have occurred due to the inherent limitations of voice recognition software.
Discharge Plan
Departure
Patient Disposition: Admit
Date of Disposition: 07/03/24
Time of Disposition: 21:16
Presentation/result/management discussed w/ accepting MD/DO: Hospitalist
Discharge Problem:
Acute hyponatremia, Elevated troponin
Interventions
Interventions:
*Risk Screen - Suicide Last Done: 07/03/24 14:00
*General Assessment Last Done: 07/03/24 13:09
*Neglect/Abuse Screening Last Done: 07/03/24 13:09
*ED COVID-19 Vaccine History Last Done: 07/04/24 00:30
*Nursing Disposition Last Done: 07/04/24 00:03
ED-Female Genitourinary Assessment Last Done: 07/03/24 14:00
ED-Musculoskeletal Assessment Last Done: 07/03/24 14:00
ED- Neurological Assessment Last Done: 07/03/24 14:00
ED-Skin Assessment Last Done: 07/03/24 14:00
Discharge Date and Time
Discharge Date/Time: 07/04/24 00:03
[2024-07-03 17:11] LABS: Osmolality Urine 120 mOsm/kg (300-900)
[2024-07-03 17:17] LABS: Urine Sodium 30 mmol/L (30-90)
[2024-07-03 17:20] LABS: COVID-19 Antigen Negative (Negative)
[2024-07-03 17:24] LABS: Osmolality Serum 249 mOsm/kg (275-300)
[2024-07-03 17:28] LABS: Creatine Phosphokinase 716 U/L (30-135)
[2024-07-03 17:43] LABS: Troponin I 0.324 ng/ml
--- NOTE | 2024-07-03 21:52 | HPS.HSE ---
Family Physician
-
Family Physician: Hammad Reynolds
Chief Complaint
-
unwitnessed fall, AMS
History of Present Illness
68F Res local NH, HX dementia seen at ER;
- evaluation for unwitnessed fall and change in mental status.
- unable to contribute much to history given dementia.
- per fascilty there was no nurse in the building to discuss what happened this morning.
- According to EMS and nursing documentation�patient was found down in her room at the nursing facility.
- She was covered in urine. Unknown head strike.
- No fevers.
ROS
- denies any headache, chest pain, shortness of breath.
- she does however note that she has some mild abdominal pain and lack of appetite.
Medical History
Past Medical History
Past Medical History: Reports Cancer (Breast carcinoma status post mastectomy, chemo and radiation treatment.), CVA and Other (Dementia likely vascular type)
Past Surgical History: Reports Other (Mastectomy)
Social History
Tobacco: Non-smoker
Alcohol: Former
Drug: None
Personal:
Living: With Family
Employment: Not Employed
Family History
Family History: Not pertinent
Allergies / Home Medications
Allergies reflects when Allergies were last updated in [facility].
Home Medications with original date entered in [facility]
Allergy/Medication List:
Allergies
Allergy/AdvReac Type Severity Reaction Status Date / Time
No Known Allergies Allergy Unverified 04/26/24 10:28
Home Medications
folic acid 1 mg tablet 1 mg PO DAILY 30 days #30 tabs 03/12/24
mirtazapine 15 mg tablet 15 mg PO HS 30 days #30 tabs 03/12/24
thiamine HCl (vitamin B1) 100 mg tablet 100 mg PO DAILY 30 days #30 tabs 03/12/24
ipratropium 20 mcg-albuterol 100 mcg/actuation mist for inhalation (Combivent Respimat) 1 puff inhalation R DAILY 04/26/24
sulfamethoxazole 800 mg-trimethoprim 160 mg tablet 1 tab PO BID 04/26/24
Review of Systems
-
Unable to obtain full review of systems at this time due to: Dementia
A 12 point ROS was completed and negative except as noted: No
Physical Exam
Vital Signs
Vital Signs
Temp Pulse Resp BP Pulse Ox
98.3 F 89 16 113/55 96
07/03/24 13:09 07/03/24 21:30 07/03/24 20:45 07/03/24 21:00 07/03/24 21:30
Physical Exam
General: No Apparent Distress and Cachectic (BMI 15 )
HEENT: NormoCephalic, Moist mucous membranes and Atraumatic
Respiratory: Clear
Cardiac: S1/S2 and Regular Rhythm; No Murmur or Rub
GI: Soft, Non Tender, Non Distended and Normal Bowel Sounds; No Organomegaly
Rectal: Deferred by Provider
Musculoskeletal: No Clubbing, No Cyanosis and No Edema
Skin: No Rash
Neuro: Nonfocal/grossly intact
Psych: Calm
Laboratory Results
-
07/03/24 13:38
07/03/24 14:41
Laboratory Results
Lactic Acid 2.0 mmol/L (0.7-2.0) 07/03/24 16:47
Lactic Acid Cancelled 07/03/24 16:47
Total Bilirubin 0.8 mg/dl (0.2-1.3) 07/03/24 14:41
AST 32 U/L (14-36) 07/03/24 14:41
ALT 16 U/L (0-35) 07/03/24 14:41
Alkaline Phosphatase 86 U/L (38-126) 07/03/24 14:41
Troponin I 0.324 ng/ml H* 07/03/24 16:47
Data Reviewed
-
CT Scan: Report Reviewed by me
Medical Tests (Nuc Med, Echo, EKG etc): Report Reviewed by me
Lab Data: Labs Reviewed by me
Old Records: Reviewed
Impression/Plan
-
Data
WCC 18.5
Na 121 Low Sr Osm 249 low Ur Osm 120 Ur Na 30
Cl 87
Nl Cr
Nl eGFR
CK 716
NEG Covid
NEG Flu A & B
CXR:
Slightly rotated left and slightly diminished degree of inspiration compared to prior examination.
No evidence of pneumonia.
Mild cardiomegaly, slightly increased, though likely accentuated by poor inspiration.
No pneumothorax or pleural effusion.
HCT w/o IV contrast
- Stable examination, as described.
- No acute intracranial abnormality noted. No acute intracranial hemorrhage. No skull fracture.
CT Abd/pelvis W Iv Cont
Minor nonspecific ascites in the posterior left upper quadrant. No focal collection or abscess. No free air.
No evidence to suggest hollow or solid visceral organ injury.
Diverticulosis without acute diverticulitis.
Moderate to advanced distention of the urinary bladder. No bladder wall thickening. No obstructive uropathy. Small renal cysts. Findings suggest possibility of small focal posterior lower pole left renal cortical infarct since prior examination.
Otherwise stable bilateral renal cysts.
No osseous fracture.
CT Cervical Spine W/o Iv Contr
No fracture.
Degenerative changes.
Carotid calcified plaque. Consider correlation with nonemergent follow-up carotid ultrasound.
Incidental mild gaseous distention of the proximal esophagus with suggested wall thickening. Recommend correlation with Swallowing function assessment.
ASSESSMENT & PLAN
Unwitnessed Fall: found down at [facility] facility
Associated elevated CKs
- Trend CPKs
Acute hyponatremia with mild hypochloremic alkalosis; Suspect hypovolemia with low oral intake.
HX recurrent hyponatremia
Low Ur Osm , low Sr Osm NOT c/w SIADH DDX: ? Water excess with ow solute intake
Recent TSH within normal limits.
Multifactorial: low solute intake as she is thin and cachectic 3-4 beers daily
- S/P IV NS at ER then further Fluid restrict
- Trend Na Q6H
- Renal consult
Leukocytosis w/ concern for occult infection although no source identified.
WCC 18.5
- Urine does not appear infected.
- UCx sent , BCx sent
- Holding abx now.
Severe protein calorie malnutrition with evidence of cachexia temporal wasting with BMI <18
-Albumin 2.3 with a BMI of 15.2
-Encourage protein intake
- Regular diet
- Powder Blender And Pourer consult
Alcohol use disorder
- Reports last use of ETOH few months ago
- ETOH WD protocol
DVT Px: SQH
Full code
IP MS
[2024-07-04] VITALS (7 sets, daily range): BP systolic 96–141; BP diastolic 53–83; PULSE 75; O2SAT 97; BMI 18.7; BMI 18.6
[2024-07-04] MEDS: REMERON 15 MG PO ×2 (01:17→21:23)
[2024-07-04 01:18] LABS: Blood Urea Nitrogen 5 mg/dl (7-17); Calcium 8.6 mg/dl (8.4-10.2); Carbon Dioxide 28 mmol/L (22-30); Chloride 98 mmol/L (98-107); Estimated Creatinine Clearance 66 ml/min; GGTP 17 U/L (12-43); Glucose 109 mg/dl (70-99); Potassium 3.7 mmol/L (3.5-5.1); Sodium 128 mmol/L (135-145); eGFR > 60.00
[2024-07-04 01:19] LABS: Alcohol None Detected
[2024-07-04 01:24] LABS: B-Hydroxybutyrate 0.12 mmol/L (0.02-0.27)
--- NOTE | 2024-07-04 01:44 | PTCARENOTE ---
Patient arrived to unit via stretcher at approximately 0015 with hyponatremia, AMS, unwittnessed fall and mild rhabdo. Patient ambulated to bed with assist of 1. Awake, alert and oriented x 2, self and location only. Bed alarm applied. Denies pain
or discomfort. Oriented to unit. Call mari within reach.
[2024-07-04 06:02] LABS: Hematocrit 34.3 % (37.0-47.0); Hemoglobin 11.9 g/dL (12.0-16.0); Mean Corp Hgb Conc. 34.7 g/dL (33.0-37.0); Mean Corpuscular Hgb 29.4 pg (27.0-31.0); Mean Corpuscular Volume 84.7 fL (81.0-99.0); Mean Platelet Volume 8.6 fL (7.4-10.4); Platelet Count 317 10^3/uL (130-400); Red Blood Cell Count 4.05 10^6/uL (4.20-5.40); Red Cell Dist. Width 13.8 % (11.5-14.5); White Blood Cell Count 10.3 10^3/uL (4.8-10.8)
[2024-07-04] MEDS: SPIRIVA RESPIMAT 2.5 MCG 2 PUFF INH (08:05)
[2024-07-04] MEDS: THIAMINE INJECTION 200 MG IV ×2 (08:58→21:18)
[2024-07-04] MEDS: PROTONIX 40 MG PO (08:58)
[2024-07-04] MEDS: FOLVITE 1 MG PO (08:58)
[2024-07-04] MEDS: HEPARIN 5000 UNITS SC ×2 (08:59→21:22)
--- NOTE | 2024-07-04 10:03 | CM ---
Addendum entered by Katelynn Jackson 07/04/24 10:53:
CM spoke with patients nurse, Madhuri, from [facility]. Per Nurse, patient alert/oriented x1, ambulates independently/ no device, min assist with personal care, not currently receiving any PT/OT/Speech. Discussed patient report of alcohol consumption,
nurse reports does not believe this to be accurate, strict orders for no alcohol/cigarette use. Will continue to follow for all discharge planning needs.
Original Note:
CM reviewed chart, patient from [facility]. Call placed to [facility] to obtain patients PLOF, left message for nurse. Patient seen bedside, unable to obtain history, patient with Dementia. Patient reports she does not use any device for ambulation, reports
she has been at [facility] for about 4-5 days. CM will await return call from nurse at facility. CM will continue to follow for all discharge planning needs.
Plan; return to [facility] when stable, watch for PT evaluations.
Kylah
Report: [phone]
fax: [phone]
[2024-07-04 10:35] LABS: Urine Albumin 1+ (Neg - Trace); Urine Bilirubin Negative (Negative); Urine Character Clear (Clear); Urine Color Yellow; Urine Glucose Negative (Negative); Urine Ketone Negative (Negative); Urine Leukocyte Negative (Negative); Urine Nitrite Negative (Negative); Urine Occult Blood Negative (Negative); Urine Specific Gravity 1.005 (<1.030); Urine Urobilinogen Negative (Neg - 1+)
[2024-07-04 10:52] LABS: Amphetamines Negative (Negative); Barbiturates Negative (Negative); Benzodiazepines Negative (Negative)
[2024-07-04 10:53] LABS: Buprenorphine Negative (Negative); Cocaine Negative (Negative); Marijuana Negative (Negative); Methadone Negative (Negative); Methamphetamines Negative (Negative); Opiates Negative (Negative); Phencyclidine Negative (Negative); Tricyclic Antidepressants Negative (Negative)
--- NOTE | 2024-07-04 11:38 | W.PN.HOSP.TC ---
Today's Communication/Plan
-
see outlined plan
Assessment / Plan
Assessment / Plan
Assessment:
Fall (unwitnessed fall)
Rhabdomyolysis
- trauma workup
- trend CPK levels
- PT/OT
Acute symptomatic hyponatremia (acute Metabolic encephalopathy)
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
- likely polydipsia with low U osm
- check TSH, check AM Cortisol
- continue OFR
- trend Na
- Nephrology consult
Elevated troponin unclear significance
- repeat trop now
- EKG now and AM
- check Echo
Severe protein caloric malnutrition
- dietary consult; continue supplements
Hx of CVA
hx of Dementia, Vascular dementia likely
- continue Remeron
Hx of Alcohol use disorder
- no ETOH intake in 3 months since residence of [place]; confirmed with
Leukocytosis
- UA negative, CXR negative
- Bcx pending
- monitor CBC
DVT ppx: SC heparin
Code: Full
Anticipated Discharge: > 48 hours
Subjective/Interval History
-
Date of Service: July 04, 2024
Objective Data
-
Labs:
Laboratory Results
07/04/24 07/04/24 07/04/24
00:34 05:18 11:34
WBC 10.3
Hgb 11.9 L
Hct 34.3 L
Plt Count 317
Sodium 128 L Pending
Potassium 3.7 Pending
Chloride 98 Pending
Carbon Dioxide 28 Pending
BUN 5 L Pending
Creatinine 0.5 L Pending
Glucose 109 H Pending
Calcium 8.6 Pending
Vital Signs:
Vital Signs
Temp Pulse Resp BP Pulse Ox
98.9 F 71 18 96/53 96
07/04/24 07:00 07/04/24 08:11 07/04/24 08:11 07/04/24 07:00 07/04/24 08:11
I&O
07/03/24 07/04/24 07/05/24
06:59 06:59 06:59
Intake Total 240 / 240
Balance 240 / 240
Data Reviewed
-
Total Time Spent with Patient (in minutes): 42
Labs: Labs Reviewed by me
--- NOTE | 2024-07-04 12:29 | PTOTSP ---
Speech Pathology
Clinical Swallow Evaluation
68F with admission for fall and AMS. Dx with rhabdomyolysis, acute symptomatic hyponatremia (acute Metabolic encephalopathy), elevated troponin, severe protein caloric malnutrition. [facility] resident.
Presents with a functional oropharyngeal swallow. No overt concerns for aspiration at this time.
Recommend:
1. Regular textures (IDDSI 7), Thin liquids (IDDSI 0)
2. Meds as best tolerated
3. CORK PAINTER AND GRADER service to sign off; please reconsult if overt concerns for aspiration arise
[2024-07-04 12:32] LABS: Urine Red Blood Cell 0-2 /HPF (0-2); Urine Squamous Cell 0-2 /LPF (Few); Urine White Cell 0-2 /HPF (0-5)
--- NOTE | 2024-07-04 12:38 | PTCARENOTE ---
Placed on telemetry per order, sinus rhythm w/ BBBC and PVCs, HR 70s.
[2024-07-04 12:47] LABS: Blood Urea Nitrogen 7 mg/dl (7-17); Calcium 8.7 mg/dl (8.4-10.2); Carbon Dioxide 25 mmol/L (22-30); Chloride 97 mmol/L (98-107); Estimated Creatinine Clearance 66 ml/min; Glucose 94 mg/dl (70-99); Potassium 3.5 mmol/L (3.5-5.1); Sodium 132 mmol/L (135-145); eGFR > 60.00
[2024-07-04 12:58] LABS: Creatine Phosphokinase 1026 U/L (30-135)
--- NOTE | 2024-07-04 13:48 | W.CON.NEPH ---
Consultation
-
Date/Time Consultation Requested: July 04, 2024 at 12 AM
Date/Time Consultation Performed: July 04, 2024 at 1 pm
Requesting Provider: Dr. Park
Performing Provider: Dr. Damon Cronin
Reason for Consultation: Hyponatremia
Medical History
-
Chief Complaint: Hyponatremia
History of Present Illness:
68-year-old female w/ history dementia presenting to the emergency department via EMS from nursing facility after unwitnessed fall and change in mental status. Patient unable to contribute much to history given dementia.
She was found to have hyponatremia of 121 therefore renal consult.
The patient is comfortable speaking in the bed but unable to provide history.
Past Medical History
Breast cancer status post mastectomy in 1989
Social History
Tobacco: Smoker
Alcohol: Daily
Family History
No CKD
Allergies / Home Medications
Allergy/AdvReac Type Severity Reaction Status Date / Time
No Known Allergies Allergy Verified 07/03/24 13:20
�Medication �Instructions �Recorded �Confirmed �Type
mirtazapine 15 mg tablet 15 mg PO HS 30 days #30 tabs 03/12/24 07/03/24 Rx
thiamine HCl (vitamin B1) 100 mg 100 mg PO DAILY 30 days #30 tabs 03/12/24 07/03/24 Rx
tablet
tiotropium bromide 18 mcg capsule 2 cap inhalation R DAILY 07/03/24 07/03/24 History
with inhalation device
Review of Systems
-
No chest pain or shortness of breath
Unable to obtain full review of systems at this time due to: Dementia
Physical Exam
Vital Signs
Vital Signs
Temp Pulse Resp BP Pulse Ox
98.2 F 76 18 120/59 97
07/04/24 11:00 07/04/24 11:00 07/04/24 11:00 07/04/24 11:00 07/04/24 11:00
Lab Results
WBC 10.3 10^3/uL (4.8-10.8) 07/04/24 05:18
RBC 4.05 10^6/uL (4.20-5.40) L 07/04/24 05:18
Hgb 11.9 g/dL (12.0-16.0) L 07/04/24 05:18
Hct 34.3 % (37.0-47.0) L 07/04/24 05:18
Plt Count 317 10^3/uL (130-400) 07/04/24 05:18
Sodium 132 mmol/L (135-145) L 07/04/24 12:07
Potassium 3.5 mmol/L (3.5-5.1) 07/04/24 12:07
Chloride 97 mmol/L (98-107) L 07/04/24 12:07
Carbon Dioxide 25 mmol/L (22-30) 07/04/24 12:07
BUN 7 mg/dl (7-17) 07/04/24 12:07
Creatinine 0.6 mg/dL (0.6-1.0) 07/04/24 12:07
eGFR > 60.00 07/04/24 12:07
Glucose 94 mg/dl (70-99) 07/04/24 12:07
Calcium 8.7 mg/dl (8.4-10.2) 07/04/24 12:07
Albumin 4.3 g/dl (3.5-5.0) 07/03/24 14:41
Physical Exam
General: AOx3, Nontoxic , NAD, profoundly cachectic
HEENT: PERRL, EOMI, Anicteric, Conjunctivae Clear, Ear/Nose Intact, Hearing Normal, Oropharynx Clear/Moist, Dentition Intact, Facial Symmetry, Neck Supple, Neck: Trachea Midline, No JVD and No Thyromegaly, no Bruits
Respiratory: Clear to auscultation bilaterally with normal lung exersion
Cardiac: S1/S2 and Regular Rate/Rhythm
Breast: Deferred by me
Abdomen: Soft, Nontender, Nondistended, Normal Bowel Sounds and No Hepatosplenomegaly
Rectal: Deferred by Provider
Genito-urinary: No Costovertebral Tenderness
Extremities: No Clubbing, No Cyanosis and No Edema
Skin: No Rash or open lesions
Neuro: Nonfocal/Grossly Intact, CN II-XII (Intact) and Strength (Musculoskeletal exam 5 out of 5 both upper and lower extremities)
Hematologic/Lymphatic: No Cervical Lymphadenopathy, No Submandibular Lymphadenopathy and No Supraclavicular Lymphadenopathy
Psych: Mood/afflect pleasant, Insight/judgement questionable
Vascular: plus 2 pedal and radial pulses
Data Reviewed
-
Ultrasound: Image Personally Visualized and interpreted (No acute pathology)
Labs: Labs Reviewed by me
Assessment/Plan
-
Impression:
Hyponatremia acute on chronic with a admission sodium of 121
Dementia at baseline
Cachexia and anorexia
Tobacco and alcohol dependence
Plan:
Hyponatremia: 121 on admission with chronic hyponatremia around 126. 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
Urine indices not consistent with SIADH at this time with a urine sodium of 30 and urine Osmo 120.
encourage solute intake
Fluid restrict
Current sodium is 132 I will liberalize the fluid intake
Fluid restrict to 1500 mL
I will give a bolus of D5W to slow down correction slightly.
Recheck serum sodium this evening
[2024-07-04] MEDS: NSS 500 IV (14:07)
[2024-07-04 20:08] LABS: Blood Urea Nitrogen 8 mg/dl (7-17); Calcium 8.4 mg/dl (8.4-10.2); Carbon Dioxide 25 mmol/L (22-30); Chloride 99 mmol/L (98-107); Estimated Creatinine Clearance 66 ml/min; Glucose 121 mg/dl (70-99); Potassium 3.3 mmol/L (3.5-5.1); Sodium 130 mmol/L (135-145); eGFR > 60.00
[2024-07-04] MEDS: KCL 40 MEQ PO (21:23)
[2024-07-05 04:05] VITALS: BP 145/68
[2024-07-05 06:00] VITALS: BMI 18.6
[2024-07-05 07:00] VITALS: BP 137/78
[2024-07-05] MEDS: SPIRIVA RESPIMAT 2.5 MCG 2 PUFF INH (07:24)
[2024-07-05] MEDS: HEPARIN 5000 UNITS SC ×2 (08:41→20:53)
[2024-07-05] MEDS: FOLVITE 1 MG PO (08:41)
[2024-07-05] MEDS: THIAMINE INJECTION 200 MG IV ×2 (08:43→20:53)
[2024-07-05] MEDS: PROTONIX 40 MG PO (08:43)
[2024-07-05 09:15] LABS: Hematocrit 35.9 % (37.0-47.0); Hemoglobin 11.9 g/dL (12.0-16.0); Mean Corp Hgb Conc. 33.1 g/dL (33.0-37.0); Mean Corpuscular Hgb 29.2 pg (27.0-31.0); Mean Platelet Volume 9.2 fL (7.4-10.4); Platelet Count 312 10^3/uL (130-400); Red Blood Cell Count 4.08 10^6/uL (4.20-5.40); Red Cell Dist. Width 14.4 % (11.5-14.5)
[2024-07-05 10:08] LABS: Blood Urea Nitrogen 5 mg/dl (7-17); Calcium 8.7 mg/dl (8.4-10.2); Carbon Dioxide 24 mmol/L (22-30); Chloride 103 mmol/L (98-107); Creatine Phosphokinase 702 U/L (30-135); Estimated Creatinine Clearance 66 ml/min; Glucose 85 mg/dl (70-99); Potassium 4.1 mmol/L (3.5-5.1); Sodium 135 mmol/L (135-145); eGFR > 60.00
[2024-07-05 10:14] LABS: Cortisol, Random 12.2 ug/dl; TSH Reflex To Free T4 1.26 uIU/ml (0.47-4.68)
[2024-07-05] MEDS: NSS 1000 IV (10:52)
[2024-07-05 11:32] VITALS: BP 120/58
[2024-07-05 11:36] VITALS: BMI 18.6
--- NOTE | 2024-07-05 13:06 | W.PN.HOSP.TC ---
Today's Communication/Plan
-
continue IVF; await repeat AM CPK
await Echo
Assessment / Plan
Assessment / Plan
Assessment:
Fall (unwitnessed fall)
acute traumatic Rhabdomyolysis
- trauma workup negative
- trend CPK levels; continue IVF
- PT/OT - no needs, at baseline ambulation
Acute symptomatic hyponatremia (acute Metabolic encephalopathy)
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
- likely polydipsia with low U osm
- TSH, AM Cortisol normal
- continue OFR (1.5L)
- trend Na, now 135
- Nephrology following
Elevated troponin unclear significance
- trop peaked at .324
- AM EKG NSR
- awaiting Echo
Severe protein caloric malnutrition
- dietary following; continue supplements
Hx of CVA
hx of Dementia, Vascular dementia likely
- continue Remeron
Hx of Alcohol use disorder
- no ETOH intake in 3 months since residence of [place]; confirmed with . [facility].
Leukocytosis
- resolved
- all cultures negative. no fevers
DVT ppx: SC heparin
Code: Full
Anticipated Discharge: Within 24 hours
Subjective/Interval History
-
Date of Service: July 05, 2024
resting comfortably, no complaints
Objective Data
-
Labs:
Laboratory Results
07/05/24 07/05/24
06:59 07:00
WBC 8.0
Hgb 11.9 L
Hct 35.9 L
Plt Count 312
Sodium 135
Potassium 4.1
Chloride 103
Carbon Dioxide 24
BUN 5 L
Creatinine 0.5 L
Glucose 85
Calcium 8.7
Vital Signs:
Vital Signs
Temp Pulse Resp BP Pulse Ox
98.2 F 69 18 120/58 99
07/05/24 11:32 07/05/24 11:32 07/05/24 11:32 07/05/24 11:32 07/05/24 11:32
I&O
07/04/24 07/05/24 07/06/24
06:59 06:59 06:59
Intake Total 240 / 240 480 / 480 240 / 240
Balance 240 / 240 480 / 480 240 / 240
Physical Exam
-
General: No Apparent Distress
HEENT: Normocephalic and Atraumatic
Respiratory: Negative Wheezes
Cardiac: Regular Rhythm and S1/S2
GI: Soft and Nontender
Musculoskeletal: No Edema
Neuro: Awake
Psych: Calm and Apparent Dementia
Data Reviewed
-
Total Time Spent with Patient (in minutes): 42
Labs: Labs Reviewed by me
--- NOTE | 2024-07-05 14:56 | W.PN.NEPH.PH ---
Today's Communication / Plan
-
follow lab s
encourage solute intake
Assessment/Plan
-
Impression:
Hyponatremia acute on chronic with a admission sodium of 121
Dementia at baseline
Cachexia and anorexia
Tobacco and alcohol dependence
Plan:
Hyponatremia: 121 on admission with chronic hyponatremia around 126. 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
Urine indices not consistent with SIADH at this time with a urine sodium of 30 and urine Osmo 120.
sodium in normal range , appropriate correction
encourage solute intake
Fluid restrict to 1500 mL
on IVF NS for mild Rhabdo per primary
echo normal EF
-
-
Date of Service: July 05, 2024
CC / HPI / ROS
-
Chief Complaint:
hyponatremia
History of Present Illness:
sodium better at 135, k normal 4.1 better
BP stable
no fever
Review of Systems:
no n/v
no cp or sob
mild dizzy when changing positions quickly
Labs
-
Labs:
WBC 8.0 10^3/uL (4.8-10.8) 07/05/24 07:00
RBC 4.08 10^6/uL (4.20-5.40) L 07/05/24 07:00
Hgb 11.9 g/dL (12.0-16.0) L 07/05/24 07:00
Hct 35.9 % (37.0-47.0) L 07/05/24 07:00
Plt Count 312 10^3/uL (130-400) 07/05/24 07:00
Sodium 135 mmol/L (135-145) 07/05/24 06:59
Potassium 4.1 mmol/L (3.5-5.1) 07/05/24 06:59
Chloride 103 mmol/L (98-107) 07/05/24 06:59
Carbon Dioxide 24 mmol/L (22-30) 07/05/24 06:59
BUN 5 mg/dl (7-17) L 07/05/24 06:59
Creatinine 0.5 mg/dL (0.6-1.0) L 07/05/24 06:59
eGFR > 60.00 07/05/24 06:59
Glucose 85 mg/dl (70-99) 07/05/24 06:59
Calcium 8.7 mg/dl (8.4-10.2) 07/05/24 06:59
Albumin 4.3 g/dl (3.5-5.0) 07/03/24 14:41
Physical Exam
-
Vital Signs:
Vital Signs
Temp Pulse Resp BP Pulse Ox
98.2 F 69 18 120/58 99
07/05/24 11:32 07/05/24 11:32 07/05/24 11:32 07/05/24 11:32 07/05/24 11:32
Cardiovascular:: Regular rate and rhythm
Respiratory:: Bilateral: CTA
Lung Excursion:: Normal
Abdomen:: Nontender and Soft
Extremity Edema:: None: Bilateral:
Jo Catheter: No
[2024-07-05 15:00] VITALS: BP 126/67
[2024-07-05 19:15] VITALS: BP 105/60
[2024-07-05] MEDS: REMERON 15 MG PO (20:56)
[2024-07-05 23:35] VITALS: BP 131/66
[2024-07-06 03:04] VITALS: BP 107/58
[2024-07-06 06:00] VITALS: BMI 18.3
[2024-07-06] MEDS: SPIRIVA RESPIMAT 2.5 MCG 2 PUFF INH (06:18)
[2024-07-06 06:25] VITALS: BMI 18.3
[2024-07-06 07:50] VITALS: BP 102/75
[2024-07-06 08:15] LABS: Hematocrit 33.8 % (37.0-47.0); Hemoglobin 11.2 g/dL (12.0-16.0); Mean Corp Hgb Conc. 33.1 g/dL (33.0-37.0); Mean Corpuscular Hgb 29.1 pg (27.0-31.0); Mean Corpuscular Volume 87.8 fL (81.0-99.0); Mean Platelet Volume 8.6 fL (7.4-10.4); Platelet Count 278 10^3/uL (130-400); Red Blood Cell Count 3.85 10^6/uL (4.20-5.40); Red Cell Dist. Width 14.2 % (11.5-14.5)
[2024-07-06] MEDS: FOLVITE 1 MG PO (08:36)
[2024-07-06] MEDS: HEPARIN 5000 UNITS SC (08:37)
[2024-07-06] MEDS: PROTONIX 40 MG PO (08:37)
[2024-07-06] MEDS: THIAMINE INJECTION 200 MG IV (08:37)
[2024-07-06 08:50] LABS: Blood Urea Nitrogen 8 mg/dl (7-17); Calcium 8.2 mg/dl (8.4-10.2); Carbon Dioxide 28 mmol/L (22-30); Chloride 104 mmol/L (98-107); Creatine Phosphokinase 370 U/L (30-135); Estimated Creatinine Clearance 64 ml/min; Glucose 93 mg/dl (70-99); Potassium 3.9 mmol/L (3.5-5.1); Sodium 136 mmol/L (135-145); eGFR > 60.00
[2024-07-06 11:26] VITALS: BP 141/77
--- NOTE | 2024-07-06 12:00 | W.PN.HOSP.TC ---
Today's Communication/Plan
-
dc back to [facility]
weeky lab script given
Assessment / Plan
Assessment / Plan
Assessment:
Fall (unwitnessed fall)
acute traumatic Rhabdomyolysis
- trauma workup negative
- trend CPK levels now around 300s
- PT/OT - no needs, at baseline ambulation
Acute symptomatic hyponatremia (acute Metabolic encephalopathy)
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
- likely polydipsia with low U osm
- TSH, AM Cortisol normal
- continue OFR (1.5L)
- trend Na, now 136
- repeat BMP weekly at me
Elevated troponin unclear significance
- trop peaked at .324
- AM EKG NSR
- Echo: normal EF, no WMA
Severe protein caloric malnutrition
- dietary following; continue supplements
Hx of CVA
hx of Dementia, Vascular dementia likely
- continue Remeron
Hx of Alcohol use disorder
- no ETOH intake in 3 months since residence of [place]; confirmed with . [facility].
Leukocytosis
- resolved
- all cultures negative. no fevers
DVT ppx: SC heparin
Code: Full
More than 30 minutes spent in discharge including
Final examination of the patient
Summarizing hospital stay
Instructions for continuing care to all relevant caregivers
Preparation of discharge records, prescriptions, and referral forms
Total time spent (in minutes): 42
Anticipated Discharge: Today
Subjective/Interval History
-
Date of Service: July 06, 2024
no complaints
Objective Data
-
Labs:
Laboratory Results
07/06/24
07:43
WBC 8.0
Hgb 11.2 L
Hct 33.8 L
Plt Count 278
Sodium 136
Potassium 3.9
Chloride 104
Carbon Dioxide 28
BUN 8
Creatinine 0.5 L
Glucose 93
Calcium 8.2 L
Vital Signs:
Vital Signs
Temp Pulse Resp BP Pulse Ox
97.7 F 71 16 141/77 97
07/06/24 11:26 07/06/24 11:26 07/06/24 11:26 07/06/24 11:26 07/06/24 11:26
I&O
07/05/24 07/06/24 07/07/24
06:59 06:59 06:59
Intake Total 480 / 480 1700 / 1700
Balance 480 / 480 1700 / 1700
Physical Exam
-
General: No Apparent Distress
HEENT: Normocephalic and Atraumatic
Respiratory: Clear to Auscultation; Negative Wheezes
Cardiac: Regular Rhythm and S1/S2
GI: Soft and Nontender
Musculoskeletal: No Edema
Neuro: Awake and Alert
Hematologic / Lymphatic: No Lymphadenopathy
Psych: Calm and Apparent Dementia
Data Reviewed
-
Total Time Spent with Patient (in minutes): 42
Labs: Labs Reviewed by me
--- NOTE | 2024-07-06 12:07 | W.DS.TRANS ---
DC Summary - [employer]
-
Discharge Instructions:
Discharge Diagnosis/Procedures symptomatic hyponatremia, rhabdomyolysis from
fall
Diet Restrict fluids to 48 oz,Regular
Activity As tolerated
Bathing Restrictions None
Blood Work repeat BMP weeky - script given
Instructions:
Stand-Alone Forms:
Changes to Home Medications: No
Discharge Medications:
DC Medications w/original date entered in [facility]
mirtazapine 15 mg tablet 15 mg PO HS 30 days #30 tabs 03/12/24
thiamine HCl (vitamin B1) 100 mg tablet 100 mg PO DAILY 30 days #30 tabs 03/12/24
tiotropium bromide 18 mcg capsule with inhalation device 2 cap inhalation R DAILY 07/03/24
Home Medication Changes
Pending Results: No
Total time spent discharging patient (in min): 41
--- NOTE | 2024-07-06 12:42 | W.PN.NEPH.PH ---
Today's Communication / Plan
-
dc planning
Assessment/Plan
-
Impression:
Hyponatremia acute on chronic with a admission sodium of 121
Dementia at baseline
Cachexia and anorexia
Tobacco and alcohol dependence
Plan:
follow BMP
dc planning
-
-
Date of Service: July 06, 2024
CC / HPI / ROS
-
Chief Complaint:
hyponatremia
History of Present Illness:
sodium better at 136
BP stable
CPK improving
no fever
Review of Systems:
no n/v
no cp or sob
Labs
-
Labs:
WBC 8.0 10^3/uL (4.8-10.8) 07/06/24 07:43
RBC 3.85 10^6/uL (4.20-5.40) L 07/06/24 07:43
Hgb 11.2 g/dL (12.0-16.0) L 07/06/24 07:43
Hct 33.8 % (37.0-47.0) L 07/06/24 07:43
Plt Count 278 10^3/uL (130-400) 07/06/24 07:43
Sodium 136 mmol/L (135-145) 07/06/24 07:43
Potassium 3.9 mmol/L (3.5-5.1) 07/06/24 07:43
Chloride 104 mmol/L (98-107) 07/06/24 07:43
Carbon Dioxide 28 mmol/L (22-30) 07/06/24 07:43
BUN 8 mg/dl (7-17) 07/06/24 07:43
Creatinine 0.5 mg/dL (0.6-1.0) L 07/06/24 07:43
eGFR > 60.00 07/06/24 07:43
Glucose 93 mg/dl (70-99) 07/06/24 07:43
Calcium 8.2 mg/dl (8.4-10.2) L 07/06/24 07:43
Albumin 4.3 g/dl (3.5-5.0) 07/03/24 14:41
Physical Exam
-
Vital Signs:
Vital Signs
Temp Pulse Resp BP Pulse Ox
97.7 F 71 16 141/77 97
07/06/24 11:26 07/06/24 11:26 07/06/24 11:26 07/06/24 11:26 07/06/24 11:26
Cardiovascular:: Regular rate and rhythm
Respiratory:: Bilateral: CTA
Lung Excursion:: Normal
Abdomen:: Nontender and Soft
Bowel Sounds:: Normal
Extremity Edema:: None: Bilateral:
--- NOTE | 2024-07-06 13:18 | CM ---
Pt stable for d/c today. Therapy are not recommending any rehab needs
Spoke w/ Marlon/[facility] nurse telephone order supervisor to inform of d/c. Agreeable for pt to return
Spouse will transport pt at d/c.
IMM reviewed, copy on chart
[facility]
Report: [phone]
fax: [phone]
Plan: Return to [facility]
== END 2024-07-06 14:00 | DRG 640 ==
LOC: 4 WEST ACU 22:13
PROVIDERS: Emergency Medicine; Physician Assistant; ADMITTING PHYSICIAN Internal Medicine; ATTENDING PHYSICIAN Internal Medicine; CONSULT PHYSICIAN Internal Medicine Nephrology; EMERGENCY PHYSICIAN Emergency Medicine; FAMILY PHYSICIAN Internal Medicine
DX: E87.1 Hypo-osmolality and hyponatremia (principal); E43 Unspecified severe protein-calorie malnutrition; G93.41 Metabolic encephalopathy; Z68.1 Body mass index [BMI] 19.9 or less, adult; R64 Cachexia; T79.6XXA Traumatic ischemia of muscle, initial encounter; W19.XXXA Unspecified fall, initial encounter; F01.50 Vascular dementia, unspecified severity, without behavioral disturbance, psychotic disturbance, mood disturbance, and anxiety; E87.3 Alkalosis; R63.1 Polydipsia; R79.89 Other specified abnormal findings of blood chemistry; E86.1 Hypovolemia; F10.20 Alcohol dependence, uncomplicated; F17.200 Nicotine dependence, unspecified, uncomplicated; Z11.52 Encounter for screening for COVID-19; Z86.73 Personal history of transient ischemic attack (TIA), and cerebral infarction without residual deficits; Z90.10 Acquired absence of unspecified breast and nipple; Z85.3 Personal history of malignant neoplasm of breast; Z79.899 Other long term (current) drug therapy
CPT/HCPCS: 51701; 70450; 71046; 72125; 74177; 80048; 80053; 80306; 81003; 81015; 82010; 82077; 82533; 82550; 82977; 83605; 83930; 83935; 84300; 84443; 84484; 85025; 85027; 87040; 87086; 87502; 87811; 92610; 93005; 93306; 94640; 97162; 99285; Q9967

== ENCOUNTER → 2024-07-16 10:44 | Outpatient (REF) | payer MEDICARE, SELFPAY ==
[2024-07-16 11:50] LABS: Blood Urea Nitrogen 8 mg/dl (7-17); Calcium 8.9 mg/dl (8.4-10.2); Carbon Dioxide 29 mmol/L (22-30); Chloride 101 mmol/L (98-107); Glucose 103 mg/dl (70-99); Potassium 4.1 mmol/L (3.5-5.1); Sodium 138 mmol/L (135-145); eGFR > 60.00
== END ==
LOC: OLABSOL 10:44
PROVIDERS: ATTENDING PHYSICIAN Nurse Practitioner Adult Health
DX: R79.89 Other specified abnormal findings of blood chemistry (principal); R94.4 Abnormal results of kidney function studies; E22.2 Syndrome of inappropriate secretion of antidiuretic hormone
CPT/HCPCS: 36415; 80048

== ENCOUNTER → 2024-07-21 09:54 | Outpatient (REF) | payer MEDICARE, SELFPAY | LOC: OLABSOL 09:54 | PROVIDERS: ATTENDING PHYSICIAN Nurse Practitioner Adult Health | DX: R79.89 Other specified abnormal findings of blood chemistry (principal); R94.4 Abnormal results of kidney function studies; E22.2 Syndrome of inappropriate secretion of antidiuretic hormone | CPT/HCPCS: 84588 ==

== ENCOUNTER → 2024-07-23 11:23 | Outpatient (REF) | payer MEDICARE, SELFPAY ==
[2024-07-23 13:04] LABS: Blood Urea Nitrogen 15 mg/dl (7-17); Calcium 9.1 mg/dl (8.4-10.2); Carbon Dioxide 28 mmol/L (22-30); Chloride 100 mmol/L (98-107); Glucose 110 mg/dl (70-99); Potassium 5.1 mmol/L (3.5-5.1); Sodium 136 mmol/L (135-145); eGFR > 60.00
[2024-07-23 14:08] LABS: Osmolality Urine 100 mOsm/kg (300-900)
== END ==
LOC: OLABSOL 11:23
PROVIDERS: ATTENDING PHYSICIAN Nurse Practitioner Adult Health
DX: R94.4 Abnormal results of kidney function studies (principal)
CPT/HCPCS: 36415; 80048; 83935

== ENCOUNTER → 2024-08-04 10:28 | Outpatient (REF) | payer MEDICARE, SELFPAY ==
[2024-08-04 12:27] LABS: Blood Urea Nitrogen 8 mg/dl (7-17); Calcium 8.8 mg/dl (8.4-10.2); Carbon Dioxide 26 mmol/L (22-30); Chloride 98 mmol/L (98-107); Glucose 95 mg/dl (70-99); Potassium 4.6 mmol/L (3.5-5.1); Sodium 133 mmol/L (135-145); eGFR > 60.00
== END ==
LOC: OLABSOL 10:28
PROVIDERS: ATTENDING PHYSICIAN Nurse Practitioner Adult Health
DX: E87.1 Hypo-osmolality and hyponatremia (principal)
CPT/HCPCS: 36415; 80048

== ENCOUNTER → 2024-08-18 10:31 | Outpatient (REF) | payer MEDICARE, SELFPAY ==
[2024-08-18 11:57] LABS: Cortisol, Random 11.9 ug/dl
[2024-08-18 13:00] LABS: Osmolality Serum 286 mOsm/kg (275-300)
[2024-08-18 13:18] LABS: Blood Urea Nitrogen 10 mg/dl (7-17); Calcium 9.4 mg/dl (8.4-10.2); Carbon Dioxide 28 mmol/L (22-30); Chloride 100 mmol/L (98-107); Glucose 100 mg/dl (70-99); Potassium 4.2 mmol/L (3.5-5.1); Sodium 137 mmol/L (135-145); eGFR > 60.00
== END ==
LOC: OLABSOL 10:31
PROVIDERS: ATTENDING PHYSICIAN Nurse Practitioner Adult Health
DX: E87.1 Hypo-osmolality and hyponatremia (principal)
CPT/HCPCS: 36415; 80048; 82533; 83930

== ENCOUNTER → 2024-09-02 11:51 | Outpatient (REF) | payer MEDICARE, SELFPAY ==
[2024-09-02 17:46] LABS: Urine Albumin 2+ (Neg - Trace); Urine Bilirubin Negative (Negative); Urine Character Clear (Clear); Urine Color Yellow; Urine Glucose Negative (Negative); Urine Ketone Negative (Negative); Urine Leukocyte 3+ (Negative); Urine Nitrite Negative (Negative); Urine Occult Blood 4+ (Negative); Urine Urobilinogen Negative (Neg - 1+)
[2024-09-02 17:56] LABS: Urine Squamous Cell 0-2 /LPF (Few)
[2024-09-02 17:58] LABS: Urine Bacteria Moderate (Negative); Urine White Cell 80-90 /HPF (0-5)
== END ==
LOC: OLABSOL 11:51
PROVIDERS: ATTENDING PHYSICIAN Nurse Practitioner Adult Health
DX: N39.0 Urinary tract infection, site not specified (principal)
CPT/HCPCS: 81003; 81015; 87077; 87086; 87186

== ENCOUNTER → 2024-09-08 09:21 | Outpatient (REF) | payer MEDICARE, SELFPAY ==
[2024-09-08 11:45] LABS: Blood Urea Nitrogen 6 mg/dl (7-17); Calcium 9.2 mg/dl (8.4-10.2); Carbon Dioxide 27 mmol/L (22-30); Chloride 104 mmol/L (98-107); Glucose 99 mg/dl (70-99); Potassium 4.5 mmol/L (3.5-5.1); Sodium 140 mmol/L (135-145); eGFR > 60.00
== END ==
LOC: OLABSOL 09:21
PROVIDERS: ATTENDING PHYSICIAN Nurse Practitioner Adult Health
DX: R94.4 Abnormal results of kidney function studies (principal)
CPT/HCPCS: 36415; 80048

== ENCOUNTER 2024-09-19 23:10 | Inpatient (IN) | payer MEDICARE, SELFPAY ==
[2024-09-19] VITALS (11 sets, daily range): BP systolic 79–144; BP diastolic 46–92
[2024-09-19 21:12] LABS: Glucose - Point of Care 148 mg/dl (70-99)
[2024-09-19 21:18] LABS: % Basophils 0.4 % (0-2); % Eosinophils 0.6 % (0-6); % Lymphocytes 22.6 % (20.5-51.1); % Monocytes 6.6 % (1.7-9.3); % Neutrophils 68.8 % (42.2-75.2); Absolute Basophils 0.1 10^3/uL (0-0.2); Absolute Eosinophils 0.1 10^3/uL (0-0.7); Absolute Immature Granulocytes 0.2 10^3/uL (0-0.05); Absolute Lymphocytes 4.4 10^3/uL (1.2-3.4); Absolute Monocytes 1.3 10^3/uL (0.1-0.6); Absolute Neutrophils 13.5 10^3/uL (1.4-6.5); Hematocrit 36.1 % (37.0-47.0); Hemoglobin 11.7 g/dL (12.0-16.0); Mean Corp Hgb Conc. 32.4 g/dL (33.0-37.0); Mean Corpuscular Hgb 28.6 pg (27.0-31.0); Mean Corpuscular Volume 88.3 fL (81.0-99.0); Mean Platelet Volume 8.5 fL (7.4-10.4); Nucleated Red Blood Cells % 0.2 %; Platelet Count 313 10^3/uL (130-400); Red Blood Cell Count 4.09 10^6/uL (4.20-5.40); Red Cell Dist. Width 13.6 % (11.5-14.5); White Blood Cell Count 19.5 10^3/uL (4.8-10.8)
[2024-09-19] MEDS: ATIVAN 2 MG IV (21:28)
[2024-09-19] MEDS: KEPPRA 1000 MG IV (21:28)
[2024-09-19 21:32] LABS: Venous Blood Gas B.E. -11.6 mmol/L (-4 to +4); Venous Blood Gas HCO3 17.9 mmol/L (22-27); Venous Blood Gas O2 Sat % 96.6 %; Venous Blood Gas pCO2 55 mmHg (35-48); Venous Blood Gas pO2 96 mmHg (30-50)
[2024-09-19 21:36] LABS: Venous Blood Gas pH 7.12 (7.32-7.43)
[2024-09-19 21:37] LABS: ALT (SGPT) 15 U/L (0-35); AST (SGOT) 22 U/L (14-36); Alcohol < 10 mg/dl; Alkaline Phosphatase 82 U/L (38-126); Blood Urea Nitrogen 17 mg/dl (7-17); Calcium 8.5 mg/dl (8.4-10.2); Carbon Dioxide 18 mmol/L (22-30); Chloride 84 mmol/L (98-107); Glucose 134 mg/dl (70-99); Potassium 3.8 mmol/L (3.5-5.1); Sodium 118 mmol/L (135-145); Total Bilirubin 1.8 mg/dl (0.2-1.3); Total Protein 6.5 g/dl (6.3-8.2); eGFR > 60.00
--- NOTE | 2024-09-19 22:02 | ED.GENMED ---
History of Present Illness
<Zack Santa PA-C - Last Filed: 09/19/24 22:52>
General
Chief Complaint: Seizure
Time Seen by Provider: 09/19/24 21:12
History of Present Illness
History of Present Illness:
69-year-old female with history of SIADH and vascular dementia presents to the emergency department for evaluation of altered mental status. Resides in a nursing facility and reportedly began having hallucinations and paranoia earlier today. En
route to the hospital she was conversant but confused at baseline according to EMS personnel, on arrival to the ED she had a witnessed tonic-clonic seizure lasting less than 1 minute by nursing staff. On my evaluation the patient is postictal with
left beating nystagmus she is not responsive to verbal commands. No pain response to nailbed pressure x 4 extremities.
Review of Systems
<Zack Santa PA-C - Last Filed: 09/19/24 22:52>
Review of Systems
Allergies reviewed?: Yes
All Other Systems: ROS reviewed and negative except as documented in HPI and ROS
Phy Exam
<Zack Santa PA-C - Last Filed: 09/19/24 22:52>
Physical Exam
Physical Exam:
GEN: Thin, frail, unresponsive
HEENT: Oral mucosa dry, left beating horizontal nystagmus bilaterally, no scleral icterus
Cardiac: Tachycardic, regular
Lung: Coarse rhonchi heard throughout all lung trotter, tachypneic
MSK: No gross deformity or injuries
Skin: Pale, no petechiae
Neuro: Unresponsive, GCS of 6
Course
<Zack Santa PA-C - Last Filed: 09/19/24 22:52>
Orders/Labs/Results
Orders:
Orders
09/19/24 21:07
Electrocardiogram (*1) Urgent
Reason for Study: Other
Other Reason for Exam: seizure
EKG- Treatment ONCE
09/19/24 21:12
CT Head W/o Iv Contrast Urgent
Comment:
Reason For Exam: AMS
Alcohol Urgent
Complete Blood Count/With Diff Urgent
Comprehensive Metabolic Panel Urgent
Serum Osmolality Urgent
09/19/24 21:13
Urinalysis Reflex To Culture Urgent
Date Specimen was Collected: 09/19/24
Time Specimen was Collected: 22:50
CR Chest Portable - 1 View Urgent
Comment:
Reason For Exam: AMS
Reason Study Needs to be Portable: Other
09/19/24 21:16
Venous Blood Gas Urgent
%Oxygen/Room Air: 90
09/19/24 21:26
Levetiracetam Injectable [Keppra] 1,000 mg .ROUTE .STK-MED ONE
Levetiracetam Injectable [Keppra] 1,000 mg IV NOW STA
Lorazepam [Ativan] 2 mg IV NOW STA
09/19/24 21:40
Lorazepam [Ativan] 2 mg .ROUTE .STK-MED ONE
09/19/24 22:15
3% Sodium Chloride 100 ml [Sodium Chloride 3%] 100 ml IV ONCE
09/19/24 22:29
Urine Sodium Urgent
Date Specimen was Collected: 09/19/24
Time Specimen was Collected: 22:50
09/19/24 22:44
Arterial Blood Gas Urgent
%Oxygen/Room Air: abg
09/19/24 22:51
Admit/Transfer Patient As Directed
Co-Sign Provider:
Level of Care: Inpatient admission
Assign to:: ICU
Physician / Group: emir
Diagnosis: hyponatremia
Reason for Hospitalization: hyponatremia
Expected length of stay greater than two midnights?: Yes
ELOS- Estimated Length of Stay in days: 2
I certify the patient meets the requirements for IP care: Yes
PRN Pain Medication Management As Directed
May give lesser potent ordered pain med per pt: Yes
preference::
Protocol:: Medication orders for pain may be administered in a
manner that supports deferring to patient preference
when the pt is:
- Requesting an ordered lesser potent pain medication.
Least to most potent pain medications are defined
as: acetaminophen < NSAID < tramadol < opioids
(morphine, oxycodone, hydromorphone).
- Requesting a lesser dose of the same medication IF
ORDERED.
- Requesting a less intrusive route of administration
if both routes are prescribed by the provider (PO <
IV).
09/19/24 22:52
Code Status As Directed
Resuscitation Status: Do not resuscitate
Reached after discussion with pt or family/Healthcare POA: Yes
DNR Bracelet Application ONCE
09/19/24 22:53
Lactate Level [Lactic Acid] Urgent
09/19/24 22:54
Basic Metabolic Panel Urgent
Salicylate Urgent
Tylenol [Acetaminophen] Urgent
09/19/24 22:55
Sodium Bicarbonate 50 meq IV NOW STA
09/19/24 23:00
Flush (0.9% Sodium Chloride) [Flush (Nss)] See Dose Instructions IV PER PROTOCOL
Abnormal Lab Results
09/19/24 09/19/24 09/19/24
21:10 21:12 21:16
WBC 19.5 H 10^3/uL
(4.8-10.8)
RBC 4.09 L 10^6/uL
(4.20-5.40)
Hgb 11.7 L g/dL
(12.0-16.0)
Hct 36.1 L %
(37.0-47.0)
MCHC 32.4 L g/dL
(33.0-37.0)
Abs Immat Gran (auto) 0.2 H 10^3/uL
(0-0.05)
Absolute Neuts (auto) 13.5 H 10^3/uL
(1.4-6.5)
Absolute Lymphs (auto) 4.4 H 10^3/uL
(1.2-3.4)
Absolute Monos (auto) 1.3 H 10^3/uL
(0.1-0.6)
Immature Gran % 1.0 H %
(0-0.5)
VBG pH 7.12 L*
(7.32-7.43)
VBG pCO2 55 H mmHg
(35-48)
VBG pO2 96 H mmHg
(30-50)
VBG HCO3 17.9 L mmol/L
(22-27)
Sodium 118 L* mmol/L
(135-145)
Chloride 84 L mmol/L
(98-107)
Carbon Dioxide 18 L mmol/L
(22-30)
Creatinine 0.5 L mg/dL
(0.6-1.0)
Glucose 134 H mg/dl
(70-99)
Serum Osmolality 252 L mOsm/kg
(275-300)
Total Bilirubin 1.8 H mg/dl
(0.2-1.3)
POC Glucose 148 H mg/dl
(70-99)
09/19/24 21:12
Vital Signs
Initial and Last Documented VS:
Initial Vital Signs
BP Pulse Ox
144/86 75
09/19/24 21:05 09/19/24 21:05
Last Documented Vital Signs
Temp Pulse Resp BP Pulse Ox
98.0 F 90 12 132/92 100
09/19/24 21:11 09/19/24 22:00 09/19/24 22:00 09/19/24 21:31 09/19/24 22:00
<Zaire Bridges MD - Last Filed: 09/19/24 22:57>
Orders/Labs/Results
Orders:
Orders
09/19/24 21:07
Electrocardiogram (*1) Urgent
Reason for Study: Other
Other Reason for Exam: seizure
EKG- Treatment ONCE
09/19/24 21:12
CT Head W/o Iv Contrast Urgent
Comment:
Reason For Exam: AMS
Alcohol Urgent
Complete Blood Count/With Diff Urgent
Comprehensive Metabolic Panel Urgent
Serum Osmolality Urgent
09/19/24 21:13
Urinalysis Reflex To Culture Urgent
Date Specimen was Collected: 09/19/24
Time Specimen was Collected: 22:50
CR Chest Portable - 1 View Urgent
Comment:
Reason For Exam: AMS
Reason Study Needs to be Portable: Other
09/19/24 21:16
Venous Blood Gas Urgent
%Oxygen/Room Air: 90
09/19/24 21:26
Levetiracetam Injectable [Keppra] 1,000 mg .ROUTE .STK-MED ONE
Levetiracetam Injectable [Keppra] 1,000 mg IV NOW STA
Lorazepam [Ativan] 2 mg IV NOW STA
09/19/24 21:40
Lorazepam [Ativan] 2 mg .ROUTE .STK-MED ONE
09/19/24 22:15
3% Sodium Chloride 100 ml [Sodium Chloride 3%] 100 ml IV ONCE
09/19/24 22:29
Urine Sodium Urgent
Date Specimen was Collected: 09/19/24
Time Specimen was Collected: 22:50
09/19/24 22:44
Arterial Blood Gas Urgent
%Oxygen/Room Air: abg
09/19/24 22:51
Admit/Transfer Patient As Directed
Co-Sign Provider:
Level of Care: Inpatient admission
Assign to:: ICU
Physician / Group: emir
Diagnosis: hyponatremia
Reason for Hospitalization: hyponatremia
Expected length of stay greater than two midnights?: Yes
ELOS- Estimated Length of Stay in days: 2
I certify the patient meets the requirements for IP care: Yes
PRN Pain Medication Management As Directed
May give lesser potent ordered pain med per pt: Yes
preference::
Protocol:: Medication orders for pain may be administered in a
manner that supports deferring to patient preference
when the pt is:
- Requesting an ordered lesser potent pain medication.
Least to most potent pain medications are defined
as: acetaminophen < NSAID < tramadol < opioids
(morphine, oxycodone, hydromorphone).
- Requesting a lesser dose of the same medication IF
ORDERED.
- Requesting a less intrusive route of administration
if both routes are prescribed by the provider (PO <
IV).
09/19/24 22:52
Code Status As Directed
Resuscitation Status: Do not resuscitate
Reached after discussion with pt or family/Healthcare POA: Yes
DNR Bracelet Application ONCE
09/19/24 22:53
Lactate Level [Lactic Acid] Urgent
09/19/24 22:54
Basic Metabolic Panel Urgent
Salicylate Urgent
Tylenol [Acetaminophen] Urgent
09/19/24 22:55
Sodium Bicarbonate 50 meq IV NOW STA
09/19/24 23:00
Flush (0.9% Sodium Chloride) [Flush (Nss)] See Dose Instructions IV PER PROTOCOL
Abnormal Lab Results
09/19/24 09/19/24 09/19/24
21:10 21:12 21:16
WBC 19.5 H 10^3/uL
(4.8-10.8)
RBC 4.09 L 10^6/uL
(4.20-5.40)
Hgb 11.7 L g/dL
(12.0-16.0)
Hct 36.1 L %
(37.0-47.0)
MCHC 32.4 L g/dL
(33.0-37.0)
Abs Immat Gran (auto) 0.2 H 10^3/uL
(0-0.05)
Absolute Neuts (auto) 13.5 H 10^3/uL
(1.4-6.5)
Absolute Lymphs (auto) 4.4 H 10^3/uL
(1.2-3.4)
Absolute Monos (auto) 1.3 H 10^3/uL
(0.1-0.6)
Immature Gran % 1.0 H %
(0-0.5)
VBG pH 7.12 L*
(7.32-7.43)
VBG pCO2 55 H mmHg
(35-48)
VBG pO2 96 H mmHg
(30-50)
VBG HCO3 17.9 L mmol/L
(22-27)
Sodium 118 L* mmol/L
(135-145)
Chloride 84 L mmol/L
(98-107)
Carbon Dioxide 18 L mmol/L
(22-30)
Creatinine 0.5 L mg/dL
(0.6-1.0)
Glucose 134 H mg/dl
(70-99)
Serum Osmolality 252 L mOsm/kg
(275-300)
Total Bilirubin 1.8 H mg/dl
(0.2-1.3)
POC Glucose 148 H mg/dl
(70-99)
09/19/24 21:12
Vital Signs
Initial and Last Documented VS:
Initial Vital Signs
BP Pulse Ox
144/86 75
09/19/24 21:05 09/19/24 21:05
Last Documented Vital Signs
Temp Pulse Resp BP Pulse Ox
98.0 F 90 12 132/92 100
09/19/24 21:11 09/19/24 22:00 09/19/24 22:00 09/19/24 21:31 09/19/24 22:00
<Zack Santa PA-C - Last Filed: 09/19/24 22:52>
MDM/Problems Addressed
MDM/Problems Addressed:
69-year-old female presents with altered mental status, on arrival had multiple witnessed seizures. She is found to be severely hyponatremic, subsequent head CT showed no evidence of intracranial hemorrhage thus she was given hypertonic saline
bolus due to the seizures. After the initial seizures she was given Ativan and levetiracetam, but became essentially unresponsive at this point with a GCS of 3 however was maintaining her airway. Her was made aware of the gravity of the
situation and he authorized a DO NOT RESUSCITATE/DO NOT INTUBATE order given her severe chronic disease. was present briefly at bedside and I personally reviewed the clinical information with him and he again reiterated that he would not
want her placed on a ventilator. Case was reviewed with nephrology who agreed with the hypertonic bolus and recommended repeat BMP approximate 45 minutes after bolus administration. Patient be admitted to the hospitalist service intensive care
unit for further management
<Zack Santa PA-C - Last Filed: 09/19/24 22:52>
*Critical Care Note
Total Time (30-74mins, 75-104mins- exclusive of procedures): 90 minutes
comment:
Critical care time: 90 minutes
Critical care time was exclusive of: Separately billable procedures, treating other patients, and teaching time
Critical care was necessary to treat or prevent imminent or life-threatening deterioration of the following conditions: Hyponatremia with seizures
Critical care time spent personally by me on the following activities:
[x] Review of old charts
[x] Obtaining history from patient or surrogate
[x] Ordering and review of the laboratory studies
[x] Ordering and review of radiographic studies
[x] Ordering and performing treatments and interventions
[x] Patient patient's response to treatment
[x] Development of treatment plan with patient or surrogate
ED Attending Note
<Zack Santa PA-C - Last Filed: 09/19/24 22:52>
-
Portions of this chart may have been created with voice recognition software.� Occasional wrong word or��sound alike� substitutions may have occurred due to the inherent limitations of voice recognition software.
<Zaier Bridges MD - Last Filed: 09/19/24 22:57>
ED Attending Note
Patient seen and examined by attending physician: Yes
I performed the substantive portion of visit, reviewed & personally made and approve the management plan that is documented in note by myself or MARIIA.: Yes
ED Attending Note:
Patient presents with a change in mental status and confusion. Upon arrival to the ER patient had a grand mal seizure lasting about a minute. Postictal. Airway was maintained.
Tachycardic. Remains unresponsive postictally. Patient then had a second seizure lasting about 2 minutes. Grand mal in nature. At that time Ativan 2 mg was given along with Keppra. Sodium returned at 118. Hypertonic saline bolus was ordered.
Discussed with nephrology. CT scan is stable. Previous records workup reviewed. History of hyponatremia
lungs: coarse rhonchi.
post ictal; tachy and mildly irregular.
EKG tachycardic wide QRS. Episodes of tachycardia at times appeared possibly V. tach related but more likely rate related with the wide QRS complex. Discussed with patient's . Agrees with no intubation
cc total 90 minutes with mariia.
Discharge Plan
Departure
Patient Disposition: Admit
Date of Disposition: 09/19/24
Time of Disposition: 22:18
Admit to: ICU
Presentation/result/management discussed w/ accepting MD/DO: Hospitalist
Discharge Problem:
Acute hyponatremia, Seizure
Prescriptions:
No Action
thiamine HCl (vitamin B1) 100 mg Tablet
100 mg PO DAILY 30 Days Qty: 30 1RF
mirtazapine 15 mg Tablet
15 mg PO HS 30 Days Qty: 30 1RF
tiotropium bromide 18 mcg Capsule, W/Inhalation Device
2 cap INHALATION R DAILY
Referrals:
Bk Barnett MD [Family Provider] -
Interventions
Interventions:
*ED COVID-19 Vaccine History Last Done: 09/19/24 21:11
ED- Cardiac Assessment Last Done: 09/19/24 21:35
ED- Neurological Assessment Last Done: 09/19/24 21:35
ED- Pulmonary Assessment Last Done: 09/19/24 21:35
Discharge Date and Time
Print Language: TELUGU
[2024-09-19] MEDS: SODIUM CHLORIDE 3% 100 IV (22:17)
[2024-09-19 22:18] LABS: Osmolality Serum 252 mOsm/kg (275-300)
--- NOTE | 2024-09-19 22:54 | HPS.HSE ---
Family Physician
-
Family Physician: Bk Barnett
Chief Complaint
-
altered mental status
History of Present Illness
69-year-old female past medical history of hyponatremia, CVA, vascular dementia, former alcohol use disorder, protein calorie malnutrition, breast cancer status postmastectomy/chemotherapy and radiation, presenting with altered mental status.
Patient resides at [facility] and was having hallucinations and paranoia earlier today. En route to the hospital she was conversant but confused at baseline as per EMS. On arrival to the emergency room she had a witnessed tonic-clonic seizure lasting
less than 1 minute here. She had another seizure and was given 2 mg of Ativan afterwards. She was noted to be postictal afterwards with left-sided nystagmus. Since receiving the Ativan she not been responsive to verbal stimuli.
Medical History
Past Medical History
Past Medical History: Reports Other (hyponatremia, CVA, vascular dementia, former alcohol use disorder, protein calorie malnutrition, breast cancer status postmastectomy/chemotherapy and radiation)
Past Surgical History: Reports None
Social History
Tobacco: Non-smoker
Alcohol: None
Drug: None
Family History
Family History: Not pertinent
Allergies / Home Medications
Allergies reflects when Allergies were last updated in [employer].
Home Medications with original date entered in [employer]
Allergy/Medication List:
Allergies
Allergy/AdvReac Type Severity Reaction Status Date / Time
No Known Allergies Allergy Verified 09/19/24 21:08
Home Medications
mirtazapine 15 mg tablet 15 mg PO HS 30 days #30 tabs 03/12/24
thiamine HCl (vitamin B1) 100 mg tablet 100 mg PO DAILY 30 days #30 tabs 03/12/24
tiotropium bromide 18 mcg capsule with inhalation device 2 cap inhalation R DAILY 07/03/24
Review of Systems
-
History Source: Patient
A 12 point ROS was completed and negative except as noted: Yes
Constitutional: Reports No Symptoms
EENT: Reports No Symptoms
Respiratory: Reports No Symptoms
Cardiac: Reports No Symptoms
Abdomen/GI: Reports No Symptoms
: Reports No Symptoms
Musculoskeletal: Reports No Symptoms
Skin: Reports No Symptoms
Neurological: Reports No Symptoms
Endocrine: Reports No Symptoms
Hematologic/Lymphatic: Reports No Symptoms
Psych: Reports No Symptoms
Physical Exam
Vital Signs
Vital Signs
Temp Pulse Resp BP Pulse Ox
98.0 F 90 12 132/92 100
09/19/24 21:11 09/19/24 22:00 09/19/24 22:00 09/19/24 21:31 09/19/24 22:00
Physical Exam
General: Well Developed, Well Nourished and No Apparent Distress
HEENT: NormoCephalic, Moist mucous membranes and Atraumatic
Respiratory: Clear
Cardiac: S1/S2 and Regular Rhythm; No Murmur or Rub
GI: Soft, Non Tender, Non Distended and Normal Bowel Sounds; No Organomegaly
Rectal: Deferred by Provider
Musculoskeletal: No Clubbing, No Cyanosis and No Edema
Skin: No Rash
Neuro: Nonfocal/grossly intact
Laboratory Results
-
09/19/24 21:12
Laboratory Results
Total Bilirubin 1.8 mg/dl (0.2-1.3) H 09/19/24 21:12
AST 22 U/L (14-36) 09/19/24 21:12
ALT 15 U/L (0-35) 09/19/24 21:12
Alkaline Phosphatase 82 U/L (38-126) 09/19/24 21:12
Data Reviewed
-
Lab Data: Labs Reviewed by me
Old Records: Reviewed
Impression/Plan
-
IMPRESSION:
PLAN:
# Acute metabolic encephalopathy secondary to hyponatremia
- Sodium 118
-CT head shows moderate-sized chronic transcortical infarct in the right middle cerebral artery
- 3% hypertonic saline bolus given we will plan to repeat BMP 45 minutes afterwards with goal change of 3-4
-urine osm 100, check urine sodium
- Nephrology consult
# Hyponatremia associated seizure
-Leukocytosis likely from seizure
- Keppra 1000 mg given, continue 500 twice daily
# Combined anion gap and non-anion gap metabolic acidosis and respiratory acidosis
-pH of 7.12
-Metabolic acidosis would be expected after seizure
-As per VBG, will check ABG to evaluate for worsening respiratory acidosis which would not be expected with seizure,
-Patient asleep but maintaining airway, currently on nonrebreather
- Check lactate
- Alcohol level negative
- Chest x-ray appears unremarkable, report pending
- Check Tylenol, salicylate level
- Metabolic acidosis component likely secondary to seizure
- Bicarb push
# Hypoxemia during seizure
- Placed on nonrebreather during
- Attempted to be weaned off now
- Possible aspiration although chest x-ray not suggestive
History of CVA
Vascular dementia
Former alcohol use
-not drinking since in [place]
Protein calorie malnutrition
Breast cancer status post mastectomy/chemotherapy/radiation
DNR/DNI
DVT prophylaxis�heparin
N.p.o.
[2024-09-19 23:15] LABS: Urine Sodium 17 mmol/L (30-90)
[2024-09-19] MEDS: SODIUM BICARBONATE 50 MEQ IV (23:24)
[2024-09-19 23:35] LABS: B.E. -1.4 mmol/L; HCO3 22.7 mmol/L (21-28); O2 Saturation % 99.2 % (94-98); PCO2 35 mmHg (32-35); PO2 117 mmHg (83-108); pH 7.42 (7.35-7.45)
[2024-09-19 23:38] LABS: Lactic Acid 3.5 mmol/L (0.7-2.0)
[2024-09-19 23:44] LABS: Acetaminophen < 10 ug/ml (10-30); Blood Urea Nitrogen 19 mg/dl (7-17); Calcium 7.6 mg/dl (8.4-10.2); Carbon Dioxide 24 mmol/L (22-30); Chloride 81 mmol/L (98-107); Glucose 178 mg/dl (70-99); Potassium 3.4 mmol/L (3.5-5.1); Salicylate < 1.0 mg/dl (2.0-20.0); Sodium 114 mmol/L (135-145); eGFR > 60.00
[2024-09-20] VITALS (82 sets, daily range): BP systolic 76–124; BP diastolic 47–99; BMI 20.2
--- NOTE | 2024-09-20 00:30 | PTCARENOTE ---
Patient received from the ED via stretcher accompanied by RN. Transferred and admitted to ICU bed 3351. See admission assessment charted. Unable to complete some admission information due to no family available and patient history of dementia with
current obtunded status. Patient briefly opens eyes but does not follow commands. Complete CHG bath given and fresh linens. BUL clear anteriorly, bilateral bases diminished with fine crackles. S1S2 regular but distant. Abdomen soft. Purewick placed.
Positive pulses x 4 extremities, no edema. Labwork redrawn and sent per BENNY العراقي. IV sites right FA #18 and right AC #20 flush easily, right FA site ecchymotic. Bed in low and locked position, call mari in reach.
[2024-09-20] MEDS: ZOSYN 50 IV ×4 (01:01→17:55)
[2024-09-20] MEDS: LEVOPHED 250 IV ×2 (01:22→23:12)
[2024-09-20 01:28] LABS: Lactic Acid 2.6 mmol/L (0.7-2.0)
[2024-09-20 01:32] LABS: Blood Urea Nitrogen 20 mg/dl (7-17); Carbon Dioxide 25 mmol/L (22-30); Chloride 82 mmol/L (98-107); Estimated Creatinine Clearance 72 ml/min; Glucose 149 mg/dl (70-99); Magnesium 1.7 mg/dl (1.6-2.3); Phosphorus 2.8 mg/dl (2.5-4.5); Potassium 3.7 mmol/L (3.5-5.1); Sodium 119 mmol/L (135-145); eGFR > 60.00
--- NOTE | 2024-09-20 02:00 | PTCARENOTE ---
Lab results noted, new orders received. KCL and Mag sulfate IVPB given per order. Hypertonic saline at 20cc/hr started after new IV inserted Left FA.
--- NOTE | 2024-09-20 02:20 | W.PN.SEPSIS ---
Sepsis
Vital Signs
Temp Pulse Resp BP Pulse Ox
97.7 F 80 15 87/55 100
09/20/24 00:30 09/20/24 01:02 09/20/24 01:02 09/20/24 01:02 09/20/24 01:02
Physical Exam
Physical Exam:
A focused exam was performed after fluid resuscitation.
Capillary Refill
Bilateral Upper Extremity:
Lupe Time: Less than 3 sec
Bilateral Lower Extremity:
Lupe Time: Less than 3 sec
Pulse Evaluation
Bilateral Radial:
Pulse Evaluation: Present
Bilateral Dorsalis Pedis:
Pulse Evaluation: Present
[2024-09-20] MEDS: MAGNESIUM SULFATE 102 GRAMS IV (02:30)
[2024-09-20] MEDS: SODIUM CHLORIDE 3% 250 IV (02:30)
[2024-09-20] MEDS: KCL 160 MEQ IV (02:34)
--- NOTE | 2024-09-20 02:54 | W.PN.UPDATE ---
Update Note
Progress Note Update
09/20/24
0100- Discussed BMP results with Dr. Cronin, printing plate maker. Repeat Na, inconsistent that Na post intervention would be less (was 118 and now 114) Plan is to repeat BMP now STAT. Results of BMP Na was 119, plan to start hypertonic saline 3% at
20mls/hr. Continue to trend Na with serial BMPs.
[2024-09-20 03:34] LABS: Urine Albumin Negative (Neg - Trace); Urine Bilirubin Negative (Negative); Urine Character Clear (Clear); Urine Color Yellow; Urine Glucose Negative (Negative); Urine Ketone Negative (Negative); Urine Leukocyte Negative (Negative); Urine Nitrite Negative (Negative); Urine Occult Blood Negative (Negative); Urine Specific Gravity 1.005 (<1.030); Urine Urobilinogen Negative (Neg - 1+)
--- NOTE | 2024-09-20 04:30 | PTCARENOTE ---
Pt with episodes of wakefulness, trying to climb OOB. She is not following direction. Still groggy. Good UO with purewick. Essentially no other change in pt assessment. BP stable, Levophed gtt off. Sats 100% on 2L/nc, placed on RA.
[2024-09-20 06:52] LABS: % Basophils 0.2 % (0-2); % Eosinophils 0.2 % (0-6); % Immature Granulocytes 0.6 % (0-0.5); % Monocytes 7.1 % (1.7-9.3); % Neutrophils 78.9 % (42.2-75.2); Absolute Immature Granulocytes 0.1 10^3/uL (0-0.05); Absolute Lymphocytes 1.7 10^3/uL (1.2-3.4); Absolute Monocytes 0.9 10^3/uL (0.1-0.6); Absolute Neutrophils 10.4 10^3/uL (1.4-6.5); Hematocrit 36.7 % (37.0-47.0); Hemoglobin 12.8 g/dL (12.0-16.0); Mean Corp Hgb Conc. 34.9 g/dL (33.0-37.0); Mean Corpuscular Volume 83.2 fL (81.0-99.0); Mean Platelet Volume 8.7 fL (7.4-10.4); Nucleated Red Blood Cells % 0 %; Platelet Count 351 10^3/uL (130-400); Red Blood Cell Count 4.41 10^6/uL (4.20-5.40); Red Cell Dist. Width 13.6 % (11.5-14.5); White Blood Cell Count 13.1 10^3/uL (4.8-10.8)
--- NOTE | 2024-09-20 07:00 | PTCARENOTE ---
Essentially no change in patient's physical assessment except patient's IV sites are leaking. New IV was started on Left FA #22. Now with IV sites x 2 left forearm. IV sites right arm x 2 discontinued, catheter intact, easy bruising. Remains
lethargic but pulls away from cares.
[2024-09-20 07:06] LABS: Lactic Acid 1.8 mmol/L (0.7-2.0)
[2024-09-20 07:18] LABS: ALT (SGPT) 14 U/L (0-35); AST (SGOT) 25 U/L (14-36); Albumin 3.7 g/dl (3.5-5.0); Alkaline Phosphatase 71 U/L (38-126); Blood Urea Nitrogen 14 mg/dl (7-17); Calcium 8.1 mg/dl (8.4-10.2); Carbon Dioxide 27 mmol/L (22-30); Chloride 94 mmol/L (98-107); Estimated Creatinine Clearance 72 ml/min; Glucose 116 mg/dl (70-99); Magnesium 2.2 mg/dl (1.6-2.3); Potassium 4.4 mmol/L (3.5-5.1); Sodium 130 mmol/L (135-145); Total Protein 6.3 g/dl (6.3-8.2); eGFR > 60.00
[2024-09-20] MEDS: KEPPRA 500 MG IV ×2 (07:40→20:03)
[2024-09-20] MEDS: HEPARIN 5000 UNITS SC ×2 (07:42→20:03)
[2024-09-20] MEDS: D5W 1000 IV (08:45)
[2024-09-20] MEDS: DDAVP 50.5 MCG IV (09:11)
--- NOTE | 2024-09-20 09:30 | PTCARENOTE ---
Updated medical insurance claims processor. Levophed restarted due to low BP/MAP. Patient family updated.
--- NOTE | 2024-09-20 10:10 | W.CON.NEPH ---
Consultation
-
Date/Time Consultation Requested: 09/20/2024 9 AM
Date/Time Consultation Performed: 09/20/2024 10 AM
Requesting Provider: Dr. Francisco
Performing Provider: Dr. Valadez
Reason for Consultation: Hyponatremia
Medical History
-
Chief Complaint: Seizure
History of Present Illness:
68-year-old female w/ history dementia presenting to the emergency department via EMS from nursing facility with change in mental status with paranoia and hallucinations. On arrival she had a witnessed tonic-clonic seizure and a second seizure not
long after. Sodium was noted to be 114 and she was given a bolus of hypertonic saline. This morning her sodium level was 130 and she was changed to D5W. Patient unable to contribute much to history given dementia. She was also hypotensive and
now on Levophed in the ICU.
and son were at the bedside today and they do report that she drinks easily a gallon of water per day but has a very good appetite otherwise as well.
She is currently critically ill in the ICU
Past Medical History
Breast cancer status post mastectomy chemotherapy and radiation in 1989
Stroke
Vascular dementia
Social History
Tobacco: Smoker
Alcohol: Daily
Family History
No CKD
Allergies / Home Medications
Allergy/AdvReac Type Severity Reaction Status Date / Time
No Known Allergies Allergy Verified 09/19/24 21:08
�Medication �Instructions �Recorded �Confirmed �Type
mirtazapine 15 mg tablet 15 mg PO HS 30 days #30 tabs 03/12/24 07/03/24 Rx
thiamine HCl (vitamin B1) 100 mg 100 mg PO DAILY 30 days #30 tabs 03/12/24 07/03/24 Rx
tablet
tiotropium bromide 18 mcg capsule 2 cap inhalation R DAILY 07/03/24 07/03/24 History
with inhalation device
Review of Systems
-
Patient lethargic unresponsive
Unable to obtain full review of systems at this time due to: Patient Non Verbal
All other systems: Negative unless noted
Physical Exam
Vital Signs
Vital Signs
Temp Pulse Resp BP Pulse Ox
97.6 F 65 15 86/52 99
09/20/24 03:30 09/20/24 08:30 09/20/24 08:30 09/20/24 08:30 09/20/24 08:30
Lab Results
WBC 13.1 10^3/uL (4.8-10.8) H 09/20/24 06:19
RBC 4.41 10^6/uL (4.20-5.40) 09/20/24 06:19
Hgb 12.8 g/dL (12.0-16.0) 09/20/24 06:19
Hct 36.7 % (37.0-47.0) L 09/20/24 06:19
Plt Count 351 10^3/uL (130-400) 09/20/24 06:19
eGFR Cancelled 09/20/24 18:00
Phosphorus 2.8 mg/dl (2.5-4.5) 09/20/24 00:56
Albumin 3.7 g/dl (3.5-5.0) 09/20/24 06:19
Physical Exam
Patient is in no distress. Mood and affect, insight and judgment could not be assessed. Pupils are equal round and reactive to light, extraocular movements could not be assessed, sclera were anicteric. Hearing could not be assessed , ears and nose
are intact. Oropharynx was clear. Neck was supple with trachea midline and no thyromegaly. Heart was regular rate and rhythm without rubs. Lower extremities without edema. Lungs were clear to auscultation bilaterally and with normal excursion.
Abdomen was soft, nontender, with normal active bowel sounds, and no hepatosplenomegaly. Skin was without rash and with normal turgor.
Data Reviewed
-
Radiology: Image Personally Visualized and interpreted (Chest x-ray 09/19/2024 by my reading shows cardiomegaly, vascular prominence)
CT Scan: Report Reviewed by me (CT head 09/19/2024 chronic right middle cerebral artery territory infarct)
Medical Tests (Nuc Med, Echo etc): Image Personally Visualized and interpreted (EKG 09/19/2024 by my reading left axis deviation left bundle branch block)
Labs: Labs Reviewed by me
Old Records: Reviewed
Assessment/Plan
-
Impression:
Hyponatremia acute on chronic with associated seizure
Dementia at baseline
Hypotension
Leukocytosis
Plan:
follow serial BMP
D5W for now
Check urine studies
Discussed with and son. She will benefit from fluid restriction though this will be difficult given her dementia and lack of 24-hour supervision
Prior urine osmolality was low suggesting a greater polydipsia component
Critical time 35 minutes
[2024-09-20 10:46] LABS: NT-proBNP 15500 pg/ml
[2024-09-20 11:14] LABS: Blood Urea Nitrogen 12 mg/dl (7-17); Calcium 8.4 mg/dl (8.4-10.2); Carbon Dioxide 29 mmol/L (22-30); Chloride 93 mmol/L (98-107); Estimated Creatinine Clearance 72 ml/min; Glucose 157 mg/dl (70-99); Potassium 4.4 mmol/L (3.5-5.1); Sodium 129 mmol/L (135-145); eGFR > 60.00
--- NOTE | 2024-09-20 11:30 | PTCARENOTE ---
Report given verbally to LUIZA Karimi. Questions answered.
--- NOTE | 2024-09-20 13:03 | CON.INTV ---
Consultation
Consultation Request
Date/Time Consultation Requested: 09/19/2024
Date/Time Consultation Performed: 09/20/2024
Medical History
-
Chief Complaint: Altered mental status
History of Present Illness:
69-year-old female past medical history of CVA, vascular dementia, former alcohol use disorder, breast carcinoma status postmastectomy, chemo and radiation in 1989 presents to the emergency department for altered mental status of 1 day duration from
her senior care [place]. In speaking to the son at bedside, patient's baseline is apparently demented however she does live independently, is able to eat on her own and will recognize her son. She is also reportedly on Lexapro and Seroquel and
reportedly eats and drinks a lot. Reportedly she was having hallucinations and paranoia of 1 day in duration. In the emergency department patient was noted to have 2 seizures of approximately 1 minute in duration. She was given Ativan and Keppra.
Labs were checked and sodium was 118 in the emergency department. Over the night of her admission, she received 100 mL of 3% normal saline, recheck demonstrated 114, second recheck demonstrated 119 and she was started on additional 250 mL of 3%
normal saline. Subsequent recheck demonstrated improvement from 119-130 in approximately 6 hours. 3% saline was discontinued, patient was initiated on desmopressin IV and D5 normal saline. Patient was also started on Zosyn in the emergency
department as there was concerns for possible sepsis.
Past Medical History
Past Medical History: Cancer and Other (Dementia, vascular dementia)
Social History
Alcohol: Former
Allergies / Home Medications
Allergies
Allergy/AdvReac Type Severity Reaction Status Date / Time
No Known Allergies Allergy Verified 09/19/24 21:08
Home Medications
�Medication �Instructions �Recorded �Confirmed �Last Taken �Type
mirtazapine 15 mg tablet 15 mg PO HS 30 days #30 tabs 03/12/24 07/03/24 04/25/24 Rx
thiamine HCl (vitamin B1) 100 mg 100 mg PO DAILY 30 days #30 tabs 03/12/24 07/03/24 04/26/24 Rx
tablet
tiotropium bromide 18 mcg capsule 2 cap inhalation R DAILY 07/03/24 07/03/24 Unknown History
with inhalation device
Review of Systems
-
Unable to Obtain full review of systems at this time due to: Dementia (Patient not responsive to questions during interview)
Vitals / Labs / Diagnostic Testing
Vital Signs
Temp Pulse Resp BP Pulse Ox
99.2 F 74 12 106/71 99
09/20/24 11:57 09/20/24 12:00 09/20/24 12:00 09/20/24 12:00 09/20/24 12:00
Lab Data
09/20/24 06:19
Laboratory Results
09/19/24
23:27
pH 7.42
pCO2 35
pO2 117 H
HCO3 22.7
O2 Delivery Level
Diagnostic Testing:
Physical Exam
-
Cardiovascular: S1/S2 and Regular Rhythm
Respiratory: Other (Poor inspiratory effort, breathing comfortably on room air. Slight crackles bilateral base of the lungs)
Neurology: Other (AAO x 0)
Assessment
-
Assessment:
69 female past medical history of vascular dementia, CVA, former AUD, breast carcinoma, status post mastectomy chemo and rads presents for 1 day duration of altered mental status, hallucinations paranoia and seizures. Found to have severe
hyponatremia potential causing seizures.
Plan:
#Altered mental status
#Acute toxic metabolic encephalopathy
Unsure baseline, per son at bedside, patient's baseline is demented but able to recognize family, live independently, eat on her own
Currently patient is AAO x 0, nonresponsive to questions but comfortable in bed
CT head noncontrast in emergency department demonstrated moderate-sized chronic transcortical infarct of the right MCA, no new intracranial pathology or bleeds
Likely altered mental status is multifactorial in etiology, could be combination of seizure/postictal, medication induced and/or metabolic from hyponatremia and/or other electrolytes
Continue to monitor in ICU
Continue to monitor and repeat electrolytes as needed, daily CBC and BMP
#Acute on chronic hyponatremia
Likely hypovolemic as chloride was low
Per son patient has had issues with hyponatremia in the past requiring multiple hospitalizations. She takes salt tablet daily at home and per the son does drink 'a lot of water'
Sodium 114 on admission, status post multiple boluses of 3% normal saline overnight
Most recently sodium increased from 119-130 in approximately 6 hours
3% saline discontinued
Initiated D5 water 100 mL/h
One-time 2 mg desmopressin IV
Recheck BMP with every 4 hour BMP rechecks to monitor hyponatremia progression
Nephrology following-recommended free water restriction and urine studies
Of note patient reports taking Lexapro at home, could possibly be contributing factor to hyponatremia
#Seizures
Patient had 2 seizures of approximately 1 minute duration in emergency department, was able to be broken with IV Ativan
Etiology likely secondary to severe hyponatremia
Was initiated on IV Keppra loading dose 1000 in Emergency Department
Continue IV Keppra 500 every 12h
As needed Ativan for breakthrough seizures
#SIRS criteria
#Hypotension
#Leukocytosis
Patient was found to have positive SIRS criteria on admission with hypotension and elevated WBC count 19.5, but no source
Patient has been afebrile throughout her stay, WBC count downtrending-leukocytosis could be secondary to seizures
Was requiring 4 mg Levophed, currently not requiring pressors consistently
Blood pressure still running soft while not on pressors
Continue D5 water solution
Chest x-ray and head CT did not demonstrate any acute pathology or potential source of infection
Blood cultures never drawn
Patient was initiated on IV Zosyn, currently has received 2 doses
Do not believe patient has an active infection, or sepsis, however will defer antibiotics to primary team
#Former alcohol use disorder
Reportedly not drinking since in [place]
DVT prophylaxis: Heparin 5000 SC q12
Diet: N.p.o.
CODE STATUS: DNR
[2024-09-20 13:25] LABS: Osmolality Urine 111 mOsm/kg (300-900)
--- NOTE | 2024-09-20 13:38 | W.PN.HOSP.TC ---
Today's Communication/Plan
-
Monitor vital signs see plan
Continue with Keppra for now
Monitor sodium closely
Continue antibiotics for now, low threshold to discontinue if improves
monitor mental status
called daughter;left voicemail
Assessment / Plan
Assessment / Plan
General: No Apparent Distress,lethargic
HEENT: Normocephalic and Atraumatic
Respiratory: Clear to Auscultation; Negative Wheezes
Cardiac: Regular Rhythm and S1/S2
GI: Soft and Nontender
Musculoskeletal: No Edema
Neuro: Awake
Psych: Calm and Apparent Dementia
Acute metabolic encephalopathy secondary to hyponatremia
Has prior history of hyponatremia
- Sodium 118 on admission
Na then corrected fast; now on D5W
nephrology following
-CT head shows moderate-sized chronic transcortical infarct in the right middle cerebral artery
Repeat BMP later today
# Hyponatremia associated seizure
- Keppra 1000 mg given on admission, continue [address] head with chronic moderate size transcortical infarct in the right middle cerebral artery territory
Consult neurology
Acute hypoxic respiratory insufficiency likely secondary to aspiration pneumonitis with seizure
Continue Zosyn for now
Wean oxygen as tolerated
will need speech eval when awake
Met SIRS criteria on admission however no blood cultures were checked. Leukocytosis could likely be secondary to seizure. will dc abx if sx continue to improve
Lactic acidosis on admission
Resolved
History of CVA
Vascular dementia
Former alcohol use
-not drinking since in [place]
Protein calorie malnutrition
Breast cancer status post mastectomy/chemotherapy/radiation
DNR/DNI
DVT prophylaxis�heparin
N.p.o.
I spent a total of 53 minutes with the patient or on the floor. More than 50% of this time involved counseling and coordination of care.
Anticipated Discharge: > 48 hours
Subjective/Interval History
-
Date of Service: September 20, 2024
lethargic
Objective Data
-
Labs:
Laboratory Results
09/20/24 09/20/24 09/20/24
00:51 06:19 10:37
WBC 13.1 H
Hgb 12.8
Hct 36.7 L
Plt Count 351
Sodium Pending 130 L D 129 L
Potassium Pending 4.4 4.4
Chloride Pending 94 L 93 L
Carbon Dioxide Pending 27 29
BUN Pending 14 12
Creatinine Pending 0.5 L 0.6
Glucose Pending 116 H 157 H
Calcium Pending 8.1 L 8.4
Total Bilirubin 1.0
AST 25
ALT 14
Alkaline Phosphatase 71
09/20/24 09/20/24 09/20/24
12:00 14:00 18:00
WBC
Hgb
Hct
Plt Count
Sodium Cancelled Pending Cancelled
Potassium Cancelled Pending
Chloride Cancelled Pending
Carbon Dioxide Cancelled Pending
BUN Cancelled Pending
Creatinine Cancelled Pending
Glucose Cancelled Pending
Calcium Cancelled Pending
Total Bilirubin
AST
ALT
Alkaline Phosphatase
09/20/24 09/20/24 09/20/24
18:00 18:00 18:00
WBC
Hgb
Hct
Plt Count
Sodium Pending
Potassium Cancelled Pending
Chloride Cancelled Pending
Carbon Dioxide Cancelled
BUN
Creatinine
Glucose
Calcium
Total Bilirubin
AST
ALT
Alkaline Phosphatase
09/20/24 09/20/24 09/20/24
18:00 18:00 18:00
WBC
Hgb
Hct
Plt Count
Sodium
Potassium
Chloride
Carbon Dioxide Pending
BUN Cancelled Pending
Creatinine Cancelled Pending
Glucose Cancelled
Calcium
Total Bilirubin
AST
ALT
Alkaline Phosphatase
09/20/24 09/20/24 09/20/24
18:00 18:00 22:00
WBC
Hgb
Hct
Plt Count
Sodium Pending
Potassium Pending
Chloride Pending
Carbon Dioxide Pending
BUN Pending
Creatinine Pending
Glucose Pending Pending
Calcium Cancelled Pending Pending
Total Bilirubin
AST
ALT
Alkaline Phosphatase
Vital Signs:
Vital Signs
Temp Pulse Resp BP Pulse Ox
99.2 F 74 12 106/71 99
09/20/24 11:57 09/20/24 12:00 09/20/24 12:00 09/20/24 12:00 09/20/24 12:00
I&O
09/19/24 09/20/24 09/21/24
06:59 06:59 06:59
Intake Total 458.1 / 478.1 449.25 / 449.25
Output Total 1800 / 1800
Balance -1341.9 / -1321.9 449.25 / 449.25
[2024-09-20 13:46] LABS: Urine Sodium 17 mmol/L (30-90)
--- NOTE | 2024-09-20 13:52 | PTCARENOTE ---
report received, assessments per work list. patient nonverbal does not follow commands but moves with purpose. fights care. monitor nsr with bbb. Levophed per work list. bed alarm activated. midline patent. safe environment maintained
--- NOTE | 2024-09-20 14:03 | CON.NEURO ---
Consultation
Order
Date of Consultation: 09/20/24
Requesting Provider: Darron Mcdowell MD
Reason for Consult: Encephalopathy
Neurology Consultation Note.
HPI: This is a 69-year-old woman who presented to [facility] on September 19, 2024 with encephalopathy. According to EMR patient had witnessed GTC in the ER lasting for 1 minute. She received 2 mg of Ativan amd was started on Keppra.
ER VS: 144/86, 120, 16, afebrile, 96 % on room air
Review of vital signs was notable for hypotension down to 76/57 requiring Levophed and ICU care.
EKG:VR 114, QTc Int : 490 ms
PDMP: Alprazolam 0.25 mg 60 tablets filled in on.
Labs: Glucose�178, WBCs�19.4, sodium�114, magnesium�1.7, unremarkable urinalysis, negative EtOH,
CT head wo contrast-1. Moderate-sized chronic transcortical infarct in the right middle cerebral artery territory involving the right insular cortex, posterior superior right temporal lobe, and right parietal lobe with associated encephalomalacia
which appears chronic and unchanged.
2. Moderate bilateral frontal lobe volume loss.
CXR: Acute interstitial and alveolar Drainage and pulmonary edema.
MAR: Keppra, lorazepam, Zosyn, 3% NS
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 Initially, the family noticed a decline in her
activities, which seemed like depression. She was also drinking alcohol excessively at that time.
Ms. Pierson reportedly had no regular medical care before she presented to medical attention in fall 2023. Her medications have been changed multiple times due to concerns about their impact on her sodium levels. She was initially on Seroquel, which
was discontinued due to hyponatremia. This led to depression, for which she was prescribed Lexapro, which was not very effective. She was then reportedly put back on a low dose of Seroquel.
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
PSH: R mastectomy,
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
All: NKDA
ROS: Unable due to encephalopathy
General: Asleep in no acute distress.
Cardio: Regular rate and rhythm. Extremities are without cyanosis or edema.
Neuro:
Mental Status: Briefly awakens and attends to the examiner to verbal and tactile stimuli. Does not follow requests. No verbal output.
Cranial Nerves: Pupils are equally round and reactive to light. Orthophoric primary gaze, no nystagmus. No facial weakness.
Motor: Normal motor tone and bulk moves all limbs within bed plane symmetrically.
Reflexes: No clonus bilaterally at the ankle.
Sensory: Grimaces to painful stimuli
Coordination: No tremors myoclonic movements.
Gait: deferred
Assessment and Plan:
I. Acute symptomatic seizure due to hyponatremia
II. Multifactorial encephalopathy (vascular, metabolic, toxic, postictal). FTD?
III. Right MCA territory infarct.
IV. History of right breast cancer (s/p chemo and RT)
- Aspiration precautions.
- Please check CK, LDL
- Continue IV thiamine
- Routine EEG
- Start aspirin 81 mg once a day if no contraindications.
- Brain MRI without gill
- The case was discussed with patient's and son
I personally reviewed all radiology and labs along with past medical records pertinent to current medical problems. Total time spent in patient care is 60 minutes.
Thank you for allowing us to participate in the care of this patient. We will continue to follow. Please do not hesitate to contact us with any questions or concerns.
Subjective/Objective
Subjective Data
Date of Service: September 20, 2024
Objective Data
Vital Signs
Temp Pulse Resp BP Pulse Ox
37.3 C 65 15 113/61 97
09/20/24 11:57 09/20/24 13:46 09/20/24 13:46 09/20/24 13:46 09/20/24 13:46
Lab Results
09/20/24 06:19
Sodium Cancelled 09/20/24 18:00
Potassium Cancelled 09/20/24 18:00
BUN Cancelled 09/20/24 18:00
Glucose Cancelled 09/20/24 18:00
Calcium Cancelled 09/20/24 18:00
Phosphorus 2.8 mg/dl (2.5-4.5) 09/20/24 00:56
Egh-D-Ccftlayrqrj Pept 30652 pg/ml 09/20/24 06:19
Patient Allergies
No Known Allergies Allergy (Verified 09/19/24 21:08)
Medications
-
Active Medications
Generic Name Dose Route Start Last Admin
Trade Name Freq PRN Reason Stop Dose Admin
Heparin Sodium 5,000 units 09/20/24 08:00 09/20/24 07:42
Heparin 5,000 Units/Ml 1 Ml Vial SC 10/18/24 07:59 5,000 units
Q12 MC Administration
Norepinephrine Bitartrate 4 mg in 250 mls @ 0 mls/hr 09/19/24 23:15 09/20/24 01:22
Levophed IV 250 mls
PER PROTOCOL MC Administration
Protocol
Per Protocol
Piperacillin Sod/Tazobactam Sod 3.375 gram in 50 mls @ 100 mls/hr 09/20/24 00:00 09/20/24 11:42
Zosyn IV 50 mls
Q6 MC Administration
Dextrose 1,000 mls @ 100 mls/hr 09/20/24 09:00 09/20/24 08:45
D5w IV 1,000 mls
.Q10H MC Administration
Levetiracetam 500 mg 09/20/24 08:00 09/20/24 07:40
Levetiracetam (100 Mg/Ml) 500 Mg/5 Ml Vial IV 10/18/24 07:59 500 mg
Q12 MC Administration
Sodium Chloride 0 flush 09/19/24 23:00
Sodium Chloride 0.9% (Flush) Syringe IV 10/17/24 22:59
PER PROTOCOL MC
Home Medications
�Medication �Instructions �Recorded
mirtazapine 15 mg tablet 15 mg PO HS 30 days #30 tabs 03/12/24
thiamine HCl (vitamin B1) 100 mg 100 mg PO DAILY 30 days #30 tabs 03/12/24
tablet
tiotropium bromide 18 mcg capsule 2 cap inhalation R DAILY 07/03/24
with inhalation device
Vital Signs and Labs
-
Vital Signs and Labs:
Vital Signs
Temp Pulse Resp BP Pulse Ox
37.3 C 65 15 113/61 97
09/20/24 11:57 09/20/24 13:46 09/20/24 13:46 09/20/24 13:46 09/20/24 13:46
Lab Results
09/20/24 06:19
Sodium Cancelled 09/20/24 18:00
Potassium Cancelled 09/20/24 18:00
BUN Cancelled 09/20/24 18:00
Glucose Cancelled 09/20/24 18:00
Calcium Cancelled 09/20/24 18:00
Phosphorus 2.8 mg/dl (2.5-4.5) 09/20/24 00:56
Auf-N-Dmrsbnugtfn Pept 69812 pg/ml 09/20/24 06:19
Medications
-
Medications:
Generic Name Dose Route Start Last Admin
Trade Name Freq PRN Reason Stop Dose Admin
Heparin Sodium 5,000 units 09/20/24 08:00 09/20/24 07:42
Heparin 5,000 Units/Ml 1 Ml Vial SC 10/18/24 07:59 5,000 units
Q12 MC Administration
Norepinephrine Bitartrate 4 mg in 250 mls @ 0 mls/hr 09/19/24 23:15 09/20/24 01:22
Levophed IV 250 mls
PER PROTOCOL MC Administration
Protocol
Per Protocol
Piperacillin Sod/Tazobactam Sod 3.375 gram in 50 mls @ 100 mls/hr 09/20/24 00:00 09/20/24 11:42
Zosyn IV 50 mls
Q6 MC Administration
Dextrose 1,000 mls @ 100 mls/hr 09/20/24 09:00 09/20/24 08:45
D5w IV 1,000 mls
.Q10H MC Administration
Levetiracetam 500 mg 09/20/24 08:00 09/20/24 07:40
Levetiracetam (100 Mg/Ml) 500 Mg/5 Ml Vial IV 10/18/24 07:59 500 mg
Q12 MC Administration
Sodium Chloride 0 flush 09/19/24 23:00
Sodium Chloride 0.9% (Flush) Syringe IV 10/17/24 22:59
PER PROTOCOL MC
Home Medications
-
Home Medications
mirtazapine 15 mg tablet 15 mg PO HS 30 days #30 tabs 03/12/24
thiamine HCl (vitamin B1) 100 mg tablet 100 mg PO DAILY 30 days #30 tabs 03/12/24
tiotropium bromide 18 mcg capsule with inhalation device 2 cap inhalation R DAILY 07/03/24
--- NOTE | 2024-09-20 14:24 | W.PN.NEURO.1 ---
Subjective/Objective
Subjective Data
Date of Service: September 20, 2024
Objective Data
Vital Signs
Temp Pulse Resp BP Pulse Ox
37.3 C 65 15 113/61 97
09/20/24 11:57 09/20/24 13:46 09/20/24 13:46 09/20/24 13:46 09/20/24 13:46
Lab Results
09/20/24 06:19
Sodium Cancelled 09/20/24 18:00
Potassium Cancelled 09/20/24 18:00
BUN Cancelled 09/20/24 18:00
Glucose Cancelled 09/20/24 18:00
Calcium Cancelled 09/20/24 18:00
Phosphorus 2.8 mg/dl (2.5-4.5) 09/20/24 00:56
Itp-K-Oalbevrwegv Pept 24527 pg/ml 09/20/24 06:19
Patient Allergies
No Known Allergies Allergy (Verified 09/19/24 21:08)
[2024-09-20 14:33] LABS: Blood Urea Nitrogen 11 mg/dl (7-17); Carbon Dioxide 27 mmol/L (22-30); Chloride 92 mmol/L (98-107); Estimated Creatinine Clearance 72 ml/min; Glucose 161 mg/dl (70-99); Potassium 3.5 mmol/L (3.5-5.1); Sodium 125 mmol/L (135-145); eGFR > 60.00
--- NOTE | 2024-09-20 17:31 | PTCARENOTE ---
no urine out[put since 1200. bladder scan>700. route specialist updated. orders received. ornelas placed with assist of three staff. patient now uttering 'no' when asked questions. orders noted from neurologist. informed neurologist by tiger text that
patient unable to swallow oral asa. message received and read.
[2024-09-20 18:03] LABS: Blood Urea Nitrogen 11 mg/dl (7-17); Calcium 7.9 mg/dl (8.4-10.2); Carbon Dioxide 29 mmol/L (22-30); Chloride 92 mmol/L (98-107); Creatine Phosphokinase 310 U/L (30-135); Estimated Creatinine Clearance 72 ml/min; Glucose 113 mg/dl (70-99); HDL Cholesterol 48 mg/dl; LDL Cholesterol, Calculated 56 mg/dl; Sodium 125 mmol/L (135-145); Total Cholesterol 121 mg/dl (50-199); Triglyceride 88 mg/dl (10-149); Very Low Density Lipoprotein 17 mg/dl (0-30); eGFR > 60.00
[2024-09-20] MEDS: ASPIRIN 300 MG RECTAL (18:19)
--- NOTE | 2024-09-20 20:00 | PTCARENOTE ---
Patient received in bed, eyes closed, will not follow commands, opens eyes with care but nonverbal. NSR with BBC , blood pressure as documented. Palpable pulses throughout. Lungs diminished bilaterally, pulse ox 96% on room air. Abdomen soft
round hypoactive bowel sounds. Jo catheter draining yellow urine. Foam on sacrum, ecchymosis noted on bilateral upper extremities Left upper arm midline with Levophed gtt infusing as documented. #22 g in left forearm flushed and patent.
Seizure precautions maintained, bed alarm engaged.
[2024-09-20 22:14] LABS: Blood Urea Nitrogen 10 mg/dl (7-17); Calcium 7.9 mg/dl (8.4-10.2); Carbon Dioxide 29 mmol/L (22-30); Chloride 93 mmol/L (98-107); Estimated Creatinine Clearance 72 ml/min; Glucose 122 mg/dl (70-99); Potassium 3.2 mmol/L (3.5-5.1); Sodium 124 mmol/L (135-145); eGFR > 60.00
--- NOTE | 2024-09-20 22:46 | PTCARENOTE ---
Labs noted, order received
[2024-09-20] MEDS: KCL 270 MEQ IV (22:54)
[2024-09-21] VITALS (33 sets, daily range): BP systolic 80–127; BP diastolic 44–89; BMI 21.0
[2024-09-21] MEDS: ZOSYN 50 IV ×5 (00:29→23:27)
--- NOTE | 2024-09-21 04:32 | PTCARENOTE ---
Patient reassessed, oriented to self only, can state , able to follow simple commands. labs sent
[2024-09-21 04:38] LABS: % Basophils 0.8 % (0-2); % Eosinophils 1.5 % (0-6); % Immature Granulocytes 0.6 % (0-0.5); % Monocytes 9.5 % (1.7-9.3); % Neutrophils 47.6 % (42.2-75.2); Absolute Basophils 0.1 10^3/uL (0-0.2); Absolute Eosinophils 0.1 10^3/uL (0-0.7); Absolute Immature Granulocytes 0.1 10^3/uL (0-0.05); Absolute Lymphocytes 3.4 10^3/uL (1.2-3.4); Absolute Monocytes 0.8 10^3/uL (0.1-0.6); Hematocrit 31.1 % (37.0-47.0); Hemoglobin 10.8 g/dL (12.0-16.0); Mean Corp Hgb Conc. 34.7 g/dL (33.0-37.0); Mean Corpuscular Hgb 29.4 pg (27.0-31.0); Mean Corpuscular Volume 84.7 fL (81.0-99.0); Mean Platelet Volume 8.6 fL (7.4-10.4); Nucleated Red Blood Cells % 0 %; Platelet Count 326 10^3/uL (130-400); Red Blood Cell Count 3.67 10^6/uL (4.20-5.40); Red Cell Dist. Width 13.9 % (11.5-14.5); White Blood Cell Count 8.5 10^3/uL (4.8-10.8)
[2024-09-21 05:06] LABS: Blood Urea Nitrogen 8 mg/dl (7-17); Carbon Dioxide 27 mmol/L (22-30); Chloride 96 mmol/L (98-107); Estimated Creatinine Clearance 72 ml/min; Glucose 113 mg/dl (70-99); Potassium 4.1 mmol/L (3.5-5.1); Sodium 126 mmol/L (135-145); eGFR > 60.00
--- NOTE | 2024-09-21 07:16 | W.PN.NEURO.1 ---
Today's Communication / Plan
-
.
Subjective/Objective
Subjective Data
Date of Service: September 21, 2024
Neurology follow-up note
Ms. Pierson reports no complaints. She has been normotensive and afebrile.
LDL�56.
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
PSH: R mastectomy,
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
All: NKDA
ROS: Unable due to encephalopathy
General: Asleep in no acute distress.
Cardio: Regular rate and rhythm. Extremities are without cyanosis or edema.
Neuro:
Mental Status: Awake, oriented to name only did not know current year, month, season, her age. Knew the date and months of her but not year. Follows simple requests.
Cranial Nerves: Pupils are equally round and reactive to light. Orthophoric primary gaze, no nystagmus. Blinks to threat bilaterally. No facial weakness, hearing preserved. No dysarthria.
Motor: No PT or arm drift.
Reflexes: No clonus bilaterally at the ankle.
Coordination: No tremors myoclonic movements.
Gait: deferred
Assessment and Plan:
I. Acute symptomatic seizure due to hyponatremia, significantly improved
II. Mixed dementia
III. Right MCA territory infarct.
IV. History of right breast cancer (s/p chemo and RT)
- Aspiration precautions.
- Continue IV thiamine
- Continue aspirin 81 mg once a day
- Brain MRI without gill
- Will follow
I personally reviewed all radiology and labs along with past medical records pertinent to current medical problems. Total time spent in patient care is 60 minutes.
Thank you for allowing us to participate in the care of this patient. We will continue to follow. Please do not hesitate to contact us with any questions or concerns.
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
PSH: R mastectomy,
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
All: NKDA
ROS: Unable due to encephalopathy
General: Asleep in no acute distress.
Cardio: Regular rate and rhythm. Extremities are without cyanosis or edema.
Neuro:
Mental Status: Briefly awakens and attends to the examiner to verbal and tactile stimuli. Does not follow requests. No verbal output.
Cranial Nerves: Pupils are equally round and reactive to light. Orthophoric primary gaze, no nystagmus. No facial weakness.
Motor: Normal motor tone and bulk moves all limbs within bed plane symmetrically.
Reflexes: No clonus bilaterally at the ankle.
Sensory: Grimaces to painful stimuli
Coordination: No tremors myoclonic movements.
Gait: deferred
Assessment and Plan:
I. Acute symptomatic seizure due to hyponatremia
II. Multifactorial encephalopathy (vascular, metabolic, toxic, postictal). FTD?
III. Right MCA territory infarct.
IV. History of right breast cancer (s/p chemo and RT)
- Aspiration precautions.
- Please check CK, LDL
- Continue IV thiamine
- Start aspirin 81 mg once a day if no contraindications.
- Brain MRI without gill
- The case was discussed with patient's and son
I personally reviewed all radiology and labs along with past medical records pertinent to current medical problems. Total time spent in patient care is 35 minutes.
Thank you for allowing us to participate in the care of this patient. We will continue to follow. Please do not hesitate to contact us with any questions or concerns.
Objective Data
Vital Signs
Temp Pulse Resp BP Pulse Ox
36.8 C 54 13 123/50 98
09/21/24 04:00 09/21/24 06:30 09/21/24 06:30 09/21/24 06:30 09/21/24 06:30
Lab Results
09/21/24 04:29
09/21/24 14:00
Sodium Cancelled 09/21/24 14:00
Potassium Cancelled 09/21/24 14:00
BUN Cancelled 09/21/24 14:00
Glucose Cancelled 09/21/24 14:00
Calcium Cancelled 09/21/24 14:00
Phosphorus 2.8 mg/dl (2.5-4.5) 09/20/24 00:56
Hxk-S-Vnvfmzqmhey Pept 08797 pg/ml 09/20/24 06:19
LDL Cholesterol, Calc 56 mg/dl 09/20/24 17:31
Patient Allergies
No Known Allergies Allergy (Verified 09/19/24 21:08)
Vital Signs and Labs
-
Vital Signs and Labs:
Vital Signs
Temp Pulse Resp BP Pulse Ox
36.8 C 54 13 123/50 98
09/21/24 04:00 09/21/24 06:30 09/21/24 06:30 09/21/24 06:30 09/21/24 06:30
Lab Results
09/21/24 04:29
09/21/24 14:00
Sodium Cancelled 09/21/24 14:00
Potassium Cancelled 09/21/24 14:00
BUN Cancelled 09/21/24 14:00
Glucose Cancelled 09/21/24 14:00
Calcium Cancelled 09/21/24 14:00
Phosphorus 2.8 mg/dl (2.5-4.5) 09/20/24 00:56
Ety-T-Vlapavujaze Pept 64809 pg/ml 09/20/24 06:19
LDL Cholesterol, Calc 56 mg/dl 09/20/24 17:31
Medications
-
Medications:
Generic Name Dose Route Start Last Admin
Trade Name David PRN Reason Stop Dose Admin
Aspirin 300 mg 09/20/24 18:00 09/20/24 18:19
Aspirin 300 Mg Rectal Suppository RECTAL 10/18/24 17:59 300 mg
DAILY MC Administration
Heparin Sodium 5,000 units 09/20/24 08:00 09/20/24 20:03
Heparin 5,000 Units/Ml 1 Ml Vial SC 10/18/24 07:59 5,000 units
Q12 MC Administration
Norepinephrine Bitartrate 4 mg in 250 mls @ 0 mls/hr 09/19/24 23:15 09/20/24 23:12
Levophed IV 250 mls
PER PROTOCOL MC Administration
Protocol
Per Protocol
Piperacillin Sod/Tazobactam Sod 3.375 gram in 50 mls @ 100 mls/hr 09/20/24 00:00 09/21/24 05:58
Zosyn IV 50 mls
Q6 MC Administration
Dextrose 1,000 mls @ 100 mls/hr 09/20/24 09:00 09/20/24 08:45
D5w IV 1,000 mls
.Q10H MC Administration
Levetiracetam 500 mg 09/20/24 08:00 09/20/24 20:03
Levetiracetam (100 Mg/Ml) 500 Mg/5 Ml Vial IV 10/18/24 07:59 500 mg
Q12 MC Administration
Sodium Chloride 0 flush 09/19/24 23:00
Sodium Chloride 0.9% (Flush) Syringe IV 10/17/24 22:59
PER PROTOCOL MC
Home Medications
-
Home Medications
mirtazapine 15 mg tablet 15 mg PO HS 30 days #30 tabs 03/12/24
thiamine HCl (vitamin B1) 100 mg tablet 100 mg PO DAILY 30 days #30 tabs 03/12/24
atorvastatin 20 mg tablet 20 mg PO DAILY 09/20/24
donepezil 10 mg tablet 10 mg PO HS 09/20/24
escitalopram oxalate 5 mg tablet 5 mg PO DAILY 09/20/24
folic acid 1 mg tablet 1 mg PO DAILY 09/20/24
quetiapine 25 mg tablet 25 mg PO 09/20/24
tiotropium bromide 18 mcg capsule with inhalation device (Spiriva with HandiHaler) 1 cap inhalation DAILY 09/20/24
[2024-09-21] MEDS: HEPARIN 5000 UNITS SC ×2 (08:05→19:27)
[2024-09-21] MEDS: KEPPRA 500 MG IV ×2 (08:05→19:28)
[2024-09-21] MEDS: ASPIRIN 300 MG RECTAL (08:05)
--- NOTE | 2024-09-21 08:29 | PTCARENOTE ---
report received, assessments per work list. patient awake, oriented to person, 'hospital'. states Isaiah is president. no short term memory. cooperative. alarm maintained for patient safety. Levophed per work list. lungs diminished. monitor nsr with
avb,bbb. Jo draining yellow urine. abdomen soft, hypoactive bowel sounds. sacral foam intact.
--- NOTE | 2024-09-21 08:50 | W.PN.NEPH.PH ---
Today's Communication / Plan
-
follow BMP
Assessment/Plan
-
Impression:
Hyponatremia acute on chronic with associated seizure
Dementia at baseline
Hypotension
Leukocytosis
right MCA CVA old
Plan:
follow BMP
no IVF for now
speech eval
wean levophed
Uosm 100 and Liudmila 17. not excess ADH.
Allow autocorrection at this time. Can use NSS if IVF needed.
critical care time 31 minutes
-
-
Date of Service: September 21, 2024
CC / HPI / ROS
-
Chief Complaint:
hyponatremia
History of Present Illness:
Na up to 126
now awake and interactive
BP stable, but still on levophed
critically ill in ICU
Review of Systems:
no CP/SOB
Labs
-
Labs:
WBC 8.5 10^3/uL (4.8-10.8) 09/21/24 04:29
RBC 3.67 10^6/uL (4.20-5.40) L 09/21/24 04:29
Hgb 10.8 g/dL (12.0-16.0) L 09/21/24 04:29
Hct 31.1 % (37.0-47.0) L 09/21/24 04:29
Plt Count 326 10^3/uL (130-400) 09/21/24 04:29
Sodium Cancelled 09/21/24 14:00
Potassium Cancelled 09/21/24 14:00
Chloride Cancelled 09/21/24 14:00
Carbon Dioxide Cancelled 09/21/24 14:00
BUN Cancelled 09/21/24 14:00
Creatinine Cancelled 09/21/24 14:00
eGFR Cancelled 09/21/24 14:00
Glucose Cancelled 09/21/24 14:00
Calcium Cancelled 09/21/24 14:00
Phosphorus 2.8 mg/dl (2.5-4.5) 09/20/24 00:56
Ayn-K-Zthowkvfvxg Pept 55653 pg/ml 09/20/24 06:19
Albumin 3.7 g/dl (3.5-5.0) 09/20/24 06:19
Physical Exam
-
Vital Signs:
Vital Signs
Temp Pulse Resp BP Pulse Ox
98.1 F 54 13 123/50 98
09/21/24 08:00 09/21/24 06:30 09/21/24 06:30 09/21/24 06:30 09/21/24 06:30
Cardiovascular:: Regular rate and rhythm
Respiratory:: Bilateral: CTA
Lung Excursion:: Normal
Abdomen:: Nontender and Soft
Bowel Sounds:: Normal
Extremity Edema:: None: Bilateral:
--- NOTE | 2024-09-21 10:16 | PTCARENOTE ---
levophed weaned to off, ornelas removed. oob with assist to bedside commode, small brown loose stool. no short term memory
--- NOTE | 2024-09-21 11:23 | W.PN.INTV ---
Today's Communication / Plan
Recommendations
Initiate regular diet with thin liquids
Neurology testing, EEG brain MRI without contrast
Check transthoracic echocardiogram
Continue to monitor sodium via BMPs
Continue free water restriction
Discontinue Jo catheter
Wean off pressors as tolerated
Assessment
-
Assessment:
69 female past medical history of vascular dementia, CVA, former AUD, breast carcinoma, status post mastectomy chemo and rads presents for 1 day duration of altered mental status, hallucinations paranoia and seizures. Found to have severe
hyponatremia potential causing seizures.
Plan:
#Altered mental status
#Acute toxic metabolic encephalopathy
Unsure baseline, per son at bedside, patient's baseline is demented but able to recognize family, live independently, eat on her own
Mentation has greatly improved, currently patient is AAO x 2, oriented to person and place but not time
CT head noncontrast in emergency department demonstrated moderate-sized chronic transcortical infarct of the right MCA, no new intracranial pathology or bleeds
Likely altered mental status is multifactorial in etiology, could be combination of seizure/postictal, medication induced and/or metabolic from hyponatremia and/or other electrolytes
Neurology consulted, ordered EEG and MRI noncontrast brain, studies currently pending
Neurology following
Continue to monitor and repeat electrolytes as needed, daily CBC and BMP
#Acute on chronic hyponatremia
Likely combination of hypovolemic with low solute intake, patient's son does tell story that corroborates this story. Reportedly she drinks a lot of water at home and does not eat much, per son patient has had issues with hyponatremia in the past
requiring multiple hospitalizations
Sodium 114 on admission, status post multiple boluses of 3% normal saline -sodium increased to from 119 to 130 approximately 6 hours
3% saline discontinued, Initiated D5 water 100 mL/h, One-time 2 mg desmopressin IV
Recheck BMP demonstrated gradual correction in sodium, currently correcting at a safe interval
Monitor sodium with daily BMP at 5 PM, daily BMP in a.m.
Free water restriction per nephrology
Urine studies demonstrated low osmolality and low urine sodium
Nephrology following
#Elevated BNP
BNP returned 15,000, previous echo 07/05/2024 had EF 55 to 60%
Ordered recheck 2D echocardiogram transthoracic, pending
#Seizures
Patient had 2 seizures of approximately 1 minute duration in emergency department, was able to be broken with IV Ativan
Etiology likely secondary to severe hyponatremia
Patient has not had any seizures since first day in emergency department
Was initiated on IV Keppra loading dose 1000 in Emergency Department
Continue IV Keppra 500 every 12h
As needed Ativan for breakthrough seizures
#SIRS criteria
#Hypotension
#Leukocytosis
Patient was found to have positive SIRS criteria on admission with hypotension and elevated WBC count 19.5, but no source
Leukocytosis resolved, likely secondary to seizures. Patient has been afebrile throughout her stay
Was previously requiring as needed Levophed, was able to be weaned off of pressors today
Chest x-ray and head CT did not demonstrate any acute pathology or potential source of infection
Blood cultures never drawn
Patient was initiated on IV Zosyn
Was concern for possible aspiration during seizure episodes, patient has had no cough, repeat chest x-ray demonstrated interval resolution of previously seen interstitial markings
Do not believe patient has an active infection, or sepsis, however will defer discontinuation of antibiotics to primary team
#Former alcohol use disorder
Reportedly not drinking since in [place]
DVT prophylaxis: Heparin 5000 SC q12
Diet: Regular diet within liquids
CODE STATUS: DNR
Subjective Dataa
Subjective Data
Date of Service:
Date of Service: September 21, 2024
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
Subjective:
Mentation greatly improved compared to yesterday. Alert and oriented to person and place but not time this morning. Able to tell me that she is in [facility], responds to questions and commands, does not know the year or the president.
Resting comfortably in bed. Reports no recollection of recent events, cannot recall last thing she remembers.
Review of Systems
General: Other (No fever)
Cardiopulmonary: Other (Reports no cough, no chest pain, no wheezing)
Neuro: Other (Alert and oriented to person and place but not time)
Objective Data
Data Reviewed
Vital Signs / I&O / Oxygen:
Vital Signs
Temp Pulse Resp BP Pulse Ox
98.1 F 62 13 115/81 94
09/21/24 08:00 09/21/24 11:00 09/21/24 11:00 09/21/24 11:00 09/21/24 09:30
Intake and Output
09/20/24 09/21/24 09/22/24
06:59 06:59 06:59
Intake Total 458.1 / 478.1 1514.65 / 1525.95 83.9 / 83.9
Output Total 1800 / 1800 1525 / 1525 150 / 150
Balance -1341.9 / -1321.9 -10.35 / 0.95 -66.1 / -66.1
SaO2 94
Nasal Cannula flow liters per 2
minute
Physical Exam
Cardiovascular: S1-S2
Respiratory: Clear
Neurology: Awake, Alert and Other (Oriented to person and place but not time)
Labs/Micro/Reports
Lab Data
09/21/24 04:29
Microbiology
09/20/24 03:19 Nose MRSA Screen - Final
No Methicillin Resistant Staphylococcus aureus isolated.
--- NOTE | 2024-09-21 11:40 | PTOTSP ---
Dysphagia Eval
Patient with elevated risk for dysphagia given AMS from hyponatremia and recent seizure and chronic conditions (dementia, R CVA).
Recommend:
1. Regular, Thin
2. Full supervision and assistance as needed
3. Strategies: upright to 90 degrees, single sips/bites, slow rate, monitor for s/s of aspiration
4. Medications as best tolerated
5. Brief dysphagia f/u at the acute care level to ensure tolerance of diet, use of compensatory strategies, and determine if instrumental testing warranted
--- NOTE | 2024-09-21 14:09 | W.PN.HOSP.TC ---
Addendum entered and electronically signed by Darron Mcdowell MD 09/21/24 14:33:
Discussed with daughter over the phone
Original Note:
Today's Communication/Plan
-
monitor vitals
see plan
monitor with fluid restriction
follow BMP
monitor mentation
Seizure precautions
Assessment / Plan
Assessment / Plan
General: No Apparent Distress,lethargic
HEENT: Normocephalic and Atraumatic
Respiratory: Clear to Auscultation; Negative Wheezes
Cardiac: Regular Rhythm and S1/S2
GI: Soft and Nontender
Musculoskeletal: No Edema
Neuro: Awake
Psych: Calm and Apparent Dementia
Acute metabolic encephalopathy secondary to hyponatremia
Has prior history of hyponatremia. Suspect polydipsia
- Sodium 118 on admission
Na slowly improving
now mentation better; follow BMP
nephrology following
-CT head shows moderate-sized chronic transcortical infarct in the right middle cerebral artery
cleared by speech for regular diet; monitor for fluid restriction
elevated bnp; clinically she looked dehydrated. Echo pending. X-ray without fluid overload
# Hyponatremia associated seizure
- Keppra 1000 mg given on admission, continue [address] head with chronic moderate size transcortical infarct in the right middle cerebral artery territory
Neurology following
Aspirin
MRI pending
EEG
Acute hypoxic respiratory insufficiency likely secondary to aspiration pneumonitis with seizure
Continue Zosyn for now
weaned off o2
Met SIRS criteria on admission however no blood cultures were checked. Leukocytosis could likely be secondary to seizure. will dc abx if sx continue to improve
Lactic acidosis on admission
Resolved
History of CVA
Vascular dementia
Former alcohol use
-not drinking since in [place]
Protein calorie malnutrition
Breast cancer status post mastectomy/chemotherapy/radiation
DNR/DNI
DVT prophylaxis�heparin
I spent a total of 52 minutes with the patient or on the floor. More than 50% of this time involved counseling and coordination of care.
Anticipated Discharge: 24 - 48 hours
Subjective/Interval History
-
Date of Service: September 21, 2024
denies pain
Objective Data
-
Labs:
Laboratory Results
09/21/24 09/21/24
04:29 17:00
WBC 8.5
Hgb 10.8 L
Hct 31.1 L
Plt Count 326
Sodium 126 L Pending
Potassium 4.1 D Pending
Chloride 96 L Pending
Carbon Dioxide 27 Pending
BUN 8 Pending
Creatinine 0.5 L Pending
Glucose 113 H Pending
Calcium 8.0 L Pending
Vital Signs:
Vital Signs
Temp Pulse Resp BP Pulse Ox
98.3 F 62 11 114/57 95
09/21/24 11:37 09/21/24 12:00 09/21/24 12:00 09/21/24 12:00 09/21/24 12:09
I&O
09/20/24 09/21/24 09/22/24
06:59 06:59 06:59
Intake Total 458.1 / 478.1 1514.65 / 1525.95 203.9 / 203.9
Output Total 1800 / 1800 1525 / 1525 150 / 150
Balance -1341.9 / -1321.9 -10.35 / 0.95 53.9 / 53.9
--- NOTE | 2024-09-21 14:20 | PTCARENOTE ---
reassessed. off pressors since 100 am, oob to chair, ambulating with assist to bathroom. tolerating oral intake without signs aspiration
[2024-09-21] MEDS: SPIRIVA RESPIMAT 2.5 MCG INH (14:26)
[2024-09-21] MEDS: ProAmatine 5 MG PO (14:41)
--- NOTE | 2024-09-21 15:16 | EEGC.RPT ---
Continuous EEG Report
Recording
Start Date of Data Reviewed: 09/21/24
End Date of Data Reviewed: 09/21/24
Done with Video Recording: Yes
Report
TECHNICAL REMARKS: This is a technically satisfactory eighteen channel record employing 21 disc electrodes applied according to a measured international 10-20 electrode placement system. There were no significant technical difficulties. The study
was done on a [employer] System.
STUDY DURATION: 26 minutes, 56 seconds.
MEDICATIONS: Keppra, thiamine, Remeron, Zosyn
CLINICAL HISTORY: This is a 69-year-old woman with encephalopathy. This study was requested to look for epileptiform activity.
REPORT: At the onset of the EEG, the patient is awake. The background activity consists of 6�7 hz, impersistent, posteriorly dominant, moderate amplitude, symmetric, and rhythmic activity. Continuous generalized, 2-3 Hz, 30-50 uV polymorphic delta
activity was seen. Stepwise intermittent photic stimulation did not induce additional abnormalities. Hyperventilation was not performed. No epileptiform activity was seen. Drowsiness is characterized by low amplitude mixed frequency activity,
decreased eye blinking, and muscle artifact. Multiple muscle artifacts were present limited precise characterization of the record.
IMPRESSION: This is an abnormal awake and drowsy EEG due to a moderate to severe generalized slowing indicative of diffuse cerebral dysfunction, nonspecific in terms of etiology. No epileptiform abnormalities were seen
--- NOTE | 2024-09-21 16:02 | CM ---
manager mechanical maintenance reviewed patient's chart and met with patient and patient lives at [facility] in [place], field case manager met with patient and patient's spouse and son also at bedside, patient is independent with adl's and ambulation, no dme,
plan is to return to [place] when stable.
PCP: Dr. Barnett
Pharmacy: [facility]
Plan; Patient to return to [place] when stable.
[2024-09-21 16:47] LABS: Blood Urea Nitrogen 10 mg/dl (7-17); Calcium 7.8 mg/dl (8.4-10.2); Carbon Dioxide 27 mmol/L (22-30); Chloride 98 mmol/L (98-107); Estimated Creatinine Clearance 64 ml/min; Glucose 109 mg/dl (70-99); Potassium 3.7 mmol/L (3.5-5.1); Sodium 127 mmol/L (135-145); eGFR > 60.00
--- NOTE | 2024-09-21 18:09 | PTCARENOTE ---
patient with NO short term memory. assisted to bathroom. unable to void as 'toilet seat too cold'. bladder scan per work list. when patient assisted to bed she has no recall that she just returned from the bathroom. bed alarm maintained
--- NOTE | 2024-09-21 20:00 | PTCARENOTE ---
Rec'd pt resting in bed, forgetful, confused, follows commands, needs frequent reorientation, amb w/ assistance, bed alarm on, 1' AV block w/ BBB, weak distal pulses, denies pain, RA, lungs decr breath sounds, sat95, hypo bowel sounds, abd soft, no
n/v, hnv yet, bladder scanned for 375 ml
--- NOTE | 2024-09-21 22:00 | PTCARENOTE ---
bladder scanned for 390 ml
assisted to bathroom- voided lg amt urine, post void scan for 21 ml
[2024-09-21] MEDS: REMERON 15 MG PO (22:13)
[2024-09-22] VITALS (10 sets, daily range): BP systolic 91–146; BP diastolic 43–77; PULSE 67–75; O2SAT 97–99; BMI 20.6
--- NOTE | 2024-09-22 | PTCARENOTE ---
Sys reviewed, CHG bath done, linens changed
[2024-09-22 03:51] LABS: % Basophils 0.8 % (0-2); % Eosinophils 2.3 % (0-6); % Immature Granulocytes 0.5 % (0-0.5); % Lymphocytes 41.5 % (20.5-51.1); % Monocytes 9.4 % (1.7-9.3); % Neutrophils 45.5 % (42.2-75.2); Absolute Basophils 0.1 10^3/uL (0-0.2); Absolute Eosinophils 0.2 10^3/uL (0-0.7); Absolute Lymphocytes 3.1 10^3/uL (1.2-3.4); Absolute Monocytes 0.7 10^3/uL (0.1-0.6); Absolute Neutrophils 3.4 10^3/uL (1.4-6.5); Hematocrit 27.8 % (37.0-47.0); Hemoglobin 9.5 g/dL (12.0-16.0); Mean Corp Hgb Conc. 34.2 g/dL (33.0-37.0); Mean Corpuscular Hgb 29.2 pg (27.0-31.0); Mean Corpuscular Volume 85.5 fL (81.0-99.0); Mean Platelet Volume 8.7 fL (7.4-10.4); Nucleated Red Blood Cells % 0 %; Platelet Count 249 10^3/uL (130-400); Red Blood Cell Count 3.25 10^6/uL (4.20-5.40); Red Cell Dist. Width 13.8 % (11.5-14.5); White Blood Cell Count 7.5 10^3/uL (4.8-10.8)
[2024-09-22 04:07] LABS: Blood Urea Nitrogen 11 mg/dl (7-17); Calcium 8.1 mg/dl (8.4-10.2); Carbon Dioxide 26 mmol/L (22-30); Chloride 103 mmol/L (98-107); Estimated Creatinine Clearance 74 ml/min; Glucose 93 mg/dl (70-99); Potassium 3.5 mmol/L (3.5-5.1); Sodium 134 mmol/L (135-145); eGFR > 60.00
[2024-09-22] MEDS: ZOSYN 50 IV (05:31)
[2024-09-22] MEDS: SPIRIVA RESPIMAT 2.5 MCG 2 PUFF INH (07:40)
--- NOTE | 2024-09-22 07:46 | W.PN.NEURO.1 ---
Today's Communication / Plan
-
.
Subjective/Objective
Subjective Data
Date of Service: September 22, 2024
Neurology follow-up note
Ms. Pierson reports no complaints.
Transiently hypotensive overnight down to 91/57, afebrile
Na 134.
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
PSH: R mastectomy,
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
All: NKDA
ROS: Unable due to encephalopathy
General: Asleep in no acute distress.
Cardio: Regular rate and rhythm. Extremities are without cyanosis or edema.
Neuro:
Mental Status: Awake, oriented to name only did not know current year, month, season, her age. Knew the date and months of her but not year. Follows simple requests.
Cranial Nerves: Pupils are equally round and reactive to light. Orthophoric primary gaze, no nystagmus. Blinks to threat bilaterally. No facial weakness, hearing preserved. No dysarthria.
Motor: No PT or arm drift.
Reflexes: No clonus bilaterally at the ankle.
Coordination: No tremors myoclonic movements.
Gait: deferred
Assessment and Plan:
I. Acute symptomatic seizure due to hyponatremia, significantly improved
II. Mixed dementia
III. Right MCA territory infarct.
IV. History of right breast cancer (s/p chemo and RT)
- Aspiration precautions.
- Continue IV thiamine
- Continue aspirin 81 mg once a day
- Please recall neurology service with any acute findings on brain MRI.
I personally reviewed all radiology and labs along with past medical records pertinent to current medical problems. Total time spent in patient care is 36 minutes.
Thank you for allowing us to participate in the care of this patient. Please do not hesitate to contact us with any questions or concerns.
Objective Data
Vital Signs
Temp Pulse Resp BP Pulse Ox
36.5 C 53 15 94/50 94
09/22/24 03:49 09/22/24 06:00 09/22/24 06:00 09/22/24 06:00 09/22/24 03:49
Lab Results
09/22/24 03:27
Sodium 134 mmol/L (135-145) L 09/22/24 03:27
Potassium 3.5 mmol/L (3.5-5.1) 09/22/24 03:27
BUN 11 mg/dl (7-17) 09/22/24 03:27
Glucose 93 mg/dl (70-99) 09/22/24 03:27
Calcium 8.1 mg/dl (8.4-10.2) L 09/22/24 03:27
Phosphorus 2.8 mg/dl (2.5-4.5) 09/20/24 00:56
Qro-X-Gpyssammoyh Pept 46553 pg/ml 09/20/24 06:19
LDL Cholesterol, Calc 56 mg/dl 09/20/24 17:31
Patient Allergies
No Known Allergies Allergy (Verified 09/19/24 21:08)
Vital Signs and Labs
-
Vital Signs and Labs:
Vital Signs
Temp Pulse Resp BP Pulse Ox
36.8 C 60 19 129/73 100
09/22/24 08:00 09/22/24 08:59 09/22/24 08:00 09/22/24 08:59 09/22/24 08:56
Lab Results
09/22/24 03:27
Sodium 134 mmol/L (135-145) L 09/22/24 03:27
Potassium 3.5 mmol/L (3.5-5.1) 09/22/24 03:27
BUN 11 mg/dl (7-17) 09/22/24 03:27
Glucose 93 mg/dl (70-99) 09/22/24 03:27
Calcium 8.1 mg/dl (8.4-10.2) L 09/22/24 03:27
Phosphorus 2.8 mg/dl (2.5-4.5) 09/20/24 00:56
Wqg-E-Bthmrywabbs Pept 50225 pg/ml 09/20/24 06:19
LDL Cholesterol, Calc 56 mg/dl 09/20/24 17:31
Medications
-
Medications:
Generic Name Dose Route Start Last Admin
Trade Name Freq PRN Reason Stop Dose Admin
Aspirin 81 mg 09/22/24 08:00 09/22/24 08:55
Aspirin 81 Mg (Enteric Coated) Tablet PO 10/20/24 07:59 81 mg
DAILY MC Administration
Heparin Sodium 5,000 units 09/20/24 08:00 09/22/24 08:55
Heparin 5,000 Units/Ml 1 Ml Vial SC 10/18/24 07:59 5,000 units
Q12 MC Administration
Norepinephrine Bitartrate 4 mg in 250 mls @ 0 mls/hr 09/19/24 23:15 09/20/24 23:12
Levophed IV 250 mls
PER PROTOCOL MC Administration
Protocol
Per Protocol
Piperacillin Sod/Tazobactam Sod 3.375 gram in 50 mls @ 100 mls/hr 09/20/24 00:00 09/22/24 05:31
Zosyn IV 50 mls
Q6 MC Administration
Levetiracetam 500 mg 09/20/24 08:00 09/22/24 08:56
Levetiracetam (100 Mg/Ml) 500 Mg/5 Ml Vial IV 10/18/24 07:59 500 mg
Q12 MC Administration
Mirtazapine 15 mg 09/21/24 22:00 09/21/24 22:13
Mirtazapine 15 Mg Regular Release Tablet PO 10/19/24 21:59 15 mg
HS MC Administration
Sodium Chloride 0 flush 09/19/24 23:00
Sodium Chloride 0.9% (Flush) Syringe IV 10/17/24 22:59
PER PROTOCOL MC
Thiamine HCl 100 mg 09/22/24 08:00 09/22/24 08:55
Thiamine 100 Mg Tablet PO 10/20/24 07:59 100 mg
DAILY MC Administration
Tiotropium [place] 2 puff 09/21/24 14:00 09/22/24 07:40
Tiotropium (Spiriva Respimat) 2.5 Mcg Inhaler INH 10/19/24 13:59 2 puff
R DAILY MC Administration
Protocol
Home Medications
-
Home Medications
mirtazapine 15 mg tablet 15 mg PO HS 30 days #30 tabs 03/12/24
thiamine HCl (vitamin B1) 100 mg tablet 100 mg PO DAILY 30 days #30 tabs 03/12/24
tiotropium bromide 18 mcg capsule with inhalation device (Spiriva with HandiHaler) 1 cap inhalation DAILY 09/20/24
--- NOTE | 2024-09-22 08:45 | PTCARENOTE ---
Rec'd care of patient at 0700. Patient oriented only to self. Confused/forgetful. SB/NSR with BBB and prolonged QT on tele. Lung sounds shallow/diminished throughout. Pulse ox 100% on RA. +BS. Ambulatory to bathroom for BM and voiding needs. Patient
steady on feet. Standby supervision. Left midline flushed and capped. Assisted with hygiene needs.
[2024-09-22] MEDS: HEPARIN 5000 UNITS SC (08:55)
[2024-09-22] MEDS: VITAMIN B1 100 MG PO (08:55)
[2024-09-22] MEDS: ASPIR LOW (ENTERIC COATED) 81 MG PO (08:55)
[2024-09-22] MEDS: KEPPRA 500 MG IV (08:56)
--- NOTE | 2024-09-22 09:37 | W.PN.NEPH.PH ---
Today's Communication / Plan
-
Sign off
Assessment/Plan
-
Impression:
Hyponatremia acute on chronic with associated seizure
Dementia at baseline
Hypotension
Leukocytosis
right MCA CVA old
Plan:
follow BMP
no IVF for now
speech eval
Uosm 100 and Liudmila 17. not excess ADH.
Sodium 134
Maintain fluid striction
Will sign off
-
-
Date of Service: September 22, 2024
CC / HPI / ROS
-
Chief Complaint:
hyponatremia
History of Present Illness:
Na up to 134
Extubated
BP stable,
critically ill in ICU
Review of Systems:
no CP/SOB
Labs
-
Labs:
WBC 7.5 10^3/uL (4.8-10.8) 09/22/24 03:27
RBC 3.25 10^6/uL (4.20-5.40) L 09/22/24 03:27
Hgb 9.5 g/dL (12.0-16.0) L 09/22/24 03:27
Hct 27.8 % (37.0-47.0) L 09/22/24 03:27
Plt Count 249 10^3/uL (130-400) D 09/22/24 03:27
eGFR > 60.00 09/22/24 03:27
Phosphorus 2.8 mg/dl (2.5-4.5) 09/20/24 00:56
Kqv-N-Nkxzrwhuhsr Pept 03628 pg/ml 09/20/24 06:19
Albumin 3.7 g/dl (3.5-5.0) 09/20/24 06:19
Physical Exam
-
Vital Signs:
Vital Signs
Temp Pulse Resp BP Pulse Ox
98.3 F 60 19 129/73 100
09/22/24 08:00 09/22/24 08:59 09/22/24 08:00 09/22/24 08:59 09/22/24 08:56
Cardiovascular:: Regular rate and rhythm
Respiratory:: Bilateral: CTA
Lung Excursion:: Normal
Abdomen:: Nontender and Soft
Bowel Sounds:: Normal
Extremity Edema:: None: Bilateral:
--- NOTE | 2024-09-22 11:29 | W.PN.HOSP.TC ---
Addendum entered and electronically signed by Darron Mcdowell MD 09/24/24 09:02:
After study, there is no protein calorie malnutrition
Original Note:
Today's Communication/Plan
-
Monitor vital signs see plan
Per case packer and sealer, needs PT/OT evaluation prior to discharge
Discussed with daughter over the phone
Patient mental status improved
Discussed with neurology, no Keppra needed
DC further antibiotics
Discharge today
Maintain fluid restriction
Time of discharge 38 minutes
Assessment / Plan
Assessment / Plan
General: No Apparent Distress,lethargic
HEENT: Normocephalic and Atraumatic
Respiratory: Clear to Auscultation; Negative Wheezes
Cardiac: Regular Rhythm and S1/S2
GI: Soft and Nontender
Musculoskeletal: No Edema
Neuro: Awake
Psych: Calm and Apparent Dementia
Acute metabolic encephalopathy secondary to hyponatremia
Has prior history of hyponatremia. Suspect polydipsia
- Sodium 118 on admission
Na slowly improving; 134. per nephrology keep fluid restriction
now mentation better and back to baseline; follow BMP
nephrology following
-CT head shows moderate-sized chronic transcortical infarct in the right middle cerebral artery
cleared by speech for regular diet; monitor for fluid restriction
elevated bnp; clinically she looked dehydrated. Echo with preserved EF. X-ray without fluid overload
# Hyponatremia associated seizure
- Keppra 1000 mg given on admission, on 500 twice daily. Discussed with neurology Dr. Pelletier and no keppra needed anymore
CT head with chronic moderate size transcortical infarct in the right middle cerebral artery territory
Neurology following
Aspirin
EEG is generalized slowing
Acute hypoxic respiratory insufficiency likely secondary to aspiration pneumonitis with seizure
Likely was secondary to pneumonitis. DC further antibiotics
weaned off o2
Met SIRS criteria on admission however no blood cultures were checked. Leukocytosis could likely be secondary to seizure. will dc abx if sx continue to improve
Lactic acidosis on admission
Resolved
History of CVA
Vascular dementia
Former alcohol use
-not drinking since in [place]
Protein calorie malnutrition
Breast cancer status post mastectomy/chemotherapy/radiation
DNR/DNI
DVT prophylaxis�heparin
PT/OT per CM request
Anticipated Discharge: Today
Subjective/Interval History
-
Date of Service: September 22, 2024
denies pain
Objective Data
-
Labs:
Laboratory Results
09/22/24 09/22/24
03:27 17:00
WBC 7.5
Hgb 9.5 L
Hct 27.8 L
Plt Count 249 D
Sodium 134 L Pending
Potassium 3.5 Pending
Chloride 103 Pending
Carbon Dioxide 26 Pending
BUN 11 Pending
Creatinine 0.6 Pending
Glucose 93 Pending
Calcium 8.1 L Pending
Vital Signs:
Vital Signs
Temp Pulse Resp BP Pulse Ox
98 F 68 12 146/77 100
09/22/24 11:16 09/22/24 10:01 09/22/24 10:01 09/22/24 10:01 09/22/24 08:56
I&O
09/21/24 09/22/24 09/23/24
06:59 06:59 06:59
Intake Total 1514.65 / 1525.95 693.9 / 693.9 240 / 240
Output Total 1525 / 1525 150 / 150
Balance -10.35 / 0.95 543.9 / 543.9 240 / 240
--- NOTE | 2024-09-22 11:40 | W.DCSUMMARY ---
Discharge Summary
Discharge Data
Date of Admission: 09/19/24
Date of Discharge: 09/22/24
-
Pending Results: No
Hospital Course
69-year-old female with past medical history of hyponatremia, CVA, vascular dementia, alcohol use, breast cancer s/p mastectomy/chemotherapy/radiation came to the hospital with acute metabolic encephalopathy secondary to hyponatremia. Patient also
had seizure associated with hyponatremia and was initially started on Keppra. It was determined that patient seizure was likely secondary to hyponatremia and neurology recommended against use of Keppra on discharge since hyponatremia resolved.
Patient was also seen by nephrology for hyponatremia and it was determined that this was likely due to polydipsia. Patient was then put on fluid restriction. Patient did had elevated BNP however did not have any signs of fluid overload.
Echocardiogram showed preserved EF. On this hospitalization patient also had acute hypoxic respiratory insufficiency which was likely thought was secondary to aspiration pneumonitis due to seizure. Initially patient was started on antibiotics
which was later discontinued. Patient mental status continued to improve over time and since her symptoms improved, she was then discharged back to [facility] with instruction to follow-up with all her physicians outpatient.
Discharge Plan
-
Patient Disposition: Other
Discharge Diagnosis/Procedures: Acute metabolic encephalopathy secondary to hyponatremia
Hyponatremia associated seizure
Polydipsia
Acute hypoxic respite insufficiency secondary to aspiration pneumonitis due to seizure
Diet: As tolerated and Other diet
Additional Diets: 50oz fluid restriction
Activity: As tolerated
Driving Restrictions: As prior to admission
Bathing Restrictions: None
Blood Work: Repeat BMP later this week or next week
Referrals:
Bk Barnett MD [Family Provider] - in less than 1 week
Damon Cronin DO [Active] -
Minnie Pelletier MD [Active] -
Prescriptions:
New
aspirin 81 mg Tablet,Delayed Release (Dr/Ec)
81 mg PO DAILY Qty: 30 0RF
Continued
thiamine HCl (vitamin B1) 100 mg Tablet
100 mg PO DAILY 30 Days Qty: 30 1RF
mirtazapine 15 mg Tablet
15 mg PO HS 30 Days Qty: 30 1RF
tiotropium bromide [Spiriva with HandiHaler] 18 mcg Capsule, W/Inhalation Device
1 cap INHALATION DAILY
Discharge Orders:
Discharge Patient (As Directed); Ordered 09/22/24
Ordered By: Darron Mcdowell
Discharge Date and Time
Discharge Date/Time: 09/22/24 14:12
Print Language: PAKISTANI
--- NOTE | 2024-09-22 12:07 | CM ---
Reviewed the chart notes and spoke with the patient's spouse via telephone. IMM reviewed.
--- NOTE | 2024-09-22 12:30 | PTCARENOTE ---
Patient ambulatory in [facility] with PT/OT.
--- NOTE | 2024-09-22 12:34 | PTOTSP ---
PATIENT ABLE TO MOBILIZE WITH SUPERVISION WITHOUT A DEVICE. IN ROOM AND RN REQUESTED THAT CHAIR ALARM NOT BE ENGAGED AT THIS TIME. PATIENT APPEARS AT HER BASELINE TO RETURN TO [facility]. WILL DISCHARGE FROM THERAPY SERVICES.
--- NOTE | 2024-09-22 13:07 | PTCARENOTE ---
Discharge orders placed. CM spoke with patient's . Plan for to transport patient back to [place]. VAT contacted to remove midline.
--- NOTE | 2024-09-22 13:56 | PTCARENOTE ---
Discharge paperwork reviewed with patient's . All questions answered. verbalizes understanding.
--- NOTE | 2024-09-22 14:58 | PN.CDI ---
CDI
- -
CDI:
Physician Documentation Request
Admit Date: 09/19/24 23:10
Dear Doctor Jeremias,
Please review the following and provide your response in the progress notes.
Clinical Indicators:
Documentation includes the diagnosis of malnutrition. Other clinical indicators are:
Pt Admitted with Hyponatremia/Metabolic encephalopathy
Documented per H&P and progress notes 09/20 -09/22,' Protein calorie malnutrition...'
To ensure the quality of the medical record, based on the above information and the recognized standards for malnutrition , could you please verify in your progress notes which of the following responses best reflects the patient's nutritional
status:
Malnutrition is/was present and is a clinical diagnosis (please provide additional support in the medical record)
After careful study Malnutrition not a valid dx
Other (please specify)
[place] Criteria ([facility] Hospitalist 2017)
2 or more criteria must be present for either
non severe or severe malnutrition
Note that the criteria differs related to the
presence of an acute or chronic illness
Acute Illness Chronic Illness
Energy Intake Non Severe: <75% for >7 days Non Severe: <75% for >1 month
Severe: <50% for >5 days Severe: <75% for >1 month
Weight Loss Non Severe: 1-2% over 1 week Non Severe: 5% over 1 month
5% over 1 month 7.5% over 3 months
7.5% over 3 months 10% over 6 months
1 year N/A 20% over 1 year
Severe: >2% over 1 week Severe: >5% over 1 month
>5% over 1 month >7.5% over 3 months
>7.5% over 3 months >10% over 6 months
1 year N/A >20% over 1 year
Body Fat Non Severe: Mild Decrease Non Severe: Mild Loss
Severe: Moderate Decrease Severe: Severe Loss
Muscle Mass Non Severe: Mild Decrease Non Severe: Mild Loss
Severe: Moderate Decrease Severe: Severe Loss
Fluid Accumulation Non Severe: Mild Accumulation Non Severe: Mild Accumulation
Severe: Moderate to severe Severe: Moderate to severe
accumulation accumulation
Reduced Frozen Food Department Manager Strength Non Severe: N/A Non Severe: N/A
Severe: Measurably reduced Severe: Measurably reduced
Use of terms such as suspected, likely, concern for, or probable (associated with a specific diagnosis that is being evaluated, monitored, or treated as if it exists) are acceptable and can be coded in the inpatient setting, when documented at the
time of discharge.
Thank you,
Elvira Patel RN
CDI Specialist
[place] Text
Please use your independent medical judgment in providing your response.
--- NOTE | 2024-09-22 15:02 | PN.CDI ---
CDI
- -
CDI:
Physician Documentation Request
Admit Date: 09/19/24 23:10
Dear Doctor,
Please review the following and provide your response in the progress notes.
Clinical Indicators:
Pt Admitted with Hyponatremia/Metabolic encephalopathy /Seizure
Drapery Rod Assembler consult and progress notes , ' Shock with concern for aspiration....Currently on Levophed ...'
Please clarify which of the following is the most likely etiology of the above symptoms and treatment rendered:
Dug induced shock
Hypovolemic shock
Other ( please specify )
Use of terms such as suspected, likely, concern for, or probable (associated with a specific diagnosis that is being evaluated, monitored, or treated as if it exists) are acceptable and can be coded in the inpatient setting, when documented at the
time of discharge.
Thank you,
Elvira Patel RN
CDI Specialist
[place] Text
Please use your independent medical judgment in providing your response.
--- NOTE | 2024-09-29 11:22 | W.PN.UPDATE ---
Update Note
Progress Note Update
Shock with concern for Aspiration. Infectious work up negative. Shock of unclear etiology, required Pressors briefly, since resolved.
== END 2024-09-22 14:12 | disposition home or self-care (01) | DRG 640 ==
LOC: ICU 23:10
PROVIDERS: Nurse Practitioner Family; Physician Assistant; ADMITTING PHYSICIAN Hospitalist; ATTENDING PHYSICIAN Internal Medicine; CONSULT PHYSICIAN Psychiatry & Neurology Neurology; EMERGENCY PHYSICIAN Emergency Medicine; FAMILY PHYSICIAN Family Medicine; OTHER PHYSICIAN Internal Medicine; OTHER PHYSICIAN Specialist
DX: E87.1 Hypo-osmolality and hyponatremia (principal); G93.41 Metabolic encephalopathy; J69.0 Pneumonitis due to inhalation of food and vomit; F01.52 Vascular dementia, unspecified severity, with psychotic disturbance; R65.10 Systemic inflammatory response syndrome (SIRS) of non-infectious origin without acute organ dysfunction; R57.9 Shock, unspecified; G40.409 Other generalized epilepsy and epileptic syndromes, not intractable, without status epilepticus; R63.1 Polydipsia; R09.02 Hypoxemia; Z86.73 Personal history of transient ischemic attack (TIA), and cerebral infarction without residual deficits; Z68.20 Body mass index [BMI] 20.0-20.9, adult; Z85.3 Personal history of malignant neoplasm of breast; Z90.11 Acquired absence of right breast and nipple; Z92.3 Personal history of irradiation; Z92.21 Personal history of antineoplastic chemotherapy; Z66 Do not resuscitate; F10.91 Alcohol use, unspecified, in remission; E87.4 Mixed disorder of acid-base balance; F17.200 Nicotine dependence, unspecified, uncomplicated; H55.00 Unspecified nystagmus; Z87.440 Personal history of urinary (tract) infections
CPT/HCPCS: 93308; 70450; 71045; 80048; 80053; 80061; 80143; 80179; 81003; 82077; 82550; 82570; 82805; 82962; 83605; 83735; 83880; 83930; 83935; 84100; 84300; 85025; 87070; 92526; 92610; 93005; 93321; 93325; 94640; 95816; 96374; 96375; 97162; 97166; 99291; 99292; J2597

== ENCOUNTER → 2024-09-24 09:25 | Outpatient (REF) | payer MEDICARE, SELFPAY ==
[2024-09-24 10:53] LABS: Blood Urea Nitrogen 7 mg/dl (7-17); Calcium 9.1 mg/dl (8.4-10.2); Carbon Dioxide 26 mmol/L (22-30); Chloride 106 mmol/L (98-107); Glucose 95 mg/dl (70-99); Potassium 4.1 mmol/L (3.5-5.1); Sodium 140 mmol/L (135-145); eGFR > 60.00
== END ==
LOC: OLABSOL 09:25
PROVIDERS: ATTENDING PHYSICIAN Nurse Practitioner Adult Health
DX: R94.4 Abnormal results of kidney function studies (principal)
CPT/HCPCS: 36415; 80048

== ENCOUNTER → 2024-10-08 10:48 | Outpatient (REF) | payer MEDICARE, SELFPAY ==
[2024-10-08 11:42] LABS: Blood Urea Nitrogen 7 mg/dl (7-17); Calcium 8.9 mg/dl (8.4-10.2); Carbon Dioxide 25 mmol/L (22-30); Chloride 109 mmol/L (98-107); Glucose 100 mg/dl (70-99); Potassium 5.1 mmol/L (3.5-5.1); Sodium 139 mmol/L (135-145); eGFR > 60.00
== END ==
LOC: OLABSOL 10:48
PROVIDERS: ATTENDING PHYSICIAN Nurse Practitioner Adult Health
DX: R04.9 Hemorrhage from respiratory passages, unspecified (principal)
CPT/HCPCS: 36415; 80048

== ENCOUNTER → 2024-10-20 09:49 | Outpatient (REF) | payer MEDICARE, SELFPAY ==
[2024-10-20 11:56] LABS: NT-proBNP 859 pg/ml
== END ==
LOC: OLABSOL 09:49
PROVIDERS: ATTENDING PHYSICIAN Nurse Practitioner Adult Health
DX: R79.89 Other specified abnormal findings of blood chemistry (principal)
CPT/HCPCS: 36415; 83880

== ENCOUNTER → 2024-11-03 10:11 | Outpatient (REF) | payer MEDICARE, SELFPAY ==
[2024-11-03 11:11] LABS: Blood Urea Nitrogen 16 mg/dl (7-17); Calcium 8.7 mg/dl (8.4-10.2); Carbon Dioxide 25 mmol/L (22-30); Chloride 110 mmol/L (98-107); Glucose 97 mg/dl (70-99); Potassium 4.6 mmol/L (3.5-5.1); Sodium 141 mmol/L (135-145); eGFR > 60.00
== END ==
LOC: OLABSOL 10:11
PROVIDERS: ATTENDING PHYSICIAN Nurse Practitioner Adult Health
DX: R94.01 Abnormal electroencephalogram [EEG] (principal)
CPT/HCPCS: 36415; 80048

== ENCOUNTER → 2024-11-24 11:56 | Outpatient (REF) | payer MEDICARE, SELFPAY ==
[2024-11-24 13:39] LABS: Blood Urea Nitrogen 15 mg/dl (7-17); Calcium 8.7 mg/dl (8.4-10.2); Carbon Dioxide 24 mmol/L (22-30); Chloride 109 mmol/L (98-107); Glucose 93 mg/dl (70-99); Potassium 4.7 mmol/L (3.5-5.1); Sodium 138 mmol/L (135-145); eGFR > 60.00
== END ==
LOC: OLABSOL 11:56
PROVIDERS: ATTENDING PHYSICIAN Nurse Practitioner Adult Health
DX: R94.4 Abnormal results of kidney function studies (principal)
CPT/HCPCS: 36415; 80048

== ENCOUNTER → 2024-12-06 11:49 | Outpatient (REF) | payer MEDICARE, SELFPAY ==
[2024-12-06 13:41] LABS: Blood Urea Nitrogen 15 mg/dl (7-17); Calcium 8.7 mg/dl (8.4-10.2); Carbon Dioxide 27 mmol/L (22-30); Chloride 108 mmol/L (98-107); Glucose 87 mg/dl (70-99); Potassium 4.5 mmol/L (3.5-5.1); Sodium 138 mmol/L (135-145); eGFR > 60.00
== END ==
LOC: OLABSOL 11:49
PROVIDERS: ATTENDING PHYSICIAN Nurse Practitioner Adult Health
DX: R94.4 Abnormal results of kidney function studies (principal)
CPT/HCPCS: 36415; 80048

== ENCOUNTER → 2025-01-07 10:19 | Outpatient (REF) | payer MEDICARE, SELFPAY ==
[2025-01-07 11:23] LABS: Blood Urea Nitrogen 17 mg/dl (7-17); Calcium 8.2 mg/dl (8.4-10.2); Carbon Dioxide 27 mmol/L (22-30); Chloride 111 mmol/L (98-107); Glucose 98 mg/dl (70-99); Potassium 4.4 mmol/L (3.5-5.1); Sodium 141 mmol/L (135-145); eGFR > 60.00
== END ==
LOC: OLABSOL 10:19
PROVIDERS: ATTENDING PHYSICIAN Nurse Practitioner Adult Health
DX: R79.89 Other specified abnormal findings of blood chemistry (principal)
CPT/HCPCS: 36415; 80048

== ENCOUNTER → 2025-02-09 09:35 | Outpatient (REF) | payer MEDICARE, SELFPAY ==
[2025-02-09 10:48] LABS: Blood Urea Nitrogen 15 mg/dl (7-17); Calcium 8.5 mg/dl (8.4-10.2); Carbon Dioxide 24 mmol/L (22-30); Chloride 108 mmol/L (98-107); Glucose 102 mg/dl (70-99); Potassium 4.3 mmol/L (3.5-5.1); Sodium 138 mmol/L (135-145); eGFR > 60.00
== END ==
LOC: OLABSOL 09:35
PROVIDERS: ATTENDING PHYSICIAN Nurse Practitioner Adult Health
DX: R79.9 Abnormal finding of blood chemistry, unspecified (principal)
CPT/HCPCS: 36415; 80048

== ENCOUNTER → 2025-04-01 09:57 | Outpatient (REF) | payer MEDICARE, SELFPAY ==
[2025-04-01 12:15] LABS: Blood Urea Nitrogen 13 mg/dl (7-17); Calcium 8.7 mg/dl (8.4-10.2); Carbon Dioxide 27 mmol/L (22-30); Chloride 106 mmol/L (98-107); Glucose 91 mg/dl (70-99); Magnesium 2.0 mg/dl (1.6-2.3); Potassium 4.5 mmol/L (3.5-5.1); Sodium 136 mmol/L (135-145); eGFR > 60.00
[2025-04-01 13:07] LABS: Vitamin B12 164 pg/ml (239-931)
== END ==
LOC: OLABSOL 09:57
PROVIDERS: ATTENDING PHYSICIAN Nurse Practitioner Adult Health
DX: R79.89 Other specified abnormal findings of blood chemistry (principal); G70.00 Myasthenia gravis without (acute) exacerbation; D51.0 Vitamin B12 deficiency anemia due to intrinsic factor deficiency
CPT/HCPCS: 36415; 80048; 82607; 83735

== ENCOUNTER → 2025-04-29 09:52 | Outpatient (REF) | payer MEDICARE, SELFPAY ==
[2025-04-29 11:19] LABS: Hematocrit 36.1 % (37.0-47.0); Hemoglobin 11.9 g/dL (12.0-16.0); Mean Corp Hgb Conc. 33.0 g/dL (33.0-37.0); Mean Corpuscular Volume 88.5 fL (81.0-99.0); Nucleated Red Blood Cells % 0 %; Platelet Count 248 10^3/uL (130-400); Red Cell Dist. Width 14.5 % (11.5-14.5)
[2025-04-29 11:41] LABS: Blood Urea Nitrogen 16 mg/dl (7-17); Calcium 8.6 mg/dl (8.4-10.2); Carbon Dioxide 24 mmol/L (22-30); Chloride 108 mmol/L (98-107); Glucose 99 mg/dl (70-99); Magnesium 1.9 mg/dl (1.6-2.3); Potassium 4.3 mmol/L (3.5-5.1); Sodium 137 mmol/L (135-145); eGFR > 60.00
== END ==
LOC: OLABSOL 09:52
PROVIDERS: ATTENDING PHYSICIAN Nurse Practitioner Adult Health
DX: R79.89 Other specified abnormal findings of blood chemistry (principal); D64.9 Anemia, unspecified; G70.00 Myasthenia gravis without (acute) exacerbation
CPT/HCPCS: 36415; 80048; 83735; 85025